=== PATIENT | female | born 1965 | race Caucasian/White ===

== ENCOUNTER 2016-09-28 16:53 | Inpatient (IN) | payer SELFPAY ==
[~2016-09-28] VITALS: Ht 160 cm; Wt 61.2 kg
[~2016-09-28 16:53] MED LIST: AMOX1TAB61 PO; CIPR250T30 PO; IBUP-1060 PO; INSU100C SQ; INSU100I13 SQ; INSU100I27 SQ
[2016-09-28] MEDS: IV NORMAL SALINE 1000ML BAG 1,000 ML IV SCH ×4 (17:45→23:00)
[2016-09-28 18:13] LABS: BASO # 0.1 x10^3/uL (0.0-0.2); BASO % 0 % (0-3); EOS % 0 % (0-3); HEMATOCRIT 40.4 % (36.0-47.0); HEMOGLOBIN 12.4 g/dL (12.0-15.5); LYMPH # 0.9 x10^3/uL (1.0-4.8); LYMPH % 3 % (24-48); MEAN CORPUSCULAR HEMOGLOBIN 27 pg (25-35); MEAN CORPUSCULAR HGB CONC 31 g/dL (31-37); MEAN CORPUSCULAR VOLUME 90 fL (79-100); MONO % 5 % (0-9); NEUT % 92 % (31-73); PLATELET COUNT 379 x10^3/uL (140-400); RED BLOOD COUNT 4.51 x10^6/uL (3.50-5.40); WHITE BLOOD COUNT 28.2 x10^3/uL (4.0-11.0)
[2016-09-28] MEDS ORDERED: INSULIN,REGULAR 150 UNIT DRIP 150 ML IV ONE (18:15)
[2016-09-28] MEDS ORDERED: ONDANSETRON PF 4 MG/2 ML VIAL. IV ONE (18:30)
[2016-09-28 18:34] LABS: CALCIUM 9.8 mg/dL (8.5-10.1); CREATININE 2.7 mg/dL (0.6-1.0); GFR 18.7; POTASSIUM 5.6 mmol/L (3.5-5.1); TOTAL BILIRUBIN 0.8 mg/dL (0.2-1.0)
[2016-09-28 18:37] LABS: PLT ESTIMATE DECREASED (ADEQUATE); TOXIC GRANULATION MOD; TOXIC VACUOLATION MOD
--- NOTE | 2016-09-28 19:19 | PHYS DOC ---
Past Medical History Past Medical History: Anxiety, Depression, Diabetes-Type I Additional Past Medical Histor: type 1 dm Past Surgical History: , Other Additional Past Surgical Histo: cataract bilat Alcohol Use: None Drug Use: None Adult General Chief Complaint Chief Complaint: NAUSEA/VOMITING/DIARRHA HPI HPI Patient is a 51 year old female who presents with complaint of nausea, vomiting , and abdominal pain. Patient states that her symptoms started 2 days ago and it severely worsened. The patient's positive emergency department by her mother. The patient has history of type 1 diabetes mellitus. Mother states that the patient came to her house yesterday complaining of her glucometer not being able to read her blood sugar level due to being too high. Despite treatment with insulin, the patient continue to get sicker and thus they came to the emergency department. Patient has been admitted in the past for diabetic complications and diabetic ketoacidosis. The patient is currently having difficulty providing any further history and appears quite ill at this time. Review of Systems Review of Systems Constitutional: Weakness, Denies fever or chills [] Eyes: Denies change in visual acuity, redness, or eye pain [] HENT: Denies nasal congestion or sore throat [] Respiratory: Denies cough or shortness of breath [] Cardiovascular: No additional information not addressed in HPI [] GI: Abdominal pain, nausea, vomiting, bloody stools or diarrhea [] : Denies dysuria or hematuria [] Musculoskeletal: Denies back pain or joint pain [] Integument: Denies rash or skin lesions [] Neurologic: Denies headache, focal weakness or sensory changes [] Endocrine: Polyuria, polydipsia Current Medications Current Medications Current Medications Medications (Trade) Dose Ordered Sig/Reji Start Time Stop Time Status Last Admin Dose Admin Acetaminophen 650 mg 650 mg PRN Q4HRS PRN 09/28/16 19:30 09/29/16 19:29 Fentanyl Citrate (Fentanyl 2ml Vial) 50 mcg PRN Q2HR PRN 09/28/16 19:30 09/29/16 19:29 Insulin Human Regular (Novolin R Iv Drip) 150 ml @ 0 mls/hr 1X ONCE 09/28/16 18:15 09/28/16 18:16 DC 09/28/16 18:58 18.5 MLS/HR Ondansetron HCl (Zofran) 4 mg PRN Q8HRS PRN 1/3/17 19:30 09/29/16 19:29 Potassium Chloride 100 ml @ 100 mls/hr PRN Q1HR PRN 09/28/16 19:30 Sodium Chloride (Iv Sodium Chloride 0.9% 1000ml Bag) 1,000 ml @ 250 mls/hr Q4H 09/28/16 20:14 Allergies Allergies Allergies Coded Allergies Type Severity Reaction Last Updated Verified No Known Drug Allergies 07/01/16 No Physical Exam Physical Exam Constitutional: Alert, afebrile, appears ill. [] HENT: Normocephalic, atraumatic, bilateral external ears normal, oropharynx dry , no oral exudates, nose normal. [] Eyes: PERRLA, EOMI, conjunctiva normal, no discharge. [] Neck: Normal range of motion, no tenderness, supple, no stridor. [] Cardiovascular: Tachycardia, regular rhythm, no murmur [] Lungs & Thorax: Tachypnea, breath sounds clear bilaterally, chest nontender to palpation [] Abdomen: Bowel sounds normal, soft, diffusely tender to palpation, no masses, no pulsatile masses. [] Skin: Warm, dry, no erythema, no rash. [] Back: No tenderness, no CVA tenderness. [] Extremities: No tenderness, no cyanosis, no clubbing, ROM intact, no edema. [] Neurologic: Lethargic, oriented 3, normal motor function, normal sensory function, no focal deficits noted. [] Current Patient Data Vital Signs Vital Signs Date Time Temp Pulse Resp B/P Pulse Ox O2 Delivery O2 Flow Rate FiO2 09/28/16 20:02 128 25 145/56 100 Room Air 09/28/16 17:00 97.7 97.7 Lab Values Laboratory Tests Test 09/28/16 17:44 09/28/16 19:19 09/28/16 19:21 White Blood Count 28.2x10^3/uL (4.0-11.0) H Red Blood Count 4.51x10^6/uL (3.50-5.40) Hemoglobin 12.4g/dL (12.0-15.5) Hematocrit 40.4% (36.0-47.0) Mean Corpuscular Volume 90fL (79-100) Mean Corpuscular Hemoglobin 27pg (25-35) Mean Corpuscular Hemoglobin Concent 31g/dL (31-37) Red Cell Distribution Width 15.0% (11.5-14.5) H Platelet Count 379x10^3/uL (140-400) Neutrophils (%) (Auto) 92% (31-73) H Lymphocytes (%) (Auto) 3% (24-48) L Monocytes (%) (Auto) 5% (0-9) Eosinophils (%) (Auto) 0% (0-3) Basophils (%) (Auto) 0% (0-3) Neutrophils # (Auto) 25.8x10^3uL (1.8-7.7) H Lymphocytes # (Auto) 0.9x10^3/uL (1.0-4.8) L Monocytes # (Auto) 1.3x10^3/uL (0.0-1.1) H Eosinophils # (Auto) 0.0x10^3/uL (0.0-0.7) Basophils # (Auto) 0.1x10^3/uL (0.0-0.2) Segmented Neutrophils % 93% (35-66) H Band Neutrophils % 2% (0-9) Lymphocytes % 4% (24-48) L Monocytes % 1% (0-10) Toxic Granulation Mod Toxic Vacuolation Mod Platelet Estimate Decreased (ADEQUATE) Sodium Level 134mmol/L (136-145) L Potassium Level 5.6mmol/L (3.5-5.1) H Chloride Level 85mmol/L (98-107) L Carbon Dioxide Level 9mmol/L (21-32) *L Anion Gap 40 (6-14) H Blood Urea Nitrogen 78mg/dL (7-20) H Creatinine 2.7mg/dL (0.6-1.0) H Estimated GFR (Cockcroft-Gault) 18.7 BUN/Creatinine Ratio 29 (6-20) H Glucose Level 983mg/dL (70-99) *H Serum Osmolality 382mOsm/Kg (279-304) H Calcium Level 9.8mg/dL (8.5-10.1) Total Bilirubin 0.8mg/dL (0.2-1.0) Aspartate Amino Transferase (AST) 15U/L (15-37) Alanine Aminotransferase (ALT) 16U/L (14-59) Alkaline Phosphatase 138U/L (46-116) H Total Protein 8.0g/dL (6.4-8.2) Albumin 4.0g/dL (3.4-5.0) Albumin/Globulin Ratio 1.0 (1.0-1.7) Magnesium Level 3.1mg/dL (1.8-2.4) H Urine Collection Type U cath Urine Color Yellow Urine Clarity Clear Urine pH 5.0 Urine Specific Sharon 1.020 Urine Protein Negativemg/dL (NEG-TRACE) Urine Glucose (UA) >=1000mg/dL (NEG) Urine Ketones (Stick) >=80mg/dL (NEG) Urine Blood Negative (NEG) Urine Nitrite Negative (NEG) Urine Bilirubin Negative (NEG) Urine Urobilinogen Dipstick 0.2mg/dL (0.2 mg/dL) Urine Leukocyte Esterase Negative (NEG) Urine RBC 0/HPF (0-2) Urine WBC Rare/HPF (0-4) Urine Squamous Epithelial Cells Few/LPF Urine Transitional Epithelial Cells Occ/LPF Urine Bacteria 0/HPF (0-FEW) Urine Mucus Slight/LPF Laboratory Tests 09/28/16 17:44 Laboratory Tests 09/28/16 17:44 EKG EKG Interpreted by me: Heart rate 121, sinus tachycardia, normal intervals, normal axis, no acute ST/T-wave abnormalities present [] Radiology/Procedures Radiology/Procedures One view AP chest x-ray interpreted by me: No infiltrates, no effusions, normal cardiac silhouette [] Course & Med Decision Making Course & Med Decision Making Pertinent Labs and Imaging studies reviewed. (See chart for details) Patient was started on 2 L of IV fluids in the emergency department. The patient was found to have a high anion gap and critically high blood sugar of 983. Patient was started on an insulin drip and continued on IV fluids. I spoke with Dr. Guadalupe who accepted care patient in hospital. Patient transferred to ICU for further care. Care time excluding procedures: 45 minutes Dragon Disclaimer Dragon Disclaimer This electronic medical record was generated, in whole or in part, using a voice recognition dictation system. Departure Departure Impression: Primary Impression: Diabetic ketoacidosis Additional Impression: Acute renal failure Disposition: ADMITTED INPATIENT Admitting Physician: Other Condition: GUARDED Referrals: NO PCP (PCP) Problem Qualifiers Primary Impression: Diabetic ketoacidosis Diabetes mellitus type: type 1 Diabetes mellitus complication detail: without coma Qualified Code: E10.10 - Type 1 diabetes mellitus with ketoacidosis without coma Additional Impression: Acute renal failure Acute renal failure type: unspecified Qualified Code: N17.9 - Acute kidney failure, unspecified SILVANA LOPEZ MD Sep 28, 2016 19:19
[2016-09-28 19:29] LABS: BILIRUBIN,URINE NEGATIVE (NEG); GLUCOSE,URINE >=1000 mg/dL (NEG); NITRITE,URINE NEGATIVE (NEG); PROTEIN,URINE NEGATIVE (NEG-TRACE); UROBILINOGEN,URINE 0.2 mg/dL (0.2 mg/dL)
[2016-09-28] MEDS ORDERED: ACETAMINOPHEN 325 MG TABLET. PO PRN (19:30)
[2016-09-28] MEDS ORDERED: FENTANYL PF 100 MCG/2 ML VIAL. IV PRN (19:30)
[2016-09-28] MEDS ORDERED: ONDANSETRON PF 4 MG/2 ML VIAL. IV PRN (19:30)
[2016-09-28] MEDS ORDERED: POTASSIUM CHLORIDE 10MEQ 100 ML IV PRN ×5 (19:30→22:30)
[2016-09-28 19:41] LABS: RBC,URINE 0 /HPF (0-2)
[2016-09-28 19:42] LABS: BACTERIA,URINE 0 /HPF (0-FEW); SQUAMOUS EPITHELIAL CELL,UR FEW /LPF; WBC,URINE RARE /HPF (0-4)
[2016-09-28 22:00] VITALS: BP 135/61
[2016-09-28] MEDS ORDERED: SODIUM PHOSPHATE 40 MMOL in IV NORMAL SALINE 500ML BAG 500 ML IV PRN (22:30)
[2016-09-28] MEDS ORDERED: SODIUM PHOSPHATE 10 MMOL in IV DEXTROSE 5% 250 ML IV PRN (22:30)
[2016-09-28] MEDS ORDERED: SODIUM PHOSPHATE 20 MMOL in IV DEXTROSE 5% 250 ML IV PRN (22:30)
[2016-09-28 23:00] VITALS: BP 120/50
[2016-09-28] MEDS ORDERED: INSULIN REGULAR VIAL 150 UNIT in 0.9 % SODIUM CHLORIDE 150ML 150 ML IV PRN (23:00)
[2016-09-28] MEDS: IV DEXTROSE 5 %-0.45 % NACL 1,000 ML IV SCH (23:00)
[2016-09-28] MEDS: IV 1/2 NORMAL SALINE 1,000 ML IV SCH (23:00)
[2016-09-28] MEDS ORDERED: SODIUM BICARBONATE VIAL 50 MEQ in IV 1/2 NORMAL SALINE 1,000 ML IV PRN (23:15)
[2016-09-28 23:17] LABS: NEG OBC UR NEG
[2016-09-28 23:18] LABS: ALBUMIN 3.7 g/dL (3.4-5.0); DIRECT BILIRUBIN 0.1 mg/dL (0.0-0.2); TOTAL BILIRUBIN 0.7 mg/dL (0.2-1.0); TOTAL PROTEIN 8.2 g/dL (6.4-8.2)
[2016-09-28 23:18] LABS: POS OBC UR POS
--- NOTE | 2016-09-28 23:19 | ACF ---
Admission Forms Criteria DIABETES Clinical Indications for Admission to Inpatient Care (Place 'X' for any and all applicable criteria): Admission is indicated by presence of ALL (if I & II) or ANY ONE (if III or IV) of the following (1)(2)(3)(4): [X]I. Diabetes is uncontrolled as indicated by ANY ONE of the following: [ ]a) Diabetic ketoacidosis as indicated by ALL of the following (8): [ ]i) Hyperglycemia (eg, plasma glucose greater than 200 mg/ dL (11.1 mmol/L)) [ ]ii) Acidosis (eg, arterial pH less than 7.30, serum bicarbonate level less than 15 mEq/L (mmol/L)) [ ]iii) Moderate ketonuria or ketonemia [ ]b) Hyperglycemic hyperosmolar state as indicated by ALL of the following(9)(10): [ ]i) Neurologic dysfunction (eg, stupor, coma, hemiparesis , seizure)(13) [ ]ii) Plasma glucose greater than 600 mg/dL (33.3 mmol/L) [ ]iii) Serum osmolality greater than 320 mOsm/kg (mmol/kg) [X]c) Severe signs or symptoms secondary to hyperglycemia indicated by ANY ONE of the following: [ ]i) Altered mental status(10) [ ]ii) Significant hypovolemia or dehydration [X]iii) Intractable nausea or vomiting [ ]iv) Unexplained fever or severe infection [ ]v) Severe electrolyte abnormality (eg, hypokalemia, hyperkalemia, hypernatremia) [X]II. Management at other levels of care (Also use Diabetes: Observation Care as appropriate) is not feasible because of ANY ONE of the following: [X]a) Condition was not adequately corrected with treatment at other levels of care. [ ]b) Treatment at other levels of care is not appropriate because of condition severity (eg, hyperosmolar coma). [ ]III. Contraindications and/or Inappropriate clinical situations for Observational Care in patients with Diabetes, when ANY ONE of the following is required: [ ]a) Patient require specific diagnostic workup or therapeutic intervention 22 [ ]b) Patient with abnormal vital signs or altered mental status 23 [ ]IV. General contraindications and/or Inappropriate clinical situations for Observational Care in patients with Diabetes, when ANY ONE of the following is required: [ ]a) Prediction of prolongation of LOS based on ANY ONE of the following may be considered as a contraindication for observational care 2, 3, 4, 5, 6, 7, 8, 9, 10, 11 [ ]i) Age > 65 yrs. [ ]ii) Patient arriving by ambulance [ ]iii) Patient with high acuity [ ]iv) Patient requiring vital sign monitoring [ ]v) Patient on IV medication [ ]b) Systolic blood pressures 180mmHg 3,12 [ ]c) Patient with altered mental status including delirium and other alteration of consciousness, (3) [ ]d) Patient whose discharge disposition will be to a correction home or rehabilitation home should not be managed in Emergency Department Observation Unit. CMS rule requires 3 days hospital stay before such placement.3,13 [ ]e) Patient with failure to thrive due to broad array of etiologies 3,16,17 [ ]f) Inability to ambulate 3,14 Extended stay beyond goal length of stay may be needed for(3)(20): [ ]a) Treatment of precipitating causes [ ]b) Development of hypoglycemia [ ]c) Complications of treatment [ ]d) Complications of decompensated diabetes (eg, acute gastric dilatation, persistent metabolic or neurologic derangement) [ ]e) Active Comorbidities [ ]f) Older patients( 65 years or older) The original [employer] content created by [employer] has been revised. The portions of the content which have been revised are identified through the use of italic text or in bold,and [facility] has neither reviewed nor approved the modified material. All other unmodified content is copyright [employer]. Please see references footnoted in the original [facility] edition 2016 Admission Criteria Met?: Yes VINCENZO MONDRAGON Sep 28, 2016 23:19
[2016-09-28 23:23] LABS: BARBITURATES NEG (NEG); BENZODIAZEPINES NEG (NEG); CANNABINOIDS NEG (NEG); COCAINE NEG (NEG); METHADONE NEG (NEG); OPIATES NEG (NEG); PHENCYCLIDINE NEG (NEG)
[2016-09-28 23:24] LABS: ETHANOL, URINE NEG (NEG)
[2016-09-29] VITALS (15 sets, daily range): BP systolic 98–185; BP diastolic 37–85
--- NOTE | 2016-09-29 00:10 | HP ---
ADMIT DATE: 09/28/2016 CHIEF COMPLAINT: Nausea, vomiting, diarrhea. HISTORY OF PRESENT ILLNESS: The patient is a 51-year-old woman with type 1 diabetes and previous admissions for hyperglycemia who who presented to the Emergency Room with complaints of nausea, vomiting and abdominal pain that started apparently 2 days prior to presentation. The story is related by her mother as patient apparently was going over to her mom's but has been somewhat incoherent since. She is not able to contribute to the history by herself at this point. Her mother apparently checked her blood sugar with a glucometer and was unable to get any readings as levels were too high. In the Emergency Room, she was found with blood sugars of 983 with a of gap 40, prompting admission for DKA. PAST MEDICAL HISTORY: Diabetes mellitus. FAMILY HISTORY: Diabetes, CAD. SOCIAL HISTORY: Lives by herself. No toxic habits. ALLERGIES: No known drug allergies. MEDICATIONS: MAR reconciled with home medications. REVIEW OF SYSTEMS: Unable to obtain secondary to nonverbal state. PHYSICAL EXAMINATION: VITAL SIGNS: From today show a blood pressure of 119/46, heart rate of 126, respiratory rate at 20, She is afebrile, pulsing at 100% on room air. GENERAL: This is a 51-year-old well-nourished woman, obtunded, resting in bed. HEENT: Shows no scleral icterus. Oral mucosa is dry. NECK: Supple. LUNGS: Fairly clear anteriorly. CARDIOVASCULAR: Tachycardic. ABDOMEN: Positive bowel sounds, some grimacing with palpation of left lower quadrant. EXTREMITIES: Show no edema. SKIN: Warm, soft and dry without any rash. LABORATORY DATA: CBC from today shows a WBC of 28.2, hemoglobin 12.4, platelets of 379, manual diff with segmented neutrophils at 93, bands at 2. Chemistries with a BUN and creatinine of 78 and 2.7. Electrolytes with a sodium of 134, potassium 5.6, chloride 85, carbon dioxide at 9, osmolality at 382. LFTs essentially normal, mildly elevated alkaline phosphatase at 138. Urine with elevated glucose and ketones, no sign of infection. Tox screen was negative. RADIOGRAPHIC IMAGING: Shows a chest x-ray reviewed by myself without any cardiopulmonary abnormalities noted. ASSESSMENT AND PLAN: The patient is a 51-year-old woman presenting in DKA. She has been admitted to the ICU for DKA protocol with insulin drip and fluids as well as electrolyte repletion as indicated. We will monitor glucose closely. Elevated WBC and a left shift, highly suspicious for infectious source. Neither chest x-ray nor urine, however, are revealing. We will obtain blood cultures. Hold off on antibiotics at this time. Creatinine and BUN indicative of acute kidney injury, most likely due to DKA/dehydration. We will monitor with ongoing fluid repletion. Baseline for her is creatinine of 0.7. Prophylaxis will be instituted with PPI IV for the time being as she is n.p.o. MARTITA OROZCO MD DR: JESIKA/nts JOB#: [id number] / [id number] TEGAN
[2016-09-29] MEDS: IV 1/2 NORMAL SALINE 1,000 ML IV SCH ×7 (01:00→17:14)
[2016-09-29] MEDS: IV DEXTROSE 5 %-0.45 % NACL 1,000 ML IV SCH ×4 (03:00→11:36)
[2016-09-29 03:07] LABS: BASO # 0.1 x10^3/uL (0.0-0.2); BASO % 0 % (0-3); EOS % 0 % (0-3); HEMATOCRIT 39.6 % (36.0-47.0); HEMOGLOBIN 12.8 g/dL (12.0-15.5); LYMPH # 1.1 x10^3/uL (1.0-4.8); LYMPH % 5 % (24-48); MEAN CORPUSCULAR HEMOGLOBIN 28 pg (25-35); MEAN CORPUSCULAR HGB CONC 32 g/dL (31-37); MEAN CORPUSCULAR VOLUME 86 fL (79-100); MONO % 7 % (0-9); NEUT % 88 % (31-73); PLATELET COUNT 335 x10^3/uL (140-400); RED BLOOD COUNT 4.59 x10^6/uL (3.50-5.40); RED CELL DISTRIBUTION WIDTH 14.8 % (11.5-14.5); WHITE BLOOD COUNT 22.8 x10^3/uL (4.0-11.0)
[2016-09-29] MEDS ORDERED: SODIUM BICARBONATE VIAL 50 MEQ in IV 1/2 NORMAL SALINE 1,000 ML IV PRN (03:30)
[2016-09-29] MEDS: IV NORMAL SALINE 1000ML BAG 1,000 ML IV SCH ×6 (06:07→11:04)
--- NOTE | 2016-09-29 06:45 | EKG ---
[facility] [address] [place] [id number] Test Date: 2016-09-28 Test Time: 18:36:57 Pat Name: ANDREIA DUARTE Department: Room: 108 1 Gender: F Patient Care Technician: : 1965 Requested By: SILVANA LOPEZ Order Number: [id number] Reading MD: Jessica Mathur Measurements Intervals [place] Rate: 121 P: 56 [place]: 92 QRS: 65 QRSD: 90 T: 25 QT: 310 QTc: 443 Interpretive Statements SINUS TACHYCARDIA LEFT ATRIAL ABNORMALITY Electronically Signed On 10-03-2016 21:47:10 SURVEILLANCE INSPECTOR by Jessica Mathur
[2016-09-29] MEDS ORDERED: DEXTROSE 50% 25 GM / 50ML DISP.SYRIN. IV ONE ×2 (06:53→07:45)
[2016-09-29] MEDS ORDERED: IV DEXTROSE 5 %-0.45 % NACL 1,000 ML IV PRN (07:15)
[2016-09-29] MEDS ORDERED: MAGNESIUM SULFATE 4GM 100 ML IV SCH (09:00)
--- NOTE | 2016-09-29 09:01 | RAD ---
Portable chest, 09/28/2016: History: High blood sugar Comparison is made to a study from 07/03/2016. The heart size and pulmonary vascularity are normal. No pulmonary infiltrates are seen. There is no evidence of pleural fluid. IMPRESSION: No acute cardiopulmonary no mass is detected.
[2016-09-29] MEDS: PANTOPRAZOLE IV PUSH 40 MG VIAL. IVP SCH (09:07)
[2016-09-29 11:24] LABS: MAGNESIUM 2.8 mg/dL (1.8-2.4); PHOSPHORUS 2.9 mg/dL (2.6-4.7); POTASSIUM 4.1 mmol/L (3.5-5.1)
[2016-09-29 11:28] LABS: CALCIUM 9.3 mg/dL (8.5-10.1); CREATININE 2.1 mg/dL (0.6-1.0); GFR 24.9
[2016-09-29 12:12] LABS: CALCIUM 8.6 mg/dL (8.5-10.1); CREATININE 1.5 mg/dL (0.6-1.0); GFR 36.8
[2016-09-29] MEDS ORDERED: DEXTROSE 50% 25 GM / 50ML DISP.SYRIN. IV PRN (12:45)
--- NOTE | 2016-09-29 13:42 | PDOC ---
PROGRESS NOTES Chief Complaint Chief Complaint DKA AMS ASSESSMENT AND PLAN: 1. DKA: on insulin gtt this AM with gap closing. when BG stable, switch to ISS/ long acting insulin, monitor closely 2. AMS: slowly improving, remains nonverbal at this point. drug screen neg. poss 2/2 DKA 3. leukocytosis: reactive, but unk trigger. no sign of focal infect. counts improving. Vitals Vitals Vital Signs Date Time Temp Pulse Resp B/P Pulse Ox O2 Delivery O2 Flow Rate FiO2 09/29/16 12:00 100 20 174/69 98 Room Air 09/29/16 04:00 98.0 98.0 Physical Exam General: No acute distress, Other (obtunded, following simple commands, nonverbal) Heart: Regular rate Lungs: Clear Abdomen: Normal bowel sounds, No tenderness Extremities: No clubbing, No edema Skin: No rashes Labs LABS Laboratory Tests Test 09/28/16 17:44 09/28/16 19:19 09/28/16 19:21 09/28/16 20:22 White Blood Count 28.2x10^3/uL (4.0-11.0) Red Blood Count 4.51x10^6/uL (3.50-5.40) Hemoglobin 12.4g/dL (12.0-15.5) Hematocrit 40.4% (36.0-47.0) Mean Corpuscular Volume 90fL (79-100) Mean Corpuscular Hemoglobin 27pg (25-35) Mean Corpuscular Hemoglobin Concent 31g/dL (31-37) Red Cell Distribution Width 15.0% (11.5-14.5) Platelet Count 379x10^3/uL (140-400) Neutrophils (%) (Auto) 92% (31-73) Lymphocytes (%) (Auto) 3% (24-48) Monocytes (%) (Auto) 5% (0-9) Eosinophils (%) (Auto) 0% (0-3) Basophils (%) (Auto) 0% (0-3) Neutrophils # (Auto) 25.8x10^3uL (1.8-7.7) Lymphocytes # (Auto) 0.9x10^3/uL (1.0-4.8) Monocytes # (Auto) 1.3x10^3/uL (0.0-1.1) Eosinophils # (Auto) 0.0x10^3/uL (0.0-0.7) Basophils # (Auto) 0.1x10^3/uL (0.0-0.2) Segmented Neutrophils % 93% (35-66) Band Neutrophils % 2% (0-9) Lymphocytes % 4% (24-48) Monocytes % 1% (0-10) Toxic Granulation Mod Toxic Vacuolation Mod Platelet Estimate Decreased (ADEQUATE) Sodium Level 134mmol/L (136-145) Potassium Level 5.6mmol/L (3.5-5.1) Chloride Level 85mmol/L (98-107) Carbon Dioxide Level 9mmol/L (21-32) Anion Gap 40 (6-14) Blood Urea Nitrogen 78mg/dL (7-20) Creatinine 2.7mg/dL (0.6-1.0) Estimated GFR (Cockcroft-Gault) 18.7 BUN/Creatinine Ratio 29 (6-20) Glucose Level 983mg/dL (70-99) 796mg/dL (70-99) Serum Osmolality 382mOsm/Kg (279-304) Calcium Level 9.8mg/dL (8.5-10.1) Total Bilirubin 0.8mg/dL (0.2-1.0) 0.7mg/dL (0.2-1.0) Aspartate Amino Transf (AST/SGOT) 15U/L (15-37) 11U/L (15-37) Alanine Aminotransferase (ALT/SGPT) 16U/L (14-59) 16U/L (14-59) Alkaline Phosphatase 138U/L (46-116) 145U/L (46-116) Total Protein 8.0g/dL (6.4-8.2) 8.2g/dL (6.4-8.2) Albumin 4.0g/dL (3.4-5.0) 3.7g/dL (3.4-5.0) Albumin/Globulin Ratio 1.0 (1.0-1.7) Magnesium Level 3.1mg/dL (1.8-2.4) Urine Collection Type U cath Urine Color Yellow Urine Clarity Clear Urine pH 5.[address] [place] 1.020 Urine Protein Negativemg/dL (NEG-TRACE) Urine Glucose (UA) >=1000mg/dL (NEG) Urine Ketones (Stick) >=80mg/dL (NEG) Urine Blood Negative (NEG) Urine Nitrite Negative (NEG) Urine Bilirubin Negative (NEG) Urine Urobilinogen Dipstick 0.2mg/dL (0.2 mg/dL) Urine Leukocyte Esterase Negative (NEG) Urine RBC 0/HPF (0-2) Urine WBC Rare/HPF (0-4) Urine Squamous Epithelial Cells Few/LPF Urine Transitional Epithelial Cells Occ/LPF Urine Bacteria 0/HPF (0-FEW) Urine Mucus Slight/LPF Urine Test Negative (NEG) Urine Opiates Screen Neg (NEG) Urine Methadone Screen Neg (NEG) Urine Barbiturates Neg (NEG) Urine Phencyclidine Screen Neg (NEG) Urine Amphetamine/Methamphetamine Neg (NEG) Urine Benzodiazepines Screen Neg (NEG) Urine Cocaine Screen Neg (NEG) Urine Cannabinoids Screen Neg (NEG) Urine Ethyl Alcohol Neg (NEG) Phosphorus Level 8.0mg/dL (2.6-4.7) Direct Bilirubin 0.1mg/dL (0.0-0.2) Lipase 432U/L (73-393) Ethyl Alcohol Level < 10mg/dL (0-10) Test 09/28/16 22:19 09/28/16 23:25 09/29/16 00:54 09/29/16 00:58 Glucose (Fingerstick) 544mg/dL (70-99) 434mg/dL (70-99) 322mg/dL (70-99) White Blood Count 22.8x10^3/uL (4.0-11.0) Red Blood Count 4.59x10^6/uL (3.50-5.40) Hemoglobin 12.8g/dL (12.0-15.5) Hematocrit 39.6% (36.0-47.0) Mean Corpuscular Volume 86fL (79-100) Mean Corpuscular Hemoglobin 28pg (25-35) Mean Corpuscular Hemoglobin Concent 32g/dL (31-37) Red Cell Distribution Width 14.8% (11.5-14.5) Platelet Count 335x10^3/uL (140-400) Neutrophils (%) (Auto) 88% (31-73) Lymphocytes (%) (Auto) 5% (24-48) Monocytes (%) (Auto) 7% (0-9) Eosinophils (%) (Auto) 0% (0-3) Basophils (%) (Auto) 0% (0-3) Neutrophils # (Auto) 20.1x10^3uL (1.8-7.7) Lymphocytes # (Auto) 1.1x10^3/uL (1.0-4.8) Monocytes # (Auto) 1.6x10^3/uL (0.0-1.1) Eosinophils # (Auto) 0.0x10^3/uL (0.0-0.7) Basophils # (Auto) 0.1x10^3/uL (0.0-0.2) Sodium Level 147mmol/L (136-145) Potassium Level 4.1mmol/L (3.5-5.1) Chloride Level 103mmol/L (98-107) Carbon Dioxide Level 21mmol/L (21-32) Anion Gap 23 (6-14) Blood Urea Nitrogen 67mg/dL (7-20) Creatinine 2.1mg/dL (0.6-1.0) Estimated GFR (Cockcroft-Gault) 24.9 Glucose Level 346mg/dL (70-99) Calcium Level 9.3mg/dL (8.5-10.1) Phosphorus Level 2.9mg/dL (2.6-4.7) Magnesium Level 2.8mg/dL (1.8-2.4) Test 09/29/16 01:10 09/29/16 02:19 09/29/16 03:50 09/29/16 05:04 Lactic Acid Level 2.7mmol/L (0.4-2.0) Glucose (Fingerstick) 245mg/dL (70-99) 183mg/dL (70-99) 143mg/dL (70-99) Test 09/29/16 06:52 09/29/16 06:57 09/29/16 08:09 09/29/16 09:23 Glucose (Fingerstick) 51mg/dL (70-99) 43mg/dL (70-99) 165mg/dL (70-99) 237mg/dL (70-99) Test 09/29/16 10:26 09/29/16 11:25 09/29/16 11:55 09/29/16 12:26 Glucose (Fingerstick) 182mg/dL (70-99) 153mg/dL (70-99) 117mg/dL (70-99) Sodium Level 146mmol/L (136-145) Potassium Level 4.0mmol/L (3.5-5.1) Chloride Level 110mmol/L (98-107) Carbon Dioxide Level 25mmol/L (21-32) Anion Gap 11 (6-14) Blood Urea Nitrogen 48mg/dL (7-20) Creatinine 1.5mg/dL (0.6-1.0) Estimated GFR (Cockcroft-Gault) 36.8 Glucose Level 145mg/dL (70-99) Calcium Level 8.6mg/dL (8.5-10.1) Review of Systems Review of Systems obtunded, nonverbal Comment Review of Relevant I have reviewed the following items edna (where applicable) has been applied. Labs Laboratory Tests Test 09/28/16 17:44 09/28/16 19:19 09/28/16 19:21 09/28/16 20:22 White Blood Count 28.2x10^3/uL (4.0-11.0) Red Blood Count 4.51x10^6/uL (3.50-5.40) Hemoglobin 12.4g/dL (12.0-15.5) Hematocrit 40.4% (36.0-47.0) Mean Corpuscular Volume 90fL (79-100) Mean Corpuscular Hemoglobin 27pg (25-35) Mean Corpuscular Hemoglobin Concent 31g/dL (31-37) Red Cell Distribution Width 15.0% (11.5-14.5) Platelet Count 379x10^3/uL (140-400) Neutrophils (%) (Auto) 92% (31-73) Lymphocytes (%) (Auto) 3% (24-48) Monocytes (%) (Auto) 5% (0-9) Eosinophils (%) (Auto) 0% (0-3) Basophils (%) (Auto) 0% (0-3) Neutrophils # (Auto) 25.8x10^3uL (1.8-7.7) Lymphocytes # (Auto) 0.9x10^3/uL (1.0-4.8) Monocytes # (Auto) 1.3x10^3/uL (0.0-1.1) Eosinophils # (Auto) 0.0x10^3/uL (0.0-0.7) Basophils # (Auto) 0.1x10^3/uL (0.0-0.2) Segmented Neutrophils % 93% (35-66) Band Neutrophils % 2% (0-9) Lymphocytes % 4% (24-48) Monocytes % 1% (0-10) Toxic Granulation Mod Toxic Vacuolation Mod Platelet Estimate Decreased (ADEQUATE) Sodium Level 134mmol/L (136-145) Potassium Level 5.6mmol/L (3.5-5.1) Chloride Level 85mmol/L (98-107) Carbon Dioxide Level 9mmol/L (21-32) Anion Gap 40 (6-14) Blood Urea Nitrogen 78mg/dL (7-20) Creatinine 2.7mg/dL (0.6-1.0) Estimated GFR (Cockcroft-Gault) 18.7 BUN/Creatinine Ratio 29 (6-20) Glucose Level 983mg/dL (70-99) 796mg/dL (70-99) Serum Osmolality 382mOsm/Kg (279-304) Calcium Level 9.8mg/dL (8.5-10.1) Total Bilirubin 0.8mg/dL (0.2-1.0) 0.7mg/dL (0.2-1.0) Aspartate Amino Transf (AST/SGOT) 15U/L (15-37) 11U/L (15-37) Alanine Aminotransferase (ALT/SGPT) 16U/L (14-59) 16U/L (14-59) Alkaline Phosphatase 138U/L (46-116) 145U/L (46-116) Total Protein 8.0g/dL (6.4-8.2) 8.2g/dL (6.4-8.2) Albumin 4.0g/dL (3.4-5.0) 3.7g/dL (3.4-5.0) Albumin/Globulin Ratio 1.0 (1.0-1.7) Magnesium Level 3.1mg/dL (1.8-2.4) Urine Collection Type U cath Urine Color Yellow Urine Clarity Clear Urine pH 5.[address] [facility] [place] 1.020 Urine Protein Negativemg/dL (NEG-TRACE) Urine Glucose (UA) >=1000mg/dL (NEG) Urine Ketones (Stick) >=80mg/dL (NEG) Urine Blood Negative (NEG) Urine Nitrite Negative (NEG) Urine Bilirubin Negative (NEG) Urine Urobilinogen Dipstick 0.2mg/dL (0.2 mg/dL) Urine Leukocyte Esterase Negative (NEG) Urine RBC 0/HPF (0-2) Urine WBC Rare/HPF (0-4) Urine Squamous Epithelial Cells Few/LPF Urine Transitional Epithelial Cells Occ/LPF Urine Bacteria 0/HPF (0-FEW) Urine Mucus Slight/LPF Urine Test Negative (NEG) Urine Opiates Screen Neg (NEG) Urine Methadone Screen Neg (NEG) Urine Barbiturates Neg (NEG) Urine Phencyclidine Screen Neg (NEG) Urine Amphetamine/Methamphetamine Neg (NEG) Urine Benzodiazepines Screen Neg (NEG) Urine Cocaine Screen Neg (NEG) Urine Cannabinoids Screen Neg (NEG) Urine Ethyl Alcohol Neg (NEG) Phosphorus Level 8.0mg/dL (2.6-4.7) Direct Bilirubin 0.1mg/dL (0.0-0.2) Lipase 432U/L (73-393) Ethyl Alcohol Level < 10mg/dL (0-10) Test 09/28/16 22:19 09/28/16 23:25 09/29/16 00:54 09/29/16 00:58 Glucose (Fingerstick) 544mg/dL (70-99) 434mg/dL (70-99) 322mg/dL (70-99) White Blood Count 22.8x10^3/uL (4.0-11.0) Red Blood Count 4.59x10^6/uL (3.50-5.40) Hemoglobin 12.8g/dL (12.0-15.5) Hematocrit 39.6% (36.0-47.0) Mean Corpuscular Volume 86fL (79-100) Mean Corpuscular Hemoglobin 28pg (25-35) Mean Corpuscular Hemoglobin Concent 32g/dL (31-37) Red Cell Distribution Width 14.8% (11.5-14.5) Platelet Count 335x10^3/uL (140-400) Neutrophils (%) (Auto) 88% (31-73) Lymphocytes (%) (Auto) 5% (24-48) Monocytes (%) (Auto) 7% (0-9) Eosinophils (%) (Auto) 0% (0-3) Basophils (%) (Auto) 0% (0-3) Neutrophils # (Auto) 20.1x10^3uL (1.8-7.7) Lymphocytes # (Auto) 1.1x10^3/uL (1.0-4.8) Monocytes # (Auto) 1.6x10^3/uL (0.0-1.1) Eosinophils # (Auto) 0.0x10^3/uL (0.0-0.7) Basophils # (Auto) 0.1x10^3/uL (0.0-0.2) Sodium Level 147mmol/L (136-145) Potassium Level 4.1mmol/L (3.5-5.1) Chloride Level 103mmol/L (98-107) Carbon Dioxide Level 21mmol/L (21-32) Anion Gap 23 (6-14) Blood Urea Nitrogen 67mg/dL (7-20) Creatinine 2.1mg/dL (0.6-1.0) Estimated GFR (Cockcroft-Gault) 24.9 Glucose Level 346mg/dL (70-99) Calcium Level 9.3mg/dL (8.5-10.1) Phosphorus Level 2.9mg/dL (2.6-4.7) Magnesium Level 2.8mg/dL (1.8-2.4) Test 09/29/16 01:10 09/29/16 02:19 09/29/16 03:50 09/29/16 05:04 Lactic Acid Level 2.7mmol/L (0.4-2.0) Glucose (Fingerstick) 245mg/dL (70-99) 183mg/dL (70-99) 143mg/dL (70-99) Test 09/29/16 06:52 09/29/16 06:57 09/29/16 08:09 09/29/16 09:23 Glucose (Fingerstick) 51mg/dL (70-99) 43mg/dL (70-99) 165mg/dL (70-99) 237mg/dL (70-99) Test 09/29/16 10:26 09/29/16 11:25 09/29/16 11:55 09/29/16 12:26 Glucose (Fingerstick) 182mg/dL (70-99) 153mg/dL (70-99) 117mg/dL (70-99) Sodium Level 146mmol/L (136-145) Potassium Level 4.0mmol/L (3.5-5.1) Chloride Level 110mmol/L (98-107) Carbon Dioxide Level 25mmol/L (21-32) Anion Gap 11 (6-14) Blood Urea Nitrogen 48mg/dL (7-20) Creatinine 1.5mg/dL (0.6-1.0) Estimated GFR (Cockcroft-Gault) 36.8 Glucose Level 145mg/dL (70-99) Calcium Level 8.6mg/dL (8.5-10.1) Laboratory Tests Test 09/28/16 17:44 09/28/16 19:19 09/28/16 19:21 09/28/16 20:22 White Blood Count 28.2x10^3/uL (4.0-11.0) Red Blood Count 4.51x10^6/uL (3.50-5.40) Hemoglobin 12.4g/dL (12.0-15.5) Hematocrit 40.4% (36.0-47.0) Mean Corpuscular Volume 90fL (79-100) Mean Corpuscular Hemoglobin 27pg (25-35) Mean Corpuscular Hemoglobin Concent 31g/dL (31-37) Red Cell Distribution Width 15.0% (11.5-14.5) Platelet Count 379x10^3/uL (140-400) Neutrophils (%) (Auto) 92% (31-73) Lymphocytes (%) (Auto) 3% (24-48) Monocytes (%) (Auto) 5% (0-9) Eosinophils (%) (Auto) 0% (0-3) Basophils (%) (Auto) 0% (0-3) Neutrophils # (Auto) 25.8x10^3uL (1.8-7.7) Lymphocytes # (Auto) 0.9x10^3/uL (1.0-4.8) Monocytes # (Auto) 1.3x10^3/uL (0.0-1.1) Eosinophils # (Auto) 0.0x10^3/uL (0.0-0.7) Basophils # (Auto) 0.1x10^3/uL (0.0-0.2) Segmented Neutrophils % 93% (35-66) Band Neutrophils % 2% (0-9) Lymphocytes % 4% (24-48) Monocytes % 1% (0-10) Toxic Granulation Mod Toxic Vacuolation Mod Platelet Estimate Decreased (ADEQUATE) Sodium Level 134mmol/L (136-145) Potassium Level 5.6mmol/L (3.5-5.1) Chloride Level 85mmol/L (98-107) Carbon Dioxide Level 9mmol/L (21-32) Anion Gap 40 (6-14) Blood Urea Nitrogen 78mg/dL (7-20) Creatinine 2.7mg/dL (0.6-1.0) Estimated GFR (Cockcroft-Gault) 18.7 BUN/Creatinine Ratio 29 (6-20) Glucose Level 983mg/dL (70-99) 796mg/dL (70-99) Serum Osmolality 382mOsm/Kg (279-304) Calcium Level 9.8mg/dL (8.5-10.1) Total Bilirubin 0.8mg/dL (0.2-1.0) 0.7mg/dL (0.2-1.0) Aspartate Amino Transf (AST/SGOT) 15U/L (15-37) 11U/L (15-37) Alanine Aminotransferase (ALT/SGPT) 16U/L (14-59) 16U/L (14-59) Alkaline Phosphatase 138U/L (46-116) 145U/L (46-116) Total Protein 8.0g/dL (6.4-8.2) 8.2g/dL (6.4-8.2) Albumin 4.0g/dL (3.4-5.0) 3.7g/dL (3.4-5.0) Albumin/Globulin Ratio 1.0 (1.0-1.7) Magnesium Level 3.1mg/dL (1.8-2.4) Urine Collection Type U cath Urine Color Yellow Urine Clarity Clear Urine pH 5.[address] [facility] [place] 1.020 Urine Protein Negativemg/dL (NEG-TRACE) Urine Glucose (UA) >=1000mg/dL (NEG) Urine Ketones (Stick) >=80mg/dL (NEG) Urine Blood Negative (NEG) Urine Nitrite Negative (NEG) Urine Bilirubin Negative (NEG) Urine Urobilinogen Dipstick 0.2mg/dL (0.2 mg/dL) Urine Leukocyte Esterase Negative (NEG) Urine RBC 0/HPF (0-2) Urine WBC Rare/HPF (0-4) Urine Squamous Epithelial Cells Few/LPF Urine Transitional Epithelial Cells Occ/LPF Urine Bacteria 0/HPF (0-FEW) Urine Mucus Slight/LPF Urine Test Negative (NEG) Urine Opiates Screen Neg (NEG) Urine Methadone Screen Neg (NEG) Urine Barbiturates Neg (NEG) Urine Phencyclidine Screen Neg (NEG) Urine Amphetamine/Methamphetamine Neg (NEG) Urine Benzodiazepines Screen Neg (NEG) Urine Cocaine Screen Neg (NEG) Urine Cannabinoids Screen Neg (NEG) Urine Ethyl Alcohol Neg (NEG) Phosphorus Level 8.0mg/dL (2.6-4.7) Direct Bilirubin 0.1mg/dL (0.0-0.2) Lipase 432U/L (73-393) Ethyl Alcohol Level < 10mg/dL (0-10) Test 09/28/16 22:19 09/28/16 23:25 09/29/16 00:54 09/29/16 00:58 Glucose (Fingerstick) 544mg/dL (70-99) 434mg/dL (70-99) 322mg/dL (70-99) White Blood Count 22.8x10^3/uL (4.0-11.0) Red Blood Count 4.59x10^6/uL (3.50-5.40) Hemoglobin 12.8g/dL (12.0-15.5) Hematocrit 39.6% (36.0-47.0) Mean Corpuscular Volume 86fL (79-100) Mean Corpuscular Hemoglobin 28pg (25-35) Mean Corpuscular Hemoglobin Concent 32g/dL (31-37) Red Cell Distribution Width 14.8% (11.5-14.5) Platelet Count 335x10^3/uL (140-400) Neutrophils (%) (Auto) 88% (31-73) Lymphocytes (%) (Auto) 5% (24-48) Monocytes (%) (Auto) 7% (0-9) Eosinophils (%) (Auto) 0% (0-3) Basophils (%) (Auto) 0% (0-3) Neutrophils # (Auto) 20.1x10^3uL (1.8-7.7) Lymphocytes # (Auto) 1.1x10^3/uL (1.0-4.8) Monocytes # (Auto) 1.6x10^3/uL (0.0-1.1) Eosinophils # (Auto) 0.0x10^3/uL (0.0-0.7) Basophils # (Auto) 0.1x10^3/uL (0.0-0.2) Sodium Level 147mmol/L (136-145) Potassium Level 4.1mmol/L (3.5-5.1) Chloride Level 103mmol/L (98-107) Carbon Dioxide Level 21mmol/L (21-32) Anion Gap 23 (6-14) Blood Urea Nitrogen 67mg/dL (7-20) Creatinine 2.1mg/dL (0.6-1.0) Estimated GFR (Cockcroft-Gault) 24.9 Glucose Level 346mg/dL (70-99) Calcium Level 9.3mg/dL (8.5-10.1) Phosphorus Level 2.9mg/dL (2.6-4.7) Magnesium Level 2.8mg/dL (1.8-2.4) Test 09/29/16 01:10 09/29/16 02:19 09/29/16 03:50 09/29/16 05:04 Lactic Acid Level 2.7mmol/L (0.4-2.0) Glucose (Fingerstick) 245mg/dL (70-99) 183mg/dL (70-99) 143mg/dL (70-99) Test 09/29/16 06:52 09/29/16 06:57 09/29/16 08:09 09/29/16 09:23 Glucose (Fingerstick) 51mg/dL (70-99) 43mg/dL (70-99) 165mg/dL (70-99) 237mg/dL (70-99) Test 09/29/16 10:26 09/29/16 11:25 09/29/16 11:55 09/29/16 12:26 Glucose (Fingerstick) 182mg/dL (70-99) 153mg/dL (70-99) 117mg/dL (70-99) Sodium Level 146mmol/L (136-145) Potassium Level 4.0mmol/L (3.5-5.1) Chloride Level 110mmol/L (98-107) Carbon Dioxide Level 25mmol/L (21-32) Anion Gap 11 (6-14) Blood Urea Nitrogen 48mg/dL (7-20) Creatinine 1.5mg/dL (0.6-1.0) Estimated GFR (Cockcroft-Gault) 36.8 Glucose Level 145mg/dL (70-99) Calcium Level 8.6mg/dL (8.5-10.1) Medications Current Medications Sodium Chloride 1,000 ml @ 1,000 mls/hr Q1H IV Last administered on 09/28/16 18:27; Start 09/28/16 at 18:03; Stop 09/28/16 at 20:02; Status DC Insulin Human Regular (Novolin R Iv Drip) 150 ml @ 0 mls/hr 1X ONCE IV Last administered on 09/28/16 18:58; Start 09/28/16 at 18:15; Stop 09/28/16 at 18:16; Status DC Ondansetron HCl (Zofran) 4 mg 1X ONCE IV Last administered on 09/28/16 18:20; Start 09/28/16 at 18:30; Stop 09/28/16 at 18:31; Status DC Ondansetron HCl (Zofran) 4 mg PRN Q8HRS PRN IV NAUSEA/VOMITING Last administered on 09/29/16 05:59; Start 09/28/16 at 19:30; Stop 09/29/16 at 19:29 Fentanyl Citrate (Fentanyl 2ml Vial) 50 mcg PRN Q2HR PRN IV PAIN Last administered on 09/29/16 06:00; Start 09/28/16 at 19:30; Stop 09/29/16 at 19:29 Acetaminophen 650 mg 650 mg PRN Q4HRS PRN PO FEVER; Start 09/28/16 at 19:30; Stop 09/29/16 at 19:29 Potassium Chloride 100 ml @ 100 mls/hr PRN Q1HR PRN IV SEE COMMENTS; Start 09/28/16 at 19:30; Stop 09/28/16 at 22:56; Status DC Potassium Chloride 100 ml @ 100 mls/hr PRN Q1HR PRN IV SEE COMMENTS; Start 09/28/16 at 19:30; Stop 09/28/16 at 22:56; Status DC Potassium Chloride 100 ml @ 100 mls/hr PRN Q1HR PRN IV SEE COMMENTS; Start 09/28/16 at 19:30; Stop 09/28/16 at 22:56; Status DC Sodium Chloride 1,000 ml @ 250 mls/hr Q4H IV Last administered on 09/29/16 08: 18; Start 09/28/16 at 20:14; Stop 09/29/16 at 11:05; Status DC Sodium Chloride 1,000 ml @ 500 mls/hr Q2H IV Last administered on 09/29/16 01: 00; Start 09/28/16 at 23:00; Stop 09/29/16 at 09:09; Status DC Sodium Chloride 1,000 ml @ 250 mls/hr Q4H IV Last administered on 09/29/16 08: 17; Start 09/28/16 at 23:00; Stop 09/29/16 at 11:05; Status DC Dextrose/Sodium Chloride 1,000 ml @ 250 mls/hr Q4H IV Last administered on 09/29 11:36; Start 09/28/16 at 23:00 Insulin Human Regular 150 unit/ Sodium Chloride 151.5 ml @ 0 mls/hr CONT PRN PRN IV PER PROTOCOL Last administered on 09/29/16 06:04; Start 09/28/16 at 23:00 Potassium Chloride 100 ml @ 100 mls/hr PRN Q1HR PRN IV SEE COMMENTS; Start 09/28/16 at 22:30 Potassium Chloride 100 ml @ 100 mls/hr PRN Q1HR PRN IV SEE COMMENTS; Start 09/28/16 at 22:30 Magnesium Sulfate/ Dextrose 100 ml @ 25 mls/hr DAILY IV ; Start 09/29/16 at 09: 00; Stop 09/29/16 at 09:00; Status DC Sodium Bicarbonate 50 meq/Sodium Chloride 1,050 ml @ 500 mls/hr Q2H6M PRN IV SEE COMMENTS; Start 09/28/16 at 23:15; Status Cancel Sodium Phosphate 40 mmol/Sodium Chloride 513.3333 ml @ 83.3 mls/hr 1X PRN PRN IV SEE COMMENTS; Start 09/28/16 at 22:30 Sodium Phosphate 20 mmol/Dextrose 256.6667 ml @ 62.5 mls/hr 1X PRN PRN IV SEE COMMENTS; Start 09/28/16 at 22:30 Sodium Phosphate/ Dextrose 253.3333 ml @ 62.5 mls/hr 1X PRN PRN IV SEE COMMENTS ; Start 09/28/16 at 22:30 Pantoprazole Sodium 40 mg 40 mg DAILYAC IVP Last administered on 09/29/16 09:07 ; Start 09/29/16 at 07:30 Sodium Bicarbonate/ Sodium Chloride (Iv Sodium Chloride 0.45%) 1,050 ml @ 500 mls/hr CONT PRN IV SEE DKA PROTOCOL; Start 09/29/16 at 03:30 Dextrose 25 gm 25 gm STK-MED ONCE IV ; Start 09/29/16 at 06:53; Stop 09/29/16 at 06:54; Status DC Dextrose/Sodium Chloride (Iv D5% - 1/2 NS) 1,000 ml @ 75 mls/hr 1X PRN PRN IV SEE COMMENTS; Start 09/29/16 at 07:15 Dextrose 25 gm 1X ONCE IV Last administered on 09/29/16 08:16; Start 09/29/16 at 07:45; Stop 09/29/16 at 07:46; Status DC Insulin Aspart (Novolog) 0-9 UNITS TIDWMEALS SQ ; Start 09/29/16 at 17:00 Dextrose 12.5 gm PRN Q15MIN PRN IV SEE COMMENTS; Start 09/29/16 at 12:45 Active Scripts Active Levemir Flextouch (Insulin Detemir) 100 Unit/1 Ml Insuln.pen 15 Units SQ BID Cipro (Ciprofloxacin Hcl) 250 Mg Tablet 750 Mg PO BID 9 Days Reported Ibuprofen 800 Mg Tablet 800 Mg PO PRN Q6HRS PRN Humalog (Insulin Lispro) 100 Unit/1 Ml Cartridge 100 Unit SQ Vitals/I & O Vital Sign - Last 24 Hours 09/28/16 09/28/16 09/28/16 09/28/16 17:00 18:00 18:00 18:45 Temp 97.7 97.7 Pulse 116 118 122 118 Resp 22 25 33 25 B/P 135/63 122/58 121/58 127/59 Pulse Ox 100 94 100 100 O2 Delivery Room Air Room Air Room Air Room Air 09/28/16 09/28/16 09/28/16 09/28/16 19:00 19:02 19:32 20:02 Pulse 118 124 128 Resp 21 25 B/P 138/58 132/39 155/62 145/56 Pulse Ox 100 100 O2 Delivery Room Air Room Air 09/28/16 09/28/16 09/28/16 09/28/16 20:32 21:02 22:00 23:00 Temp 98.0 98.0 Pulse 128 126 124 122 Resp 24 20 19 17 B/P 136/49 119/46 135/61 120/50 Pulse Ox 100 100 100 98 O2 Delivery Room Air Room Air 09/29/16 09/29/16 09/29/16 09/29/16 00:00 01:00 02:00 03:00 Temp 98.4 98.4 Pulse 118 120 118 118 Resp 15 15 8 14 B/P 136/58 129/53 159/67 Pulse Ox 99 100 100 100 09/29/16 09/29/16 09/29/16 09/29/16 04:00 05:00 06:00 06:00 Temp 98.0 98.0 Pulse 120 118 118 Resp 9 25 16 B/P 164/58 153/63 159/62 Pulse Ox 99 100 O2 Delivery Room Air Room Air 09/29/16 09/29/16 09/29/16 09/29/16 07:00 08:00 08:32 09:10 Pulse 118 114 114 Resp 16 22 15 B/P 98/37 185/78 141/68 Pulse Ox 90 98 O2 Delivery Room Air Room Air Room Air Room Air 09/29/16 09/29/16 09/29/16 09/29/16 10:05 11:02 11:47 12:00 Pulse 119 123 100 Resp 12 18 20 B/P 140/80 165/68 174/69 Pulse Ox 97 98 98 O2 Delivery Room Air Room Air Room Air Room Air Intake and Output 09/28/16 09/28/16 09/29/16 15:00 23:00 07:00 Intake Total 2000 ml Balance 2000 ml MARTITA OROZCO MD Sep 29, 2016 13:42
[2016-09-29] MEDS: INSULIN ASPART 300 UNITS/3 ML INSULN.PEN SQ SCH ×2 (17:30→21:22)
[2016-09-29] MEDS ORDERED: MORPHINE SULFATE 4 MG/ML DISP.SYRIN. IV PRN (18:00)
[2016-09-29] MEDS ORDERED: GUAIFENESIN 200 MG/10 ML LIQUID. PO PRN (18:00)
--- NOTE | 2016-09-29 18:34 | EKG ---
[facility] [address] [place] [address] Test Date: 2016-09-29 Test Time: 18:29:13 Pat Name: ANDREIA DUARTE Department: Room: 563 1 Gender: F Nurse Administrator: : [id number] Requested By: DEWEY LEMON Order Number: [id number] Reading MD: Jessica Mathur Measurements Intervals [place] Rate: 124 P: 55 ND: 108 QRS: 61 QRSD: 82 T: 14 QT: 288 QTc: 417 Interpretive Statements SINUS TACHYCARDIA ) LEFT ATRIAL ABNORMALITY ABNORMAL ECG Electronically Signed On 10-03-2016 23:04:51 FISCAL AGENT by Jessica Mathur
[2016-09-29 19:38] LABS: CKMB INDEX 5.7 % (0-4); CKMB MASS 3.7 ng/mL (0.0-3.6)
[2016-09-29] MEDS: MORPHINE SULFATE 2 MG/ML DISP.SYRIN. IV PRN (21:52)
[2016-09-29] MEDS ORDERED: INSULIN ASPART 300 UNITS/3 ML INSULN.PEN SQ ONE (22:00)
[2016-09-29 22:24] LABS: CREATININE 1.6 mg/dL (0.6-1.0); GFR 34.1; POTASSIUM 4.4 mmol/L (3.5-5.1)
[2016-09-30] MEDS: MORPHINE SULFATE 2 MG/ML DISP.SYRIN. IV PRN ×3 (01:02→23:48)
[2016-09-30] MEDS: INSULIN ASPART 300 UNITS/3 ML INSULN.PEN SQ SCH ×4 (01:13→21:37)
[2016-09-30 03:05] VITALS: BP 161/102
[2016-09-30 07:25] VITALS: BP 145/73
[2016-09-30] MEDS: PANTOPRAZOLE IV PUSH 40 MG VIAL. IVP SCH (08:42)
[2016-09-30] MEDS ORDERED: INSULIN ASPART 300 UNITS/3 ML INSULN.PEN SQ ONE (08:45)
[2016-09-30 08:47] LABS: BASO # 0.1 x10^3/uL (0.0-0.2); BASO % 1 % (0-3); EOS % 0 % (0-3); HEMATOCRIT 37.1 % (36.0-47.0); HEMOGLOBIN 11.6 g/dL (12.0-15.5); LYMPH # 1.5 x10^3/uL (1.0-4.8); LYMPH % 10 % (24-48); MEAN CORPUSCULAR HEMOGLOBIN 28 pg (25-35); MEAN CORPUSCULAR HGB CONC 31 g/dL (31-37); MEAN CORPUSCULAR VOLUME 88 fL (79-100); MONO % 8 % (0-9); NEUT % 82 % (31-73); PLATELET COUNT 267 x10^3/uL (140-400); RED BLOOD COUNT 4.21 x10^6/uL (3.50-5.40); RED CELL DISTRIBUTION WIDTH 15.3 % (11.5-14.5); WHITE BLOOD COUNT 14.4 x10^3/uL (4.0-11.0)
[2016-09-30 09:04] LABS: ALBUMIN 3.2 g/dL (3.4-5.0); ALBUMIN/GLOBULIN RATIO 0.8 (1.0-1.7); CALCIUM 9.1 mg/dL (8.5-10.1); CREATININE 1.3 mg/dL (0.6-1.0); GFR 43.4; POTASSIUM 4.1 mmol/L (3.5-5.1); TOTAL BILIRUBIN 0.6 mg/dL (0.2-1.0)
[2016-09-30] MEDS: IV 1/2 NORMAL SALINE 1,000 ML IV SCH ×2 (09:30→17:27)
[2016-09-30 11:59] VITALS: BP 174/93
[2016-09-30] MEDS: IPRATRPIUM/ALBUTEROL 0.5/2.5MG 3 ML NEBU. NEB SCH ×3 (12:00→20:00)
--- NOTE | 2016-09-30 12:38 | PDOC ---
PROGRESS NOTES Chief Complaint Chief Complaint DKA AMS ASSESSMENT AND PLAN: 1. DKA 2. AMS with 1, metabolic encephalopathy 3. leukocytosis , SIRS wo infection 4. anxiety 5. recent sepsis with UTI, bateremia 6. bronchitis, likely viral infection plan: 1. 1/2 NS 125cc/h 2. clear liquid diet 3. levemir 10u bid 4 SSI 5. hba1c 10 dvt ppx gi ppx History of Present Illness History of Present Illness dry cough coarse voice N/V yesterday, better today very weak hyperglycemia overnight Vitals Vitals Vital Signs Date Time Temp Pulse Resp B/P Pulse Ox O2 Delivery O2 Flow Rate FiO2 09/30/16 11:59 98.7 109 16 174/93 98 Room Air 98.7 Physical Exam General: No acute distress, Other (obtunded, following simple commands, nonverbal) Heart: Regular rate Lungs: Clear Abdomen: Normal bowel sounds, No tenderness Extremities: No clubbing, No edema Skin: No rashes Labs LABS Laboratory Tests Test 09/29/16 16:31 09/29/16 18:25 09/29/16 20:17 09/29/16 21:06 Glucose (Fingerstick) 322mg/dL (70-99) 345mg/dL (70-99) 401mg/dL (70-99) Creatine Kinase 65U/L (26-192) Creatine Kinase MB (Mass) 3.7ng/mL (0.0-3.6) Creatine Kinase MB Relative Index 5.7% (0-4) Troponin I Quantitative 0.204ng/mL (0.000-0.055) Test 09/29/16 22:02 09/29/16 22:26 09/30/16 08:20 Sodium Level 145mmol/L (136-145) 143mmol/L (136-145) Potassium Level 4.4mmol/L (3.5-5.1) 4.1mmol/L (3.5-5.1) Chloride Level 104mmol/L (98-107) 103mmol/L (98-107) Carbon Dioxide Level 16mmol/L (21-32) 21mmol/L (21-32) Anion Gap 25 (6-14) 19 (6-14) Blood Urea Nitrogen 37mg/dL (7-20) 25mg/dL (7-20) Creatinine 1.6mg/dL (0.6-1.0) 1.3mg/dL (0.6-1.0) Estimated GFR (Cockcroft-Gault) 34.1 43.4 Glucose Level 495mg/dL (70-99) 369mg/dL (70-99) Calcium Level 9.0mg/dL (8.5-10.1) 9.1mg/dL (8.5-10.1) Glucose (Fingerstick) 366mg/dL (70-99) White Blood Count 14.4x10^3/uL (4.0-11.0) Red Blood Count 4.21x10^6/uL (3.50-5.40) Hemoglobin 11.6g/dL (12.0-15.5) Hematocrit 37.1% (36.0-47.0) Mean Corpuscular Volume 88fL (79-100) Mean Corpuscular Hemoglobin 28pg (25-35) Mean Corpuscular Hemoglobin Concent 31g/dL (31-37) Red Cell Distribution Width 15.3% (11.5-14.5) Platelet Count 267x10^3/uL (140-400) Neutrophils (%) (Auto) 82% (31-73) Lymphocytes (%) (Auto) 10% (24-48) Monocytes (%) (Auto) 8% (0-9) Eosinophils (%) (Auto) 0% (0-3) Basophils (%) (Auto) 1% (0-3) Neutrophils # (Auto) 11.7x10^3uL (1.8-7.7) Lymphocytes # (Auto) 1.5x10^3/uL (1.0-4.8) Monocytes # (Auto) 1.1x10^3/uL (0.0-1.1) Eosinophils # (Auto) 0.0x10^3/uL (0.0-0.7) Basophils # (Auto) 0.1x10^3/uL (0.0-0.2) BUN/Creatinine Ratio 19 (6-20) Total Bilirubin 0.6mg/dL (0.2-1.0) Aspartate Amino Transf (AST/SGOT) 19U/L (15-37) Alanine Aminotransferase (ALT/SGPT) 15U/L (14-59) Alkaline Phosphatase 121U/L (46-116) Total Protein 7.0g/dL (6.4-8.2) Albumin 3.2g/dL (3.4-5.0) Albumin/Globulin Ratio 0.8 (1.0-1.7) Review of Systems Review of Systems No fever, chills, sob or chest pain Assessment and Plan Assessmemt and Plan Problems Medical Problems: (1) Acute renal failure Status: Acute (2) Diabetic ketoacidosis Status: Acute Problems: Comment Review of Relevant I have reviewed the following items edna (where applicable) has been applied. Labs Laboratory Tests Test 09/28/16 17:44 09/28/16 19:19 09/28/16 19:21 09/28/16 20:22 White Blood Count 28.2x10^3/uL (4.0-11.0) Red Blood Count 4.51x10^6/uL (3.50-5.40) Hemoglobin 12.4g/dL (12.0-15.5) Hematocrit 40.4% (36.0-47.0) Mean Corpuscular Volume 90fL (79-100) Mean Corpuscular Hemoglobin 27pg (25-35) Mean Corpuscular Hemoglobin Concent 31g/dL (31-37) Red Cell Distribution Width 15.0% (11.5-14.5) Platelet Count 379x10^3/uL (140-400) Neutrophils (%) (Auto) 92% (31-73) Lymphocytes (%) (Auto) 3% (24-48) Monocytes (%) (Auto) 5% (0-9) Eosinophils (%) (Auto) 0% (0-3) Basophils (%) (Auto) 0% (0-3) Neutrophils # (Auto) 25.8x10^3uL (1.8-7.7) Lymphocytes # (Auto) 0.9x10^3/uL (1.0-4.8) Monocytes # (Auto) 1.3x10^3/uL (0.0-1.1) Eosinophils # (Auto) 0.0x10^3/uL (0.0-0.7) Basophils # (Auto) 0.1x10^3/uL (0.0-0.2) Segmented Neutrophils % 93% (35-66) Band Neutrophils % 2% (0-9) Lymphocytes % 4% (24-48) Monocytes % 1% (0-10) Toxic Granulation Mod Toxic Vacuolation Mod Platelet Estimate Decreased (ADEQUATE) Sodium Level 134mmol/L (136-145) Potassium Level 5.6mmol/L (3.5-5.1) Chloride Level 85mmol/L (98-107) Carbon Dioxide Level 9mmol/L (21-32) Anion Gap 40 (6-14) Blood Urea Nitrogen 78mg/dL (7-20) Creatinine 2.7mg/dL (0.6-1.0) Estimated GFR (Cockcroft-Gault) 18.7 BUN/Creatinine Ratio 29 (6-20) Glucose Level 983mg/dL (70-99) 796mg/dL (70-99) Hemoglobin A1c 10.3% (4.8-5.6) Serum Osmolality 382mOsm/Kg (279-304) Calcium Level 9.8mg/dL (8.5-10.1) Total Bilirubin 0.8mg/dL (0.2-1.0) 0.7mg/dL (0.2-1.0) Aspartate Amino Transf (AST/SGOT) 15U/L (15-37) 11U/L (15-37) Alanine Aminotransferase (ALT/SGPT) 16U/L (14-59) 16U/L (14-59) Alkaline Phosphatase 138U/L (46-116) 145U/L (46-116) Total Protein 8.0g/dL (6.4-8.2) 8.2g/dL (6.4-8.2) Albumin 4.0g/dL (3.4-5.0) 3.7g/dL (3.4-5.0) Albumin/Globulin Ratio 1.0 (1.0-1.7) Magnesium Level 3.1mg/dL (1.8-2.4) Urine Collection Type U cath Urine Color Yellow Urine Clarity Clear Urine pH 5.0 Urine Specific [place] 1.020 Urine Protein Negativemg/dL (NEG-TRACE) Urine Glucose (UA) >=1000mg/dL (NEG) Urine Ketones (Stick) >=80mg/dL (NEG) Urine Blood Negative (NEG) Urine Nitrite Negative (NEG) Urine Bilirubin Negative (NEG) Urine Urobilinogen Dipstick 0.2mg/dL (0.2 mg/dL) Urine Leukocyte Esterase Negative (NEG) Urine RBC 0/HPF (0-2) Urine WBC Rare/HPF (0-4) Urine Squamous Epithelial Cells Few/LPF Urine Transitional Epithelial Cells Occ/LPF Urine Bacteria 0/HPF (0-FEW) Urine Mucus Slight/LPF Urine Test Negative (NEG) Urine Opiates Screen Neg (NEG) Urine Methadone Screen Neg (NEG) Urine Barbiturates Neg (NEG) Urine Phencyclidine Screen Neg (NEG) Urine Amphetamine/Methamphetamine Neg (NEG) Urine Benzodiazepines Screen Neg (NEG) Urine Cocaine Screen Neg (NEG) Urine Cannabinoids Screen Neg (NEG) Urine Ethyl Alcohol Neg (NEG) Phosphorus Level 8.0mg/dL (2.6-4.7) Direct Bilirubin 0.1mg/dL (0.0-0.2) Lipase 432U/L (73-393) Ethyl Alcohol Level < 10mg/dL (0-10) Test 09/28/16 22:19 09/28/16 23:25 09/29/16 00:54 09/29/16 00:58 Glucose (Fingerstick) 544mg/dL (70-99) 434mg/dL (70-99) 322mg/dL (70-99) White Blood Count 22.8x10^3/uL (4.0-11.0) Red Blood Count 4.59x10^6/uL (3.50-5.40) Hemoglobin 12.8g/dL (12.0-15.5) Hematocrit 39.6% (36.0-47.0) Mean Corpuscular Volume 86fL (79-100) Mean Corpuscular Hemoglobin 28pg (25-35) Mean Corpuscular Hemoglobin Concent 32g/dL (31-37) Red Cell Distribution Width 14.8% (11.5-14.5) Platelet Count 335x10^3/uL (140-400) Neutrophils (%) (Auto) 88% (31-73) Lymphocytes (%) (Auto) 5% (24-48) Monocytes (%) (Auto) 7% (0-9) Eosinophils (%) (Auto) 0% (0-3) Basophils (%) (Auto) 0% (0-3) Neutrophils # (Auto) 20.1x10^3uL (1.8-7.7) Lymphocytes # (Auto) 1.1x10^3/uL (1.0-4.8) Monocytes # (Auto) 1.6x10^3/uL (0.0-1.1) Eosinophils # (Auto) 0.0x10^3/uL (0.0-0.7) Basophils # (Auto) 0.1x10^3/uL (0.0-0.2) Sodium Level 147mmol/L (136-145) Potassium Level 4.1mmol/L (3.5-5.1) Chloride Level 103mmol/L (98-107) Carbon Dioxide Level 21mmol/L (21-32) Anion Gap 23 (6-14) Blood Urea Nitrogen 67mg/dL (7-20) Creatinine 2.1mg/dL (0.6-1.0) Estimated GFR (Cockcroft-Gault) 24.9 Glucose Level 346mg/dL (70-99) Calcium Level 9.3mg/dL (8.5-10.1) Phosphorus Level 2.9mg/dL (2.6-4.7) Magnesium Level 2.8mg/dL (1.8-2.4) Test 09/29/16 01:10 09/29/16 02:19 09/29/16 03:35 09/29/16 03:50 Lactic Acid Level 2.7mmol/L (0.4-2.0) Glucose (Fingerstick) 245mg/dL (70-99) 183mg/dL (70-99) Nasal Screen MRSA (PCR) Negative (Negative) Test 09/29/16 05:04 09/29/16 06:52 09/29/16 06:57 09/29/16 08:09 Glucose (Fingerstick) 143mg/dL (70-99) 51mg/dL (70-99) 43mg/dL (70-99) 165mg/dL (70-99) Test 09/29/16 09:23 09/29/16 10:26 09/29/16 11:25 09/29/16 11:55 Glucose (Fingerstick) 237mg/dL (70-99) 182mg/dL (70-99) 153mg/dL (70-99) Sodium Level 146mmol/L (136-145) Potassium Level 4.0mmol/L (3.5-5.1) Chloride Level 110mmol/L (98-107) Carbon Dioxide Level 25mmol/L (21-32) Anion Gap 11 (6-14) Blood Urea Nitrogen 48mg/dL (7-20) Creatinine 1.5mg/dL (0.6-1.0) Estimated GFR (Cockcroft-Gault) 36.8 Glucose Level 145mg/dL (70-99) Calcium Level 8.6mg/dL (8.5-10.1) Test 09/29/16 12:26 09/29/16 16:31 09/29/16 18:25 09/29/16 20:17 Glucose (Fingerstick) 117mg/dL (70-99) 322mg/dL (70-99) 345mg/dL (70-99) Creatine Kinase 65U/L (26-192) Creatine Kinase MB (Mass) 3.7ng/mL (0.0-3.6) Creatine Kinase MB Relative Index 5.7% (0-4) Troponin I Quantitative 0.204ng/mL (0.000-0.055) Test 09/29/16 21:06 09/29/16 22:02 09/29/16 22:26 09/30/16 08:20 Glucose (Fingerstick) 401mg/dL (70-99) 366mg/dL (70-99) Sodium Level 145mmol/L (136-145) 143mmol/L (136-145) Potassium Level 4.4mmol/L (3.5-5.1) 4.1mmol/L (3.5-5.1) Chloride Level 104mmol/L (98-107) 103mmol/L (98-107) Carbon Dioxide Level 16mmol/L (21-32) 21mmol/L (21-32) Anion Gap 25 (6-14) 19 (6-14) Blood Urea Nitrogen 37mg/dL (7-20) 25mg/dL (7-20) Creatinine 1.6mg/dL (0.6-1.0) 1.3mg/dL (0.6-1.0) Estimated GFR (Cockcroft-Gault) 34.1 43.4 Glucose Level 495mg/dL (70-99) 369mg/dL (70-99) Calcium Level 9.0mg/dL (8.5-10.1) 9.1mg/dL (8.5-10.1) White Blood Count 14.4x10^3/uL (4.0-11.0) Red Blood Count 4.21x10^6/uL (3.50-5.40) Hemoglobin 11.6g/dL (12.0-15.5) Hematocrit 37.1% (36.0-47.0) Mean Corpuscular Volume 88fL (79-100) Mean Corpuscular Hemoglobin 28pg (25-35) Mean Corpuscular Hemoglobin Concent 31g/dL (31-37) Red Cell Distribution Width 15.3% (11.5-14.5) Platelet Count 267x10^3/uL (140-400) Neutrophils (%) (Auto) 82% (31-73) Lymphocytes (%) (Auto) 10% (24-48) Monocytes (%) (Auto) 8% (0-9) Eosinophils (%) (Auto) 0% (0-3) Basophils (%) (Auto) 1% (0-3) Neutrophils # (Auto) 11.7x10^3uL (1.8-7.7) Lymphocytes # (Auto) 1.5x10^3/uL (1.0-4.8) Monocytes # (Auto) 1.1x10^3/uL (0.0-1.1) Eosinophils # (Auto) 0.0x10^3/uL (0.0-0.7) Basophils # (Auto) 0.1x10^3/uL (0.0-0.2) BUN/Creatinine Ratio 19 (6-20) Total Bilirubin 0.6mg/dL (0.2-1.0) Aspartate Amino Transf (AST/SGOT) 19U/L (15-37) Alanine Aminotransferase (ALT/SGPT) 15U/L (14-59) Alkaline Phosphatase 121U/L (46-116) Total Protein 7.0g/dL (6.4-8.2) Albumin 3.2g/dL (3.4-5.0) Albumin/Globulin Ratio 0.8 (1.0-1.7) Laboratory Tests Test 09/29/16 16:31 09/29/16 18:25 09/29/16 20:17 09/29/16 21:06 Glucose (Fingerstick) 322mg/dL (70-99) 345mg/dL (70-99) 401mg/dL (70-99) Creatine Kinase 65U/L (26-192) Creatine Kinase MB (Mass) 3.7ng/mL (0.0-3.6) Creatine Kinase MB Relative Index 5.7% (0-4) Troponin I Quantitative 0.204ng/mL (0.000-0.055) Test 09/29/16 22:02 09/29/16 22:26 09/30/16 08:20 Sodium Level 145mmol/L (136-145) 143mmol/L (136-145) Potassium Level 4.4mmol/L (3.5-5.1) 4.1mmol/L (3.5-5.1) Chloride Level 104mmol/L (98-107) 103mmol/L (98-107) Carbon Dioxide Level 16mmol/L (21-32) 21mmol/L (21-32) Anion Gap 25 (6-14) 19 (6-14) Blood Urea Nitrogen 37mg/dL (7-20) 25mg/dL (7-20) Creatinine 1.6mg/dL (0.6-1.0) 1.3mg/dL (0.6-1.0) Estimated GFR (Cockcroft-Gault) 34.1 43.4 Glucose Level 495mg/dL (70-99) 369mg/dL (70-99) Calcium Level 9.0mg/dL (8.5-10.1) 9.1mg/dL (8.5-10.1) Glucose (Fingerstick) 366mg/dL (70-99) White Blood Count 14.4x10^3/uL (4.0-11.0) Red Blood Count 4.21x10^6/uL (3.50-5.40) Hemoglobin 11.6g/dL (12.0-15.5) Hematocrit 37.1% (36.0-47.0) Mean Corpuscular Volume 88fL (79-100) Mean Corpuscular Hemoglobin 28pg (25-35) Mean Corpuscular Hemoglobin Concent 31g/dL (31-37) Red Cell Distribution Width 15.3% (11.5-14.5) Platelet Count 267x10^3/uL (140-400) Neutrophils (%) (Auto) 82% (31-73) Lymphocytes (%) (Auto) 10% (24-48) Monocytes (%) (Auto) 8% (0-9) Eosinophils (%) (Auto) 0% (0-3) Basophils (%) (Auto) 1% (0-3) Neutrophils # (Auto) 11.7x10^3uL (1.8-7.7) Lymphocytes # (Auto) 1.5x10^3/uL (1.0-4.8) Monocytes # (Auto) 1.1x10^3/uL (0.0-1.1) Eosinophils # (Auto) 0.0x10^3/uL (0.0-0.7) Basophils # (Auto) 0.1x10^3/uL (0.0-0.2) BUN/Creatinine Ratio 19 (6-20) Total Bilirubin 0.6mg/dL (0.2-1.0) Aspartate Amino Transf (AST/SGOT) 19U/L (15-37) Alanine Aminotransferase (ALT/SGPT) 15U/L (14-59) Alkaline Phosphatase 121U/L (46-116) Total Protein 7.0g/dL (6.4-8.2) Albumin 3.2g/dL (3.4-5.0) Albumin/Globulin Ratio 0.8 (1.0-1.7) Microbiology 09/28/16 Blood Culture - Preliminary, Resulted NO GROWTH AFTER 1 DAY Medications Current Medications Sodium Chloride 1,000 ml @ 1,000 mls/hr Q1H IV Last administered on 09/28/16 18:27; Start 09/28/16 at 18:03; Stop 09/28/16 at 20:02; Status DC Insulin Human Regular (Novolin R Iv Drip) 150 ml @ 0 mls/hr 1X ONCE IV Last administered on 09/28/16 18:58; Start 09/28/16 at 18:15; Stop 09/29/16 at 13:40; Status DC Ondansetron HCl (Zofran) 4 mg 1X ONCE IV Last administered on 09/28/16 18:20; Start 09/28/16 at 18:30; Stop 09/28/16 at 18:31; Status DC Ondansetron HCl (Zofran) 4 mg PRN Q8HRS PRN IV NAUSEA/VOMITING Last administered on 09/29/16 05:59; Start 09/28/16 at 19:30; Stop 09/29/16 at 19:29; Status DC Fentanyl Citrate (Fentanyl 2ml Vial) 50 mcg PRN Q2HR PRN IV PAIN Last administered on 09/29/16 06:00; Start 09/28/16 at 19:30; Stop 09/29/16 at 13:40; Status DC Acetaminophen 650 mg 650 mg PRN Q4HRS PRN PO FEVER; Start 09/28/16 at 19:30; Stop 09/29/16 at 19:29; Status DC Potassium Chloride 100 ml @ 100 mls/hr PRN Q1HR PRN IV SEE COMMENTS; Start 09/28/16 at 19:30; Stop 09/28/16 at 22:56; Status DC Potassium Chloride 100 ml @ 100 mls/hr PRN Q1HR PRN IV SEE COMMENTS; Start 09/28/16 at 19:30; Stop 09/28/16 at 22:56; Status DC Potassium Chloride 100 ml @ 100 mls/hr PRN Q1HR PRN IV SEE COMMENTS; Start 09/28/16 at 19:30; Stop 09/28/16 at 22:56; Status DC Sodium Chloride 1,000 ml @ 250 mls/hr Q4H IV Last administered on 09/29/16 08: 18; Start 09/28/16 at 20:14; Stop 09/29/16 at 11:05; Status DC Sodium Chloride 1,000 ml @ 500 mls/hr Q2H IV Last administered on 09/29/16 01: 00; Start 09/28/16 at 23:00; Stop 09/29/16 at 09:09; Status DC Sodium Chloride 1,000 ml @ 250 mls/hr Q4H IV Last administered on 09/29/16 08: 17; Start 09/28/16 at 23:00; Stop 09/29/16 at 11:05; Status DC Dextrose/Sodium Chloride 1,000 ml @ 250 mls/hr Q4H IV Last administered on 09/29 11:36; Start 09/28/16 at 23:00; Stop 09/29/16 at 13:40; Status DC Insulin Human Regular 150 unit/ Sodium Chloride 151.5 ml @ 0 mls/hr CONT PRN PRN IV PER PROTOCOL Last administered on 09/29/16 06:04; Start 09/28/16 at 23:00 Potassium Chloride 100 ml @ 100 mls/hr PRN Q1HR PRN IV SEE COMMENTS; Start 09/28/16 at 22:30 Potassium Chloride 100 ml @ 100 mls/hr PRN Q1HR PRN IV SEE COMMENTS; Start 09/28/16 at 22:30 Magnesium Sulfate/ Dextrose 100 ml @ 25 mls/hr DAILY IV ; Start 09/29/16 at 09: 00; Stop 09/29/16 at 09:00; Status DC Sodium Bicarbonate 50 meq/Sodium Chloride 1,050 ml @ 500 mls/hr Q2H6M PRN IV SEE COMMENTS; Start 09/28/16 at 23:15; Status Cancel Sodium Phosphate 40 mmol/Sodium Chloride 513.3333 ml @ 83.3 mls/hr 1X PRN PRN IV SEE COMMENTS; Start 09/28/16 at 22:30 Sodium Phosphate 20 mmol/Dextrose 256.6667 ml @ 62.5 mls/hr 1X PRN PRN IV SEE COMMENTS; Start 09/28/16 at 22:30 Sodium Phosphate/ Dextrose 253.3333 ml @ 62.5 mls/hr 1X PRN PRN IV SEE COMMENTS ; Start 09/28/16 at 22:30 Pantoprazole Sodium 40 mg 40 mg DAILYAC IVP Last administered on 09/30/16 08:42 ; Start 09/29/16 at 07:30 Sodium Bicarbonate/ Sodium Chloride (Iv Sodium Chloride 0.45%) 1,050 ml @ 500 mls/hr CONT PRN IV SEE DKA PROTOCOL; Start 09/29/16 at 03:30; Stop 09/29/16 at 13 :40; Status DC Dextrose 25 gm 25 gm STK-MED ONCE IV ; Start 09/29/16 at 06:53; Stop 09/29/16 at 06:54; Status DC Dextrose/Sodium Chloride (Iv D5% - 1/2 NS) 1,000 ml @ 75 mls/hr 1X PRN PRN IV SEE COMMENTS; Start 09/29/16 at 07:15; Stop 09/29/16 at 13:40; Status DC Dextrose 25 gm 1X ONCE IV Last administered on 09/29/16 08:16; Start 09/29/16 at 07:45; Stop 09/29/16 at 07:46; Status DC Insulin Aspart (Novolog) 0-9 UNITS TIDWMEALS SQ Last administered on 09/30/16 01:13; Start 09/29/16 at 17:00; Stop 09/30/16 at 09:30; Status DC Dextrose 12.5 gm 12.5 gm PRN Q15MIN PRN IV SEE COMMENTS; Start 09/29/16 at 12:45 Sodium Chloride (Iv Sodium Chloride 0.45%) 1,000 ml @ 75 mls/hr [id number] IV Last administered on 09/29/16 17:14; Start 09/29/16 at 13:45; Stop 09/30/16 at 09: 30; Status DC Acetaminophen/ Hydrocodone Bitart (Lortab 5/325) 1 tab PRN Q4HRS PRN PO PAIN; Start 09/29/16 at 18:00 Morphine Sulfate 2 mg PRN Q2HR PRN IV PAIN Last administered on 09/30/16 01:02 ; Start 09/29/16 at 18:00 Morphine Sulfate 4 mg PRN Q2HR PRN IV PAIN; Start 09/29/16 at 18:00 Guaifenesin (Robitussin) 200 mg PRN Q4HRS PRN PO COUGH; Start 09/29/16 at 18:00 Insulin Aspart (Novolog) 10 units 1X ONCE SQ Last administered on 09/29/16 22: 00; Start 09/29/16 at 22:00; Stop 09/29/16 at 22:01; Status DC Insulin Aspart (Novolog) 4 units 1X ONCE SQ Last administered on 09/30/16 08: 50; Start 09/30/16 at 08:45; Stop 09/30/16 at 08:47; Status DC Insulin Aspart 0-9 UNITS QIDACHS SQ ; Start 09/30/16 at 11:30 Sodium Chloride (Iv Sodium Chloride 0.45%) 1,000 ml @ 125 mls/hr Q8H IV ; Start 09/30/16 at 09:30 Insulin Detemir (Levemir) 10 units BID SQ ; Start 09/30/16 at 10:00 Albuterol/ Ipratropium (Duoneb) 3 ml RTQID NEB ; Start 09/30/16 at 12:00 Active Scripts Active Levemir Flextouch (Insulin Detemir) 100 Unit/1 Ml Insuln.pen 15 Units SQ BID Cipro (Ciprofloxacin Hcl) 250 Mg Tablet 750 Mg PO BID 9 Days Reported Ibuprofen 800 Mg Tablet 800 Mg PO PRN Q6HRS PRN Humalog (Insulin Lispro) 100 Unit/1 Ml Cartridge 100 Unit SQ Vitals/I & O Vital Sign - Last 24 Hours 09/29/16 09/29/16 09/29/16 09/29/16 14:12 19:00 21:00 21:52 Temp 98.8 98.8 Pulse 118 117 Resp 15 18 B/P 149/66 176/85 Pulse Ox 98 97 O2 Delivery Room Air Room Air Room Air Room Air 09/29/16 09/30/16 09/30/16 09/30/16 23:00 01:02 01:32 03:05 Temp 98.1 98.3 98.1 98.3 Pulse 124 111 Resp 20 18 B/P 148/75 161/102 Pulse Ox 100 100 O2 Delivery Room Air Room Air Room Air Room Air 09/30/16 09/30/16 09/30/16 07:25 11:21 11:59 Temp 98.8 98.7 98.8 98.7 Pulse 107 109 Resp 18 16 B/P 145/73 174/93 Pulse Ox 97 98 O2 Delivery Room Air Room Air Room Air Intake and Output 09/29/16 09/29/16 09/30/16 15:00 23:00 07:00 Intake Total 0 ml 50 ml Output Total 750 ml 300 ml 2250 ml Balance -750 ml -300 ml -2200 ml DEWEY LEMON MD Sep 30, 2016 12:38
[2016-09-30] MEDS ORDERED: ACETAMINOPHEN 325 MG TABLET. PO PRN (12:45)
[2016-09-30] MEDS: ENOXAPARIN 40 MG/0.4 ML DISP.SYRIN. SQ SCH (13:13)
[2016-09-30] MEDS: ONDANSETRON PF 4 MG/2 ML VIAL. IV PRN (13:14)
[2016-09-30] MEDS: INSULIN DETEMIR 300 UNITS/3 ML INSULN.PEN. SQ SCH ×2 (13:18→21:36)
[2016-09-30 15:44] VITALS: BP 184/98
[2016-09-30] MEDS ORDERED: INSULIN REGULAR 100 UNIT/ML 10ML VIAL. IV ONE (17:15)
[2016-09-30] MEDS: PROMETHAZINE 6.25 MG in IV NORMAL SALINE 50ML 50 ML IV PRN ×2 (17:20→23:46)
[2016-09-30 19:00] VITALS: BP 171/81
[2016-09-30] MEDS: hydrALAZINE 20 MG/ML VIAL. IVP PRN (21:29)
[2016-09-30 23:00] VITALS: BP 166/93
[2016-10-01] MEDS: IV 1/2 NORMAL SALINE 1,000 ML IV SCH ×3 (00:40→17:35)
[2016-10-01 03:00] VITALS: BP 172/103
[2016-10-01] MEDS: ONDANSETRON PF 4 MG/2 ML VIAL. IV PRN ×2 (05:19→20:57)
[2016-10-01] MEDS: MORPHINE SULFATE 2 MG/ML DISP.SYRIN. IV PRN (05:20)
[2016-10-01 06:32] LABS: BASO % 1 % (0-3); EOS % 0 % (0-3); HEMATOCRIT 39.5 % (36.0-47.0); HEMOGLOBIN 12.8 g/dL (12.0-15.5); LYMPH # 1.7 x10^3/uL (1.0-4.8); LYMPH % 24 % (24-48); MEAN CORPUSCULAR HEMOGLOBIN 28 pg (25-35); MEAN CORPUSCULAR HGB CONC 32 g/dL (31-37); MEAN CORPUSCULAR VOLUME 87 fL (79-100); MONO % 8 % (0-9); NEUT % 67 % (31-73); PLATELET COUNT 253 x10^3/uL (140-400); RED BLOOD COUNT 4.57 x10^6/uL (3.50-5.40); RED CELL DISTRIBUTION WIDTH 15.3 % (11.5-14.5)
[2016-10-01 06:42] LABS: CALCIUM 9.2 mg/dL (8.5-10.1); GFR 58.7; POTASSIUM 3.6 mmol/L (3.5-5.1)
[2016-10-01 07:00] VITALS: BP 185/95
[2016-10-01] MEDS: INSULIN ASPART 300 UNITS/3 ML INSULN.PEN SQ SCH ×4 (07:30→21:00)
[2016-10-01] MEDS ORDERED: PANTOPRAZOLE 40 MG TABLET. PO SCH (07:30)
[2016-10-01] MEDS: IPRATRPIUM/ALBUTEROL 0.5/2.5MG 3 ML NEBU. NEB SCH ×4 (07:36→19:51)
[2016-10-01] MEDS: hydrALAZINE 20 MG/ML VIAL. IVP PRN ×2 (08:19→20:58)
[2016-10-01] MEDS: PROMETHAZINE 6.25 MG in IV NORMAL SALINE 50ML 50 ML IV PRN (08:19)
[2016-10-01] MEDS: INSULIN DETEMIR 300 UNITS/3 ML INSULN.PEN. SQ SCH ×2 (08:26→21:14)
[2016-10-01 11:00] VITALS: BP 152/99
[2016-10-01] MEDS: METOCLOPRAMIDE HCL 10 MG/2 ML VIAL. IV PRN ×2 (11:46→17:35)
--- NOTE | 2016-10-01 12:09 | RAD ---
Indication:Nausea and vomiting Grayscale images of the abdomen were obtained. Comparison none. Liver:There is some increased attenuation of the ultrasound beam by the liver compatible with fatty infiltration. A focal mass lesion is not seen in the visualized liver Gallbladder:Normal. The common bile but diameter of approximately 3 mm is normal Spleen:Normal Pancreas:Poorly visualized and largely obscured by gas Kidneys:Normal Abdominal aorta and IVC:As visualized normal Ancillary findings:None Impression:Fatty infiltration of the liver. No acute finding seen
--- NOTE | 2016-10-01 13:26 | PDOC2 ---
GI CONSULT Reason For Consult: Nausea and vomiting HPI: HPI: 51 y/o female admitted through the ER 09/28/16 where she was evaluated for 2 days of n/v and abdominal pain w/ elevated blood sugars (home glucometer couldn't read). Initial glucose was 983; she was admitted in DKA. Other labs showed WBC 28.2 (now 7), A1c 10.3. Glucose has improved; she has also been hypoglycemic. Abd US was unrevealing except for fatty liver. Per discussion w / RN, she has continued to struggle w/ n/v/retching and has not been able to keep much down. Additionally, communication has been difficult; neurology has been consulted for mental status changes. The patient apparently told the RN this morning that her "throat felt like is was on fire." Regarding medications , she has IV promethazine and ondansetron ordered, along w/ PO PPI. She was just started on IV Reglan about an hour ago. Her mother has been here but the patient is seen alone in her room this afternoon. She nods to confirm she is still nauseated, opens her eyes when I say her name, but otherwise does not respond. PMH: PMH: per chart - DM, hypothyroidism, depression/anxiety, , cataract extraction Social History: ALCOHOL: none Drugs: None ROS: Basically unobtainable. GI: Per HPI VItals: Vitals: Vital Signs Date Time Temp Pulse Resp B/P Pulse Ox O2 Delivery O2 Flow Rate FiO2 10/01/16 11:00 98.9 102 20 152/99 96 Room Air 98.9 Labs: Labs: Laboratory Tests Test 09/30/16 16:42 09/30/16 20:08 10/01/16 06:20 10/01/16 07:28 Glucose (Fingerstick) 400mg/dL (70-99) 254mg/dL (70-99) 168mg/dL (70-99) White Blood Count 7.0x10^3/uL (4.0-11.0) Red Blood Count 4.57x10^6/uL (3.50-5.40) Hemoglobin 12.8g/dL (12.0-15.5) Hematocrit 39.5% (36.0-47.0) Mean Corpuscular Volume 87fL (79-100) Mean Corpuscular Hemoglobin 28pg (25-35) Mean Corpuscular Hemoglobin Concent 32g/dL (31-37) Red Cell Distribution Width 15.3% (11.5-14.5) Platelet Count 253x10^3/uL (140-400) Neutrophils (%) (Auto) 67% (31-73) Lymphocytes (%) (Auto) 24% (24-48) Monocytes (%) (Auto) 8% (0-9) Eosinophils (%) (Auto) 0% (0-3) Basophils (%) (Auto) 1% (0-3) Neutrophils # (Auto) 4.7x10^3uL (1.8-7.7) Lymphocytes # (Auto) 1.7x10^3/uL (1.0-4.8) Monocytes # (Auto) 0.6x10^3/uL (0.0-1.1) Eosinophils # (Auto) 0.0x10^3/uL (0.0-0.7) Basophils # (Auto) 0.0x10^3/uL (0.0-0.2) Sodium Level 141mmol/L (136-145) Potassium Level 3.6mmol/L (3.5-5.1) Chloride Level 102mmol/L (98-107) Carbon Dioxide Level 29mmol/L (21-32) Anion Gap 10 (6-14) Blood Urea Nitrogen 16mg/dL (7-20) Creatinine 1.0mg/dL (0.6-1.0) Estimated GFR (Cockcroft-Gault) 58.7 Glucose Level 166mg/dL (70-99) Calcium Level 9.2mg/dL (8.5-10.1) Test 10/01/16 11:15 Glucose (Fingerstick) 202mg/dL (70-99) Allergies: Coded Allergies: No Known Drug Allergies (Unverified , 07/01/16) Medications: Current Medications Medications (Trade) Dose Ordered Sig/Reji Route PRN Reason Start Time Stop Time Status Last Admin Dose Admin Pantoprazole Sodium (Protonix) 40 mg DAILYAC PO 10/01/16 07:30 10/01/16 08:18 Insulin Human Regular 10 unit 10 unit 1X ONCE IV 09/30/16 17:15 1/5/17 17:16 DC 09/30/16 17:30 Promethazine HCl/ Sodium Chloride (Phenergan/Iv Sodium Chloride 0.9% 50ml) 50.25 ml @ 150.75 mls/ hr PRN Q6HRS PRN IV NAUSEA/VOMITING 09/30/16 17:15 10/01/16 08:19 Hydralazine HCl (Apresoline) 10 mg PRN Q4HRS PRN IVP ELEVATED BP, SEE COMMENTS 09/30/16 21:00 10/01/16 08:19 Metoclopramide HCl (Reglan) 10 mg PRN Q6HRS PRN IV NAUSEA/VOMITING 10/01/16 09:30 10/01/16 11:46 Imaging: Imaging: Abd US 10/01/16 Impression:Fatty infiltration of the liver. No acute finding seen. CXR 09/28/15 IMPRESSION: No acute cardiopulmonary no mass is detected. CT A/P w/o contrast 08/01/16 FINDINGS Images through the lung bases demonstrate minimal dependent subsegmental atelectasis bilaterally. The unenhanced CT appearance of the liver, spleen, pancreas and adrenal glands are within normal limits. A 1 millimeter nonobstructing calculus is seen involving the lower pole of the left kidney. A 1 millimeter nonobstructing calculus is seen involving the mid pole lobe and the left kidney. The right kidney appears prominent and is poorly defined. Patchy areas of increased attenuation are seen within the fat surrounding the right kidney. There is no definite evidence of obstruction of the right collecting system. These findings could be seen with a pyelonephritis. Clinical correlation is recommended. No abscess is seen. Scattered atherosclerotic plaque formation is seen involving abdominal aorta. The abdominal aorta tapers normally. The gallbladder is slightly contracted. No free fluid or free air is seen within the abdomen. The bowel is difficult to evaluate without oral contrast material. There is noevidence of bowel obstruction. The appendix is partially visualized and is within normal limits. Images through the pelvis demonstrate the urinary bladder distended with urine. Calcifications are seen within the pelvis consistent with phleboliths. No adnexal mass is seen. No free fluid is noted. Minimal S-shaped curvature of the thoracolumbar spine is seen. A 1 centimeter hemangioma is seen involving the L4 vertebral body. IMPRESSION Increased density is seen within the fat surrounding the right kidney. This finding could reflect pyelonephritis. Clinical correlation is recommended. PE: GEN: NAD, laying in bed w/ emesis basin, tray of clear liquids closeby HEENT: Atraumatic LUNGS: CTAB anteriorly HEART: RRR ABD: NABS, S/ND/NT EXTREMITY: No edema SKIN: No rashes, no jaundice NEURO/PSYCH: nods head in response to 1 or 2 questions, briefly opens eyes when I say her name A/P: A/P: Nausea/vomiting in the setting of DKA -has been unable to take PO w/ IV promethazine and ondansetron, started IV Reglan this afternoon, also has PPO -admitting glucose 983, A1c 10.3 AMS -- Likely diabetic gastroparesis. Will review w/ Dr. Phipps. ?change to NPO Agree w/ IV Reglan QID. Will also change to IV PPI BID. AZIZA MARIE Oct 01, 2016 13:26
--- NOTE | 2016-10-01 13:32 | PDOC ---
PROGRESS NOTES Chief Complaint Chief Complaint DKA AMS ASSESSMENT AND PLAN: 1. DKA 2. AMS with 1, metabolic encephalopathy 3. leukocytosis , SIRS wo infection 4. anxiety 5. recent sepsis with UTI, bateremia 6. bronchitis, likely viral infection 7. intractable N/V, 2/2 gastroparesis possibly plan: 1. 1/2 NS 125cc/h 2. clear liquid diet 3. levemir 10u bid 4 SSI 5. hba1c 10 dvt ppx gi ppx GI consult, US abd done, add reglan Neuro consult History of Present Illness History of Present Illness dry cough coarse voice N/V yesterday, very [place] daily very weak hyperglycemia overnight Vitals Vitals Vital Signs Date Time Temp Pulse Resp B/P Pulse Ox O2 Delivery O2 Flow Rate FiO2 10/01/16 11:00 98.9 102 20 152/99 96 Room Air 98.9 Physical Exam General: Alert, Other (obtunded, following simple commands, nonverbal) Heart: Regular rate Lungs: Clear Abdomen: Normal bowel sounds, No tenderness Extremities: No clubbing, No edema Skin: No rashes Labs LABS Laboratory Tests Test 09/30/16 16:42 09/30/16 20:08 10/01/16 06:20 10/01/16 07:28 Glucose (Fingerstick) 400mg/dL (70-99) 254mg/dL (70-99) 168mg/dL (70-99) White Blood Count 7.0x10^3/uL (4.0-11.0) Red Blood Count 4.57x10^6/uL (3.50-5.40) Hemoglobin 12.8g/dL (12.0-15.5) Hematocrit 39.5% (36.0-47.0) Mean Corpuscular Volume 87fL (79-100) Mean Corpuscular Hemoglobin 28pg (25-35) Mean Corpuscular Hemoglobin Concent 32g/dL (31-37) Red Cell Distribution Width 15.3% (11.5-14.5) Platelet Count 253x10^3/uL (140-400) Neutrophils (%) (Auto) 67% (31-73) Lymphocytes (%) (Auto) 24% (24-48) Monocytes (%) (Auto) 8% (0-9) Eosinophils (%) (Auto) 0% (0-3) Basophils (%) (Auto) 1% (0-3) Neutrophils # (Auto) 4.7x10^3uL (1.8-7.7) Lymphocytes # (Auto) 1.7x10^3/uL (1.0-4.8) Monocytes # (Auto) 0.6x10^3/uL (0.0-1.1) Eosinophils # (Auto) 0.0x10^3/uL (0.0-0.7) Basophils # (Auto) 0.0x10^3/uL (0.0-0.2) Sodium Level 141mmol/L (136-145) Potassium Level 3.6mmol/L (3.5-5.1) Chloride Level 102mmol/L (98-107) Carbon Dioxide Level 29mmol/L (21-32) Anion Gap 10 (6-14) Blood Urea Nitrogen 16mg/dL (7-20) Creatinine 1.0mg/dL (0.6-1.0) Estimated GFR (Cockcroft-Gault) 58.7 Glucose Level 166mg/dL (70-99) Calcium Level 9.2mg/dL (8.5-10.1) Test 10/01/16 11:15 Glucose (Fingerstick) 202mg/dL (70-99) Review of Systems Review of Systems no fever, chills, sob or chest pain Assessment and Plan Assessmemt and Plan Problems Medical Problems: (1) Acute renal failure Status: Acute (2) Diabetic ketoacidosis Status: Acute Problems: Comment Review of Relevant I have reviewed the following items edna (where applicable) has been applied. Labs Laboratory Tests Test 09/29/16 16:31 09/29/16 18:25 09/29/16 20:17 09/29/16 21:06 Glucose (Fingerstick) 322mg/dL (70-99) 345mg/dL (70-99) 401mg/dL (70-99) Creatine Kinase 65U/L (26-192) Creatine Kinase MB (Mass) 3.7ng/mL (0.0-3.6) Creatine Kinase MB Relative Index 5.7% (0-4) Troponin I Quantitative 0.204ng/mL (0.000-0.055) Test 09/29/16 22:02 09/29/16 22:26 09/30/16 08:20 09/30/16 12:41 Sodium Level 145mmol/L (136-145) 143mmol/L (136-145) Potassium Level 4.4mmol/L (3.5-5.1) 4.1mmol/L (3.5-5.1) Chloride Level 104mmol/L (98-107) 103mmol/L (98-107) Carbon Dioxide Level 16mmol/L (21-32) 21mmol/L (21-32) Anion Gap 25 (6-14) 19 (6-14) Blood Urea Nitrogen 37mg/dL (7-20) 25mg/dL (7-20) Creatinine 1.6mg/dL (0.6-1.0) 1.3mg/dL (0.6-1.0) Estimated GFR (Cockcroft-Gault) 34.1 43.4 Glucose Level 495mg/dL (70-99) 369mg/dL (70-99) Calcium Level 9.0mg/dL (8.5-10.1) 9.1mg/dL (8.5-10.1) Glucose (Fingerstick) 366mg/dL (70-99) 337mg/dL (70-99) White Blood Count 14.4x10^3/uL (4.0-11.0) Red Blood Count 4.21x10^6/uL (3.50-5.40) Hemoglobin 11.6g/dL (12.0-15.5) Hematocrit 37.1% (36.0-47.0) Mean Corpuscular Volume 88fL (79-100) Mean Corpuscular Hemoglobin 28pg (25-35) Mean Corpuscular Hemoglobin Concent 31g/dL (31-37) Red Cell Distribution Width 15.3% (11.5-14.5) Platelet Count 267x10^3/uL (140-400) Neutrophils (%) (Auto) 82% (31-73) Lymphocytes (%) (Auto) 10% (24-48) Monocytes (%) (Auto) 8% (0-9) Eosinophils (%) (Auto) 0% (0-3) Basophils (%) (Auto) 1% (0-3) Neutrophils # (Auto) 11.7x10^3uL (1.8-7.7) Lymphocytes # (Auto) 1.5x10^3/uL (1.0-4.8) Monocytes # (Auto) 1.1x10^3/uL (0.0-1.1) Eosinophils # (Auto) 0.0x10^3/uL (0.0-0.7) Basophils # (Auto) 0.1x10^3/uL (0.0-0.2) BUN/Creatinine Ratio 19 (6-20) Total Bilirubin 0.6mg/dL (0.2-1.0) Aspartate Amino Transf (AST/SGOT) 19U/L (15-37) Alanine Aminotransferase (ALT/SGPT) 15U/L (14-59) Alkaline Phosphatase 121U/L (46-116) Total Protein 7.0g/dL (6.4-8.2) Albumin 3.2g/dL (3.4-5.0) Albumin/Globulin Ratio 0.8 (1.0-1.7) Test 09/30/16 16:42 09/30/16 20:08 10/01/16 06:20 10/01/16 07:28 Glucose (Fingerstick) 400mg/dL (70-99) 254mg/dL (70-99) 168mg/dL (70-99) White Blood Count 7.0x10^3/uL (4.0-11.0) Red Blood Count 4.57x10^6/uL (3.50-5.40) Hemoglobin 12.8g/dL (12.0-15.5) Hematocrit 39.5% (36.0-47.0) Mean Corpuscular Volume 87fL (79-100) Mean Corpuscular Hemoglobin 28pg (25-35) Mean Corpuscular Hemoglobin Concent 32g/dL (31-37) Red Cell Distribution Width 15.3% (11.5-14.5) Platelet Count 253x10^3/uL (140-400) Neutrophils (%) (Auto) 67% (31-73) Lymphocytes (%) (Auto) 24% (24-48) Monocytes (%) (Auto) 8% (0-9) Eosinophils (%) (Auto) 0% (0-3) Basophils (%) (Auto) 1% (0-3) Neutrophils # (Auto) 4.7x10^3uL (1.8-7.7) Lymphocytes # (Auto) 1.7x10^3/uL (1.0-4.8) Monocytes # (Auto) 0.6x10^3/uL (0.0-1.1) Eosinophils # (Auto) 0.0x10^3/uL (0.0-0.7) Basophils # (Auto) 0.0x10^3/uL (0.0-0.2) Sodium Level 141mmol/L (136-145) Potassium Level 3.6mmol/L (3.5-5.1) Chloride Level 102mmol/L (98-107) Carbon Dioxide Level 29mmol/L (21-32) Anion Gap 10 (6-14) Blood Urea Nitrogen 16mg/dL (7-20) Creatinine 1.0mg/dL (0.6-1.0) Estimated GFR (Cockcroft-Gault) 58.7 Glucose Level 166mg/dL (70-99) Calcium Level 9.2mg/dL (8.5-10.1) Test 10/01/16 11:15 Glucose (Fingerstick) 202mg/dL (70-99) Laboratory Tests Test 09/30/16 16:42 09/30/16 20:08 10/01/16 06:20 10/01/16 07:28 Glucose (Fingerstick) 400mg/dL (70-99) 254mg/dL (70-99) 168mg/dL (70-99) White Blood Count 7.0x10^3/uL (4.0-11.0) Red Blood Count 4.57x10^6/uL (3.50-5.40) Hemoglobin 12.8g/dL (12.0-15.5) Hematocrit 39.5% (36.0-47.0) Mean Corpuscular Volume 87fL (79-100) Mean Corpuscular Hemoglobin 28pg (25-35) Mean Corpuscular Hemoglobin Concent 32g/dL (31-37) Red Cell Distribution Width 15.3% (11.5-14.5) Platelet Count 253x10^3/uL (140-400) Neutrophils (%) (Auto) 67% (31-73) Lymphocytes (%) (Auto) 24% (24-48) Monocytes (%) (Auto) 8% (0-9) Eosinophils (%) (Auto) 0% (0-3) Basophils (%) (Auto) 1% (0-3) Neutrophils # (Auto) 4.7x10^3uL (1.8-7.7) Lymphocytes # (Auto) 1.7x10^3/uL (1.0-4.8) Monocytes # (Auto) 0.6x10^3/uL (0.0-1.1) Eosinophils # (Auto) 0.0x10^3/uL (0.0-0.7) Basophils # (Auto) 0.0x10^3/uL (0.0-0.2) Sodium Level 141mmol/L (136-145) Potassium Level 3.6mmol/L (3.5-5.1) Chloride Level 102mmol/L (98-107) Carbon Dioxide Level 29mmol/L (21-32) Anion Gap 10 (6-14) Blood Urea Nitrogen 16mg/dL (7-20) Creatinine 1.0mg/dL (0.6-1.0) Estimated GFR (Cockcroft-Gault) 58.7 Glucose Level 166mg/dL (70-99) Calcium Level 9.2mg/dL (8.5-10.1) Test 10/01/16 11:15 Glucose (Fingerstick) 202mg/dL (70-99) Microbiology 09/28/16 Blood Culture - Preliminary, Resulted NO GROWTH AFTER 2 DAYS Medications Current Medications Sodium Chloride 1,000 ml @ 1,000 mls/hr Q1H IV Last administered on 09/28/16 18:27; Start 09/28/16 at 18:03; Stop 09/28/16 at 20:02; Status DC Insulin Human Regular (Novolin R Iv Drip) 150 ml @ 0 mls/hr 1X ONCE IV Last administered on 09/28/16 18:58; Start 09/28/16 at 18:15; Stop 09/29/16 at 13:40; Status DC Ondansetron HCl (Zofran) 4 mg 1X ONCE IV Last administered on 09/28/16 18:20; Start 09/28/16 at 18:30; Stop 09/28/16 at 18:31; Status DC Ondansetron HCl (Zofran) 4 mg PRN Q8HRS PRN IV NAUSEA/VOMITING Last administered on 09/29/16 05:59; Start 09/28/16 at 19:30; Stop 09/29/16 at 19:29; Status DC Fentanyl Citrate (Fentanyl 2ml Vial) 50 mcg PRN Q2HR PRN IV PAIN Last administered on 09/29/16 06:00; Start 09/28/16 at 19:30; Stop 09/29/16 at 13:40; Status DC Acetaminophen 650 mg 650 mg PRN Q4HRS PRN PO FEVER; Start 09/28/16 at 19:30; Stop 09/29/16 at 19:29; Status DC Potassium Chloride 100 ml @ 100 mls/hr PRN Q1HR PRN IV SEE COMMENTS; Start 09/28/16 at 19:30; Stop 09/28/16 at 22:56; Status DC Potassium Chloride 100 ml @ 100 mls/hr PRN Q1HR PRN IV SEE COMMENTS; Start 09/28/16 at 19:30; Stop 09/28/16 at 22:56; Status DC Potassium Chloride 100 ml @ 100 mls/hr PRN Q1HR PRN IV SEE COMMENTS; Start 09/28/16 at 19:30; Stop 09/28/16 at 22:56; Status DC Sodium Chloride 1,000 ml @ 250 mls/hr Q4H IV Last administered on 09/29/16 08: 18; Start 09/28/16 at 20:14; Stop 09/29/16 at 11:05; Status DC Sodium Chloride 1,000 ml @ 500 mls/hr Q2H IV Last administered on 09/29/16 01: 00; Start 09/28/16 at 23:00; Stop 09/29/16 at 09:09; Status DC Sodium Chloride 1,000 ml @ 250 mls/hr Q4H IV Last administered on 09/29/16 08: 17; Start 09/28/16 at 23:00; Stop 09/29/16 at 11:05; Status DC Dextrose/Sodium Chloride 1,000 ml @ 250 mls/hr Q4H IV Last administered on 09/29 11:36; Start 09/28/16 at 23:00; Stop 09/29/16 at 13:40; Status DC Insulin Human Regular 150 unit/ Sodium Chloride 151.5 ml @ 0 mls/hr CONT PRN PRN IV PER PROTOCOL Last administered on 09/29/16 06:04; Start 09/28/16 at 23:00 Potassium Chloride 100 ml @ 100 mls/hr PRN Q1HR PRN IV SEE COMMENTS; Start 09/28/16 at 22:30 Potassium Chloride 100 ml @ 100 mls/hr PRN Q1HR PRN IV SEE COMMENTS; Start 09/28/16 at 22:30 Magnesium Sulfate/ Dextrose 100 ml @ 25 mls/hr DAILY IV ; Start 09/29/16 at 09: 00; Stop 09/29/16 at 09:00; Status DC Sodium Bicarbonate 50 meq/Sodium Chloride 1,050 ml @ 500 mls/hr Q2H6M PRN IV SEE COMMENTS; Start 09/28/16 at 23:15; Status Cancel Sodium Phosphate 40 mmol/Sodium Chloride 513.3333 ml @ 83.3 mls/hr 1X PRN PRN IV SEE COMMENTS; Start 09/28/16 at 22:30; Stop 09/30/16 at 12:37; Status DC Sodium Phosphate 20 mmol/Dextrose 256.6667 ml @ 62.5 mls/hr 1X PRN PRN IV SEE COMMENTS; Start 09/28/16 at 22:30; Stop 09/30/16 at 12:37; Status DC Sodium Phosphate/ Dextrose 253.3333 ml @ 62.5 mls/hr 1X PRN PRN IV SEE COMMENTS ; Start 09/28/16 at 22:30 Pantoprazole Sodium 40 mg 40 mg DAILYAC IVP Last administered on 09/30/16 08:42 ; Start 09/29/16 at 07:30; Stop 09/30/16 at 12:37; Status DC Sodium Bicarbonate/ Sodium Chloride (Iv Sodium Chloride 0.45%) 1,050 ml @ 500 mls/hr CONT PRN IV SEE DKA PROTOCOL; Start 09/29/16 at 03:30; Stop 09/29/16 at 13 :40; Status DC Dextrose 25 gm 25 gm STK-MED ONCE IV ; Start 09/29/16 at 06:53; Stop 09/29/16 at 06:54; Status DC Dextrose/Sodium Chloride (Iv D5% - 1/2 NS) 1,000 ml @ 75 mls/hr 1X PRN PRN IV SEE COMMENTS; Start 09/29/16 at 07:15; Stop 09/29/16 at 13:40; Status DC Dextrose 25 gm 1X ONCE IV Last administered on 09/29/16 08:16; Start 09/29/16 at 07:45; Stop 09/29/16 at 07:46; Status DC Insulin Aspart (Novolog) 0-9 UNITS TIDWMEALS SQ Last administered on 09/30/16 01:13; Start 09/29/16 at 17:00; Stop 09/30/16 at 09:30; Status DC Dextrose 12.5 gm 12.5 gm PRN Q15MIN PRN IV SEE COMMENTS; Start 09/29/16 at 12:45 Sodium Chloride (Iv Sodium Chloride 0.45%) 1,000 ml @ 75 mls/hr [id number] IV Last administered on 09/29/16 17:14; Start 09/29/16 at 13:45; Stop 09/30/16 at 09: 30; Status DC Acetaminophen/ Hydrocodone Bitart (Lortab 5/325) 1 tab PRN Q4HRS PRN PO PAIN; Start 09/29/16 at 18:00 Morphine Sulfate 2 mg PRN Q2HR PRN IV PAIN Last administered on 10/01/16 05:20 ; Start 09/29/16 at 18:00 Morphine Sulfate 4 mg PRN Q2HR PRN IV PAIN; Start 09/29/16 at 18:00 Guaifenesin (Robitussin) 200 mg PRN Q4HRS PRN PO COUGH; Start 09/29/16 at 18:00 Insulin Aspart (Novolog) 10 units 1X ONCE SQ Last administered on 09/29/16 22: 00; Start 09/29/16 at 22:00; Stop 09/29/16 at 22:01; Status DC Insulin Aspart (Novolog) 4 units 1X ONCE SQ Last administered on 09/30/16 08: 50; Start 09/30/16 at 08:45; Stop 09/30/16 at 08:47; Status DC Insulin Aspart 0-9 UNITS QIDACHS SQ Last administered on 10/01/16 11:57; Start 09/30/16 at 11:30 Sodium Chloride (Iv Sodium Chloride 0.45%) 1,000 ml @ 125 mls/hr Q8H IV Last administered on 10/01/16 08:20; Start 09/30/16 at 09:30 Insulin Detemir (Levemir) 10 units BID SQ Last administered on 10/01/16 08:26; Start 09/30/16 at 10:00 Albuterol/ Ipratropium (Duoneb) 3 ml RTQID NEB Last administered on 10/01/16 07 :36; Start 09/30/16 at 12:00 Pantoprazole Sodium (Protonix) 40 mg DAILYAC PO Last administered on 10/01/16 08:18; Start 10/01/16 at 07:30; Stop 10/01/16 at 13:26; Status DC Acetaminophen (Tylenol) 650 mg PRN Q6HRS PRN PO MILD PAIN / TEMP; Start at 12:45 Ondansetron HCl (Zofran) 4 mg PRN Q6HRS PRN IV NAUSEA/VOMITING Last administered on 10/01/16 05:19; Start 09/30/16 at 12:45 Enoxaparin Sodium (Lovenox 40mg Syringe) 40 mg Q24H SQ Last administered on 09/30 13:13; Start 09/30/16 at 13:00 Insulin Human Regular 10 unit 10 unit 1X ONCE IV Last administered on 17:30; Start 09/30/16 at 17:15; Stop 09/30/16 at 17:16; Status DC Promethazine HCl/ Sodium Chloride (Phenergan/Iv Sodium Chloride 0.9% 50ml) 50.25 ml @ 150.75 mls/ hr PRN Q6HRS PRN IV NAUSEA/VOMITING Last administered on 10/01/16 08:19; Start 09/30/16 at 17:15 Hydralazine HCl (Apresoline) 10 mg PRN Q4HRS PRN IVP ELEVATED BP, SEE COMMENTS Last administered on 10/01/16 08:19; Start 09/30/16 at 21:00 Metoclopramide HCl (Reglan) 10 mg PRN Q6HRS PRN IV NAUSEA/VOMITING Last administered on 10/01/16 11:46; Start 10/01/16 at 09:30 Pantoprazole Sodium (Protonix Vial) 40 mg BIDAC IVP ; Start 10/01/16 at 16:30 Active Scripts Active Levemir Flextouch (Insulin Detemir) 100 Unit/1 Ml Insuln.pen 15 Units SQ BID Cipro (Ciprofloxacin Hcl) 250 Mg Tablet 750 Mg PO BID 9 Days Reported Ibuprofen 800 Mg Tablet 800 Mg PO PRN Q6HRS PRN Humalog (Insulin Lispro) 100 Unit/1 Ml Cartridge 100 Unit SQ Vitals/I & O Vital Sign - Last 24 Hours 09/30/16 09/30/16 09/30/16 09/30/16 15:44 19:00 20:00 21:29 Temp 97.7 97.6 97.7 97.6 Pulse 117 119 119 Resp 19 B/P 184/98 171/81 171/81 Pulse Ox 97 95 O2 Delivery Room Air Room Air Room Air 09/30/16 09/30/16 10/01/16 10/01/16 23:00 23:48 03:00 05:20 Temp 98.6 98.6 98.6 98.6 Pulse 116 109 Resp 17 16 B/P 166/93 172/103 Pulse Ox 98 96 O2 Delivery Room Air Room Air Room Air Room Air 10/01/16 10/01/16 10/01/16 10/01/16 05:50 07:00 07:35 08:00 Temp 99.0 99.0 Pulse 105 Resp 22 B/P 185/95 Pulse Ox 95 98 O2 Delivery Room Air Room Air Room Air Room Air 10/01/16 10/01/16 08:19 11:00 Temp 98.9 98.9 Pulse 105 102 Resp 20 B/P 185/95 152/99 Pulse Ox 96 O2 Delivery Room Air Intake and Output 09/30/16 09/30/16 10/01/16 15:00 23:00 07:00 Intake Total 50.25 ml Output Total 875 ml 1750 ml 775 ml Balance -875 ml -1750 ml -724.75 ml DEWEY LEMON MD Oct 01, 2016 13:32
--- NOTE | 2016-10-01 14:18 | RAD ---
Indication change in mental status. Noncontrast images of the head were obtained. No prior imaging of the head is available. The calvarium appears unremarkable and the visualized paranasal sinuses appear normal. There is no subdural or epidural hematoma. No mass or midline shift is seen. There is no hemorrhage. Acute finding is not apparent. IMPRESSION: No acute finding seen in the head PQRS Compliance Statement: One or more of the following individualized dose reduction techniques were utilized for this examination: 1. Automated exposure control 2. Adjustment of the mA and/or kV according to patient size 3. Use of iterative reconstruction technique
[2016-10-01] MEDS: ENOXAPARIN 40 MG/0.4 ML DISP.SYRIN. SQ SCH (14:48)
[2016-10-01 15:00] VITALS: BP 149/84
--- NOTE | 2016-10-01 17:18 | PDOC2 ---
NEUROLOGY CONSULT Date of Admission Date of Admission DATE: 10/01/16 TIME: 17:05 Reason for Consult Reason for Consult: IMPRESSION: Metabolic encephalopathy. DKA Hyperglycemia, glucose 983 hypoglycemia, glucose 43 DM, poorly controlled Lactic acidosis. Renal failure, acute likely. Leukocytosis, WBC 28.2 Fatty liver. Nausea Vomiting. Diarrhea Abdominal pain RECOMMENDATIONS/PLAN: Treat DKA Treat medical diseases. Control hyperglycemia and hypoglycemia. Lab: see orders. HCT: No evidence of cerebral edema, ICH or large infarct. HISTORY OF THE PRESENT ILLNESS: 51-y-old female patient came to the ER of [facility] with complaints of not feeling well, nausea, vomiting, diarrhea, abdominal pain, MS changes, etc. She stated she did not know she had DM but documentation stated she had PMHx of DM. She has not seen PCP for over a year. Her serium glucose lever was 983 in ER. No focalized motor or sensory deficits. PAST MEDICAL HISTORY: Please see above. PAST SURGERY HISTORY: Cataract surgery . ALLERGY: Unknown MEDICATIONS: Refer to [facility] HISTORY: CAD DM SOCIAL HISTORY: Lives alone at home. Denies current smoking, drinking, and illicit drug use. REVIEW OF SYSTEMS: Constitutional: No malnutrition, weight loss, cachexia. Head: No recent traumatic brain or head injury. Skin: No edema, or rash. Ear: No infection, tinnitus. Eyes: No vision loss or color blindness. Nose: No bleeding or purulent discharges. Hearing: No hearing decrease. Neck: No injury. Breast: No history of cancer, masses,or discharges. Cardiac: No WI, arrhythmia. Pulmonary: No COPD. GI: No GI ulcer, GI bleeding. Urinary/genital: UTI. Endocrinologic: Diabetes Mellitus, hypothyroidism. Skeletomuscular: No muscular atrophy, deformity. Neurological: see HP. Psychiatric: Denies drug use/abuse. Otherwise, not -grpnp review of systems. PHYSICAL EXAMINATION: General appearance is in acute distress. HEENT: Normocephalic and nontraumatic. Eyes, nose, ears, and throat are unremarkable. Neck is supple. No lymphadenopathy. No bruits are heard over the carotid artery. No crepitus. Cardiovascular: S1, S2, regular rate and rhythm. Pulmonary: Clear to auscultation bilaterally. Abdomen: Bowel sounds are positive. Extremities: No rash, lesions, or edema. No restriction of range of motion NEUROLOGICAL EXAMINATION: Mildly lethargic. Not oriented to time, place and person. PERRL. EOMI. CN: no focal findings. Muscle tone: within normal. Muscle strength: 5- DTR: 2 Plantar reflex: Flexor response bilaterally Gait: not examined in bed. Sensory exam: no abnormal findings. No acute cerebellar signs elicited. F-T-N test not examed. Current Medications Current Medications Current Medications Sodium Chloride 1,000 ml @ 1,000 mls/hr Q1H IV Last administered on 09/28/16 18:27; Start 09/28/16 at 18:03; Stop 09/28/16 at 20:02; Status DC Insulin Human Regular (Novolin R Iv Drip) 150 ml @ 0 mls/hr 1X ONCE IV Last administered on 09/28/16 18:58; Start 09/28/16 at 18:15; Stop 09/29/16 at 13:40; Status DC Ondansetron HCl (Zofran) 4 mg 1X ONCE IV Last administered on 09/28/16 18:20; Start 09/28/16 at 18:30; Stop 09/28/16 at 18:31; Status DC Ondansetron HCl (Zofran) 4 mg PRN Q8HRS PRN IV NAUSEA/VOMITING Last administered on 09/29/16 05:59; Start 09/28/16 at 19:30; Stop 09/29/16 at 19:29; Status DC Fentanyl Citrate (Fentanyl 2ml Vial) 50 mcg PRN Q2HR PRN IV PAIN Last administered on 09/29/16 06:00; Start 09/28/16 at 19:30; Stop 09/29/16 at 13:40; Status DC Acetaminophen 650 mg 650 mg PRN Q4HRS PRN PO FEVER; Start 09/28/16 at 19:30; Stop 09/29/16 at 19:29; Status DC Potassium Chloride 100 ml @ 100 mls/hr PRN Q1HR PRN IV SEE COMMENTS; Start 09/28/16 at 19:30; Stop 09/28/16 at 22:56; Status DC Potassium Chloride 100 ml @ 100 mls/hr PRN Q1HR PRN IV SEE COMMENTS; Start 09/28/16 at 19:30; Stop 09/28/16 at 22:56; Status DC Potassium Chloride 100 ml @ 100 mls/hr PRN Q1HR PRN IV SEE COMMENTS; Start 09/28/16 at 19:30; Stop 09/28/16 at 22:56; Status DC Sodium Chloride 1,000 ml @ 250 mls/hr Q4H IV Last administered on 09/29/16 08: 18; Start 09/28/16 at 20:14; Stop 09/29/16 at 11:05; Status DC Sodium Chloride 1,000 ml @ 500 mls/hr Q2H IV Last administered on 09/29/16 01: 00; Start 09/28/16 at 23:00; Stop 09/29/16 at 09:09; Status DC Sodium Chloride 1,000 ml @ 250 mls/hr Q4H IV Last administered on 09/29/16 08: 17; Start 09/28/16 at 23:00; Stop 09/29/16 at 11:05; Status DC Dextrose/Sodium Chloride 1,000 ml @ 250 mls/hr Q4H IV Last administered on 09/29 11:36; Start 09/28/16 at 23:00; Stop 09/29/16 at 13:40; Status DC Insulin Human Regular 150 unit/ Sodium Chloride 151.5 ml @ 0 mls/hr CONT PRN PRN IV PER PROTOCOL Last administered on 09/29/16 06:04; Start 09/28/16 at 23:00 Potassium Chloride 100 ml @ 100 mls/hr PRN Q1HR PRN IV SEE COMMENTS; Start 09/28/16 at 22:30 Potassium Chloride 100 ml @ 100 mls/hr PRN Q1HR PRN IV SEE COMMENTS; Start 09/28/16 at 22:30 Magnesium Sulfate/ Dextrose 100 ml @ 25 mls/hr DAILY IV ; Start 09/29/16 at 09: 00; Stop 09/29/16 at 09:00; Status DC Sodium Bicarbonate 50 meq/Sodium Chloride 1,050 ml @ 500 mls/hr Q2H6M PRN IV SEE COMMENTS; Start 09/28/16 at 23:15; Status Cancel Sodium Phosphate 40 mmol/Sodium Chloride 513.3333 ml @ 83.3 mls/hr 1X PRN PRN IV SEE COMMENTS; Start 09/28/16 at 22:30; Stop 09/30/16 at 12:37; Status DC Sodium Phosphate 20 mmol/Dextrose 256.6667 ml @ 62.5 mls/hr 1X PRN PRN IV SEE COMMENTS; Start 09/28/16 at 22:30; Stop 09/30/16 at 12:37; Status DC Sodium Phosphate/ Dextrose 253.3333 ml @ 62.5 mls/hr 1X PRN PRN IV SEE COMMENTS ; Start 09/28/16 at 22:30 Pantoprazole Sodium 40 mg 40 mg DAILYAC IVP Last administered on 09/30/16 08:42 ; Start 09/29/16 at 07:30; Stop 09/30/16 at 12:37; Status DC Sodium Bicarbonate/ Sodium Chloride (Iv Sodium Chloride 0.45%) 1,050 ml @ 500 mls/hr CONT PRN IV SEE DKA PROTOCOL; Start 09/29/16 at 03:30; Stop 09/29/16 at 13 :40; Status DC Dextrose 25 gm 25 gm STK-MED ONCE IV ; Start 09/29/16 at 06:53; Stop 09/29/16 at 06:54; Status DC Dextrose/Sodium Chloride (Iv D5% - 1/2 NS) 1,000 ml @ 75 mls/hr 1X PRN PRN IV SEE COMMENTS; Start 09/29/16 at 07:15; Stop 09/29/16 at 13:40; Status DC Dextrose 25 gm 1X ONCE IV Last administered on 09/29/16 08:16; Start 09/29/16 at 07:45; Stop 09/29/16 at 07:46; Status DC Insulin Aspart (Novolog) 0-9 UNITS TIDWMEALS SQ Last administered on 09/30/16 01:13; Start 09/29/16 at 17:00; Stop 09/30/16 at 09:30; Status DC Dextrose 12.5 gm 12.5 gm PRN Q15MIN PRN IV SEE COMMENTS; Start 09/29/16 at 12:45 Sodium Chloride (Iv Sodium Chloride 0.45%) 1,000 ml @ 75 mls/hr [id number] IV Last administered on 09/29/16 17:14; Start 09/29/16 at 13:45; Stop 09/30/16 at 09: 30; Status DC Acetaminophen/ Hydrocodone Bitart (Lortab 5/325) 1 tab PRN Q4HRS PRN PO PAIN; Start 09/29/16 at 18:00 Morphine Sulfate 2 mg PRN Q2HR PRN IV PAIN Last administered on 10/01/16 05:20 ; Start 09/29/16 at 18:00 Morphine Sulfate 4 mg PRN Q2HR PRN IV PAIN; Start 09/29/16 at 18:00 Guaifenesin (Robitussin) 200 mg PRN Q4HRS PRN PO COUGH; Start 09/29/16 at 18:00 Insulin Aspart (Novolog) 10 units 1X ONCE SQ Last administered on 09/29/16 22: 00; Start 09/29/16 at 22:00; Stop 09/29/16 at 22:01; Status DC Insulin Aspart (Novolog) 4 units 1X ONCE SQ Last administered on 09/30/16 08: 50; Start 09/30/16 at 08:45; Stop 09/30/16 at 08:47; Status DC Insulin Aspart 0-9 UNITS QIDACHS SQ Last administered on 10/01/16 11:57; Start 09/30/16 at 11:30 Sodium Chloride (Iv Sodium Chloride 0.45%) 1,000 ml @ 125 mls/hr Q8H IV Last administered on 10/01/16 08:20; Start 09/30/16 at 09:30 Insulin Detemir (Levemir) 10 units BID SQ Last administered on 10/01/16 08:26; Start 09/30/16 at 10:00 Albuterol/ Ipratropium (Duoneb) 3 ml RTQID NEB Last administered on 10/01/16 15 :00; Start 09/30/16 at 12:00 Pantoprazole Sodium (Protonix) 40 mg DAILYAC PO Last administered on 10/01/16 08:18; Start 10/01/16 at 07:30; Stop 10/01/16 at 13:26; Status DC Acetaminophen (Tylenol) 650 mg PRN Q6HRS PRN PO MILD PAIN / TEMP; Start at 12:45 Ondansetron HCl (Zofran) 4 mg PRN Q6HRS PRN IV NAUSEA/VOMITING Last administered on 10/01/16 05:19; Start 09/30/16 at 12:45 Enoxaparin Sodium (Lovenox 40mg Syringe) 40 mg Q24H SQ Last administered on 10/01 14:48; Start 09/30/16 at 13:00 Insulin Human Regular 10 unit 10 unit 1X ONCE IV Last administered on 17:30; Start 09/30/16 at 17:15; Stop 09/30/16 at 17:16; Status DC Promethazine HCl/ Sodium Chloride (Phenergan/Iv Sodium Chloride 0.9% 50ml) 50.25 ml @ 150.75 mls/ hr PRN Q6HRS PRN IV NAUSEA/VOMITING Last administered on 10/01/16 08:19; Start 09/30/16 at 17:15 Hydralazine HCl (Apresoline) 10 mg PRN Q4HRS PRN IVP ELEVATED BP, SEE COMMENTS Last administered on 10/01/16 08:19; Start 09/30/16 at 21:00 Metoclopramide HCl (Reglan) 10 mg PRN Q6HRS PRN IV NAUSEA/VOMITING Last administered on 10/01/16 11:46; Start 10/01/16 at 09:30 Pantoprazole Sodium (Protonix Vial) 40 mg BIDAC IVP ; Start 10/01/16 at 16:30 Active Scripts Active Levemir Flextouch (Insulin Detemir) 100 Unit/1 Ml Insuln.pen 15 Units SQ BID Cipro (Ciprofloxacin Hcl) 250 Mg Tablet 750 Mg PO BID 9 Days Reported Ibuprofen 800 Mg Tablet 800 Mg PO PRN Q6HRS PRN Humalog (Insulin Lispro) 100 Unit/1 Ml Cartridge 100 Unit SQ Allergies Allergies: Coded Allergies: No Known Drug Allergies (Unverified , 07/01/16) Vitals VITALS Vital Signs Date Time Temp Pulse Resp B/P Pulse Ox O2 Delivery O2 Flow Rate FiO2 10/01/16 15:01 Room Air 10/01/16 15:00 98.9 116 20 149/84 98 98.9 Labs Labs Laboratory Tests Test 09/29/16 18:25 09/29/16 20:17 09/29/16 21:06 09/29/16 22:02 Creatine Kinase 65U/L (26-192) Creatine Kinase MB (Mass) 3.7ng/mL (0.0-3.6) Creatine Kinase MB Relative Index 5.7% (0-4) Troponin I Quantitative 0.204ng/mL (0.000-0.055) Glucose (Fingerstick) 345mg/dL (70-99) 401mg/dL (70-99) Sodium Level 145mmol/L (136-145) Potassium Level 4.4mmol/L (3.5-5.1) Chloride Level 104mmol/L (98-107) Carbon Dioxide Level 16mmol/L (21-32) Anion Gap 25 (6-14) Blood Urea Nitrogen 37mg/dL (7-20) Creatinine 1.6mg/dL (0.6-1.0) Estimated GFR (Cockcroft-Gault) 34.1 Glucose Level 495mg/dL (70-99) Calcium Level 9.0mg/dL (8.5-10.1) Test 09/29/16 22:26 09/30/16 08:20 09/30/16 12:41 09/30/16 16:42 Glucose (Fingerstick) 366mg/dL (70-99) 337mg/dL (70-99) 400mg/dL (70-99) White Blood Count 14.4x10^3/uL (4.0-11.0) Red Blood Count 4.21x10^6/uL (3.50-5.40) Hemoglobin 11.6g/dL (12.0-15.5) Hematocrit 37.1% (36.0-47.0) Mean Corpuscular Volume 88fL (79-100) Mean Corpuscular Hemoglobin 28pg (25-35) Mean Corpuscular Hemoglobin Concent 31g/dL (31-37) Red Cell Distribution Width 15.3% (11.5-14.5) Platelet Count 267x10^3/uL (140-400) Neutrophils (%) (Auto) 82% (31-73) Lymphocytes (%) (Auto) 10% (24-48) Monocytes (%) (Auto) 8% (0-9) Eosinophils (%) (Auto) 0% (0-3) Basophils (%) (Auto) 1% (0-3) Neutrophils # (Auto) 11.7x10^3uL (1.8-7.7) Lymphocytes # (Auto) 1.5x10^3/uL (1.0-4.8) Monocytes # (Auto) 1.1x10^3/uL (0.0-1.1) Eosinophils # (Auto) 0.0x10^3/uL (0.0-0.7) Basophils # (Auto) 0.1x10^3/uL (0.0-0.2) Sodium Level 143mmol/L (136-145) Potassium Level 4.1mmol/L (3.5-5.1) Chloride Level 103mmol/L (98-107) Carbon Dioxide Level 21mmol/L (21-32) Anion Gap 19 (6-14) Blood Urea Nitrogen 25mg/dL (7-20) Creatinine 1.3mg/dL (0.6-1.0) Estimated GFR (Cockcroft-Gault) 43.4 BUN/Creatinine Ratio 19 (6-20) Glucose Level 369mg/dL (70-99) Calcium Level 9.1mg/dL (8.5-10.1) Total Bilirubin 0.6mg/dL (0.2-1.0) Aspartate Amino Transf (AST/SGOT) 19U/L (15-37) Alanine Aminotransferase (ALT/SGPT) 15U/L (14-59) Alkaline Phosphatase 121U/L (46-116) Total Protein 7.0g/dL (6.4-8.2) Albumin 3.2g/dL (3.4-5.0) Albumin/Globulin Ratio 0.8 (1.0-1.7) Test 09/30/16 20:08 10/01/16 06:20 10/01/16 07:28 10/01/16 11:15 Glucose (Fingerstick) 254mg/dL (70-99) 168mg/dL (70-99) 202mg/dL (70-99) White Blood Count 7.0x10^3/uL (4.0-11.0) Red Blood Count 4.57x10^6/uL (3.50-5.40) Hemoglobin 12.8g/dL (12.0-15.5) Hematocrit 39.5% (36.0-47.0) Mean Corpuscular Volume 87fL (79-100) Mean Corpuscular Hemoglobin 28pg (25-35) Mean Corpuscular Hemoglobin Concent 32g/dL (31-37) Red Cell Distribution Width 15.3% (11.5-14.5) Platelet Count 253x10^3/uL (140-400) Neutrophils (%) (Auto) 67% (31-73) Lymphocytes (%) (Auto) 24% (24-48) Monocytes (%) (Auto) 8% (0-9) Eosinophils (%) (Auto) 0% (0-3) Basophils (%) (Auto) 1% (0-3) Neutrophils # (Auto) 4.7x10^3uL (1.8-7.7) Lymphocytes # (Auto) 1.7x10^3/uL (1.0-4.8) Monocytes # (Auto) 0.6x10^3/uL (0.0-1.1) Eosinophils # (Auto) 0.0x10^3/uL (0.0-0.7) Basophils # (Auto) 0.0x10^3/uL (0.0-0.2) Sodium Level 141mmol/L (136-145) Potassium Level 3.6mmol/L (3.5-5.1) Chloride Level 102mmol/L (98-107) Carbon Dioxide Level 29mmol/L (21-32) Anion Gap 10 (6-14) Blood Urea Nitrogen 16mg/dL (7-20) Creatinine 1.0mg/dL (0.6-1.0) Estimated GFR (Cockcroft-Gault) 58.7 Glucose Level 166mg/dL (70-99) Calcium Level 9.2mg/dL (8.5-10.1) Thyroid Stimulating Hormone (TSH) 2.255uIU/mL (0.358-3.74) Laboratory Tests Test 09/30/16 20:08 10/01/16 06:20 10/01/16 07:28 10/01/16 11:15 Glucose (Fingerstick) 254mg/dL (70-99) 168mg/dL (70-99) 202mg/dL (70-99) White Blood Count 7.0x10^3/uL (4.0-11.0) Red Blood Count 4.57x10^6/uL (3.50-5.40) Hemoglobin 12.8g/dL (12.0-15.5) Hematocrit 39.5% (36.0-47.0) Mean Corpuscular Volume 87fL (79-100) Mean Corpuscular Hemoglobin 28pg (25-35) Mean Corpuscular Hemoglobin Concent 32g/dL (31-37) Red Cell Distribution Width 15.3% (11.5-14.5) Platelet Count 253x10^3/uL (140-400) Neutrophils (%) (Auto) 67% (31-73) Lymphocytes (%) (Auto) 24% (24-48) Monocytes (%) (Auto) 8% (0-9) Eosinophils (%) (Auto) 0% (0-3) Basophils (%) (Auto) 1% (0-3) Neutrophils # (Auto) 4.7x10^3uL (1.8-7.7) Lymphocytes # (Auto) 1.7x10^3/uL (1.0-4.8) Monocytes # (Auto) 0.6x10^3/uL (0.0-1.1) Eosinophils # (Auto) 0.0x10^3/uL (0.0-0.7) Basophils # (Auto) 0.0x10^3/uL (0.0-0.2) Sodium Level 141mmol/L (136-145) Potassium Level 3.6mmol/L (3.5-5.1) Chloride Level 102mmol/L (98-107) Carbon Dioxide Level 29mmol/L (21-32) Anion Gap 10 (6-14) Blood Urea Nitrogen 16mg/dL (7-20) Creatinine 1.0mg/dL (0.6-1.0) Estimated GFR (Cockcroft-Gault) 58.7 Glucose Level 166mg/dL (70-99) Calcium Level 9.2mg/dL (8.5-10.1) Thyroid Stimulating Hormone (TSH) 2.255uIU/mL (0.358-3.74) LEONARDO SANCHEZ MD Oct 01, 2016 17:18
[2016-10-01] MEDS: PANTOPRAZOLE IV PUSH 40 MG VIAL. IVP SCH (17:35)
[2016-10-01 19:00] VITALS: BP 170/88
[2016-10-01] MEDS: AA 3%/ELECTROLYTE-TPN SOLN/GLY 1,000 ML IV SCH (21:07)
[2016-10-01 23:00] VITALS: BP 141/71
[2016-10-02] MEDS: IV 1/2 NORMAL SALINE 1,000 ML IV SCH ×3 (01:41→20:11)
[2016-10-02] MEDS: PROMETHAZINE 6.25 MG in IV NORMAL SALINE 50ML 50 ML IV PRN ×2 (01:42→15:48)
[2016-10-02 03:00] VITALS: BP 177/97
[2016-10-02 06:39] LABS: BASO % 0 % (0-3); EOS % 0 % (0-3); HEMATOCRIT 39.2 % (36.0-47.0); HEMOGLOBIN 12.7 g/dL (12.0-15.5); LYMPH # 1.5 x10^3/uL (1.0-4.8); LYMPH % 17 % (24-48); MEAN CORPUSCULAR HEMOGLOBIN 28 pg (25-35); MEAN CORPUSCULAR HGB CONC 32 g/dL (31-37); MEAN CORPUSCULAR VOLUME 86 fL (79-100); MONO % 7 % (0-9); NEUT % 75 % (31-73); PLATELET COUNT 245 x10^3/uL (140-400); RED BLOOD COUNT 4.54 x10^6/uL (3.50-5.40); RED CELL DISTRIBUTION WIDTH 14.6 % (11.5-14.5); WHITE BLOOD COUNT 8.4 x10^3/uL (4.0-11.0)
[2016-10-02 07:00] VITALS: BP 159/89
[2016-10-02] MEDS: PANTOPRAZOLE IV PUSH 40 MG VIAL. IVP SCH ×2 (07:02→17:01)
[2016-10-02] MEDS: METOCLOPRAMIDE HCL 10 MG/2 ML VIAL. IV PRN ×2 (07:02→17:01)
[2016-10-02 07:03] LABS: CALCIUM 8.9 mg/dL (8.5-10.1); CREATININE 0.8 mg/dL (0.6-1.0); GFR 75.9; POTASSIUM 3.2 mmol/L (3.5-5.1)
[2016-10-02] MEDS: IPRATRPIUM/ALBUTEROL 0.5/2.5MG 3 ML NEBU. NEB SCH ×4 (07:30→20:00)
[2016-10-02] MEDS: AA 3%/ELECTROLYTE-TPN SOLN/GLY 1,000 ML IV SCH (07:51)
[2016-10-02] MEDS: ENOXAPARIN 40 MG/0.4 ML DISP.SYRIN. SQ SCH (07:55)
[2016-10-02] MEDS: INSULIN DETEMIR 300 UNITS/3 ML INSULN.PEN. SQ SCH (07:58)
[2016-10-02] MEDS: INSULIN ASPART 300 UNITS/3 ML INSULN.PEN SQ SCH ×4 (07:58→21:55)
[2016-10-02] MEDS: POTASSIUM CHLORIDE 10MEQ 100 ML IV SCH ×4 (09:16→13:00)
--- NOTE | 2016-10-02 09:50 | PDOC ---
G I PROGRESS NOTE Subjective Thinks nausea and vomiting better. Trying clears. Physical Exam Abdomen benign. Review of Relevant I have reviewed the following items edna (where applicable) has been applied. Labs Laboratory Tests Test 09/30/16 12:41 09/30/16 16:42 09/30/16 20:08 10/01/16 06:20 Glucose (Fingerstick) 337mg/dL (70-99) 400mg/dL (70-99) 254mg/dL (70-99) White Blood Count 7.0x10^3/uL (4.0-11.0) Red Blood Count 4.57x10^6/uL (3.50-5.40) Hemoglobin 12.8g/dL (12.0-15.5) Hematocrit 39.5% (36.0-47.0) Mean Corpuscular Volume 87fL (79-100) Mean Corpuscular Hemoglobin 28pg (25-35) Mean Corpuscular Hemoglobin Concent 32g/dL (31-37) Red Cell Distribution Width 15.3% (11.5-14.5) Platelet Count 253x10^3/uL (140-400) Neutrophils (%) (Auto) 67% (31-73) Lymphocytes (%) (Auto) 24% (24-48) Monocytes (%) (Auto) 8% (0-9) Eosinophils (%) (Auto) 0% (0-3) Basophils (%) (Auto) 1% (0-3) Neutrophils # (Auto) 4.7x10^3uL (1.8-7.7) Lymphocytes # (Auto) 1.7x10^3/uL (1.0-4.8) Monocytes # (Auto) 0.6x10^3/uL (0.0-1.1) Eosinophils # (Auto) 0.0x10^3/uL (0.0-0.7) Basophils # (Auto) 0.0x10^3/uL (0.0-0.2) Sodium Level 141mmol/L (136-145) Potassium Level 3.6mmol/L (3.5-5.1) Chloride Level 102mmol/L (98-107) Carbon Dioxide Level 29mmol/L (21-32) Anion Gap 10 (6-14) Blood Urea Nitrogen 16mg/dL (7-20) Creatinine 1.0mg/dL (0.6-1.0) Estimated GFR (Cockcroft-Gault) 58.7 Glucose Level 166mg/dL (70-99) Calcium Level 9.2mg/dL (8.5-10.1) Thyroid Stimulating Hormone (TSH) 2.255uIU/mL (0.358-3.74) Test 10/01/16 07:28 10/01/16 11:15 10/01/16 16:43 10/01/16 20:34 Glucose (Fingerstick) 168mg/dL (70-99) 202mg/dL (70-99) 165mg/dL (70-99) 198mg/dL (70-99) Test 10/02/16 05:55 10/02/16 07:45 White Blood Count 8.4x10^3/uL (4.0-11.0) Red Blood Count 4.54x10^6/uL (3.50-5.40) Hemoglobin 12.7g/dL (12.0-15.5) Hematocrit 39.2% (36.0-47.0) Mean Corpuscular Volume 86fL (79-100) Mean Corpuscular Hemoglobin 28pg (25-35) Mean Corpuscular Hemoglobin Concent 32g/dL (31-37) Red Cell Distribution Width 14.6% (11.5-14.5) Platelet Count 245x10^3/uL (140-400) Neutrophils (%) (Auto) 75% (31-73) Lymphocytes (%) (Auto) 17% (24-48) Monocytes (%) (Auto) 7% (0-9) Eosinophils (%) (Auto) 0% (0-3) Basophils (%) (Auto) 0% (0-3) Neutrophils # (Auto) 6.3x10^3uL (1.8-7.7) Lymphocytes # (Auto) 1.5x10^3/uL (1.0-4.8) Monocytes # (Auto) 0.6x10^3/uL (0.0-1.1) Eosinophils # (Auto) 0.0x10^3/uL (0.0-0.7) Basophils # (Auto) 0.0x10^3/uL (0.0-0.2) Sodium Level 132mmol/L (136-145) Potassium Level 3.2mmol/L (3.5-5.1) Chloride Level 96mmol/L (98-107) Carbon Dioxide Level 26mmol/L (21-32) Anion Gap 10 (6-14) Blood Urea Nitrogen 16mg/dL (7-20) Creatinine 0.8mg/dL (0.6-1.0) Estimated GFR (Cockcroft-Gault) 75.9 Glucose Level 255mg/dL (70-99) Calcium Level 8.9mg/dL (8.5-10.1) Glucose (Fingerstick) 253mg/dL (70-99) Laboratory Tests Test 10/01/16 11:15 10/01/16 16:43 10/01/16 20:34 10/02/16 05:55 Glucose (Fingerstick) 202mg/dL (70-99) 165mg/dL (70-99) 198mg/dL (70-99) White Blood Count 8.4x10^3/uL (4.0-11.0) Red Blood Count 4.54x10^6/uL (3.50-5.40) Hemoglobin 12.7g/dL (12.0-15.5) Hematocrit 39.2% (36.0-47.0) Mean Corpuscular Volume 86fL (79-100) Mean Corpuscular Hemoglobin 28pg (25-35) Mean Corpuscular Hemoglobin Concent 32g/dL (31-37) Red Cell Distribution Width 14.6% (11.5-14.5) Platelet Count 245x10^3/uL (140-400) Neutrophils (%) (Auto) 75% (31-73) Lymphocytes (%) (Auto) 17% (24-48) Monocytes (%) (Auto) 7% (0-9) Eosinophils (%) (Auto) 0% (0-3) Basophils (%) (Auto) 0% (0-3) Neutrophils # (Auto) 6.3x10^3uL (1.8-7.7) Lymphocytes # (Auto) 1.5x10^3/uL (1.0-4.8) Monocytes # (Auto) 0.6x10^3/uL (0.0-1.1) Eosinophils # (Auto) 0.0x10^3/uL (0.0-0.7) Basophils # (Auto) 0.0x10^3/uL (0.0-0.2) Sodium Level 132mmol/L (136-145) Potassium Level 3.2mmol/L (3.5-5.1) Chloride Level 96mmol/L (98-107) Carbon Dioxide Level 26mmol/L (21-32) Anion Gap 10 (6-14) Blood Urea Nitrogen 16mg/dL (7-20) Creatinine 0.8mg/dL (0.6-1.0) Estimated GFR (Cockcroft-Gault) 75.9 Glucose Level 255mg/dL (70-99) Calcium Level 8.9mg/dL (8.5-10.1) Test 10/02/16 07:45 Glucose (Fingerstick) 253mg/dL (70-99) Microbiology 09/28/16 Blood Culture - Preliminary, Resulted NO GROWTH AFTER 3 DAYS Sugars ~200's mostly. Medications Current Medications Sodium Chloride 1,000 ml @ 1,000 mls/hr Q1H IV Last administered on 09/28/16 18:27; Start 09/28/16 at 18:03; Stop 09/28/16 at 20:02; Status DC Insulin Human Regular (Novolin R Iv Drip) 150 ml @ 0 mls/hr 1X ONCE IV Last administered on 09/28/16 18:58; Start 09/28/16 at 18:15; Stop 09/29/16 at 13:40; Status DC Ondansetron HCl (Zofran) 4 mg 1X ONCE IV Last administered on 09/28/16 18:20; Start 09/28/16 at 18:30; Stop 09/28/16 at 18:31; Status DC Ondansetron HCl (Zofran) 4 mg PRN Q8HRS PRN IV NAUSEA/VOMITING Last administered on 09/29/16 05:59; Start 09/28/16 at 19:30; Stop 09/29/16 at 19:29; Status DC Fentanyl Citrate (Fentanyl 2ml Vial) 50 mcg PRN Q2HR PRN IV PAIN Last administered on 09/29/16 06:00; Start 09/28/16 at 19:30; Stop 09/29/16 at 13:40; Status DC Acetaminophen 650 mg 650 mg PRN Q4HRS PRN PO FEVER; Start 09/28/16 at 19:30; Stop 09/29/16 at 19:29; Status DC Potassium Chloride 100 ml @ 100 mls/hr PRN Q1HR PRN IV SEE COMMENTS; Start 09/28/16 at 19:30; Stop 09/28/16 at 22:56; Status DC Potassium Chloride 100 ml @ 100 mls/hr PRN Q1HR PRN IV SEE COMMENTS; Start 09/28/16 at 19:30; Stop 09/28/16 at 22:56; Status DC Potassium Chloride 100 ml @ 100 mls/hr PRN Q1HR PRN IV SEE COMMENTS; Start 09/28/16 at 19:30; Stop 09/28/16 at 22:56; Status DC Sodium Chloride 1,000 ml @ 250 mls/hr Q4H IV Last administered on 09/29/16 08: 18; Start 09/28/16 at 20:14; Stop 09/29/16 at 11:05; Status DC Sodium Chloride 1,000 ml @ 500 mls/hr Q2H IV Last administered on 09/29/16 01: 00; Start 09/28/16 at 23:00; Stop 09/29/16 at 09:09; Status DC Sodium Chloride 1,000 ml @ 250 mls/hr Q4H IV Last administered on 09/29/16 08: 17; Start 09/28/16 at 23:00; Stop 09/29/16 at 11:05; Status DC Dextrose/Sodium Chloride 1,000 ml @ 250 mls/hr Q4H IV Last administered on 09/29 11:36; Start 09/28/16 at 23:00; Stop 09/29/16 at 13:40; Status DC Insulin Human Regular 150 unit/ Sodium Chloride 151.5 ml @ 0 mls/hr CONT PRN PRN IV PER PROTOCOL Last administered on 09/29/16 06:04; Start 09/28/16 at 23:00 ; Stop 10/01/16 at 17:17; Status DC Potassium Chloride 100 ml @ 100 mls/hr PRN Q1HR PRN IV SEE COMMENTS; Start 09/28/16 at 22:30 Potassium Chloride 100 ml @ 100 mls/hr PRN Q1HR PRN IV SEE COMMENTS; Start 09/28/16 at 22:30 Magnesium Sulfate/ Dextrose 100 ml @ 25 mls/hr DAILY IV ; Start 09/29/16 at 09: 00; Stop 09/29/16 at 09:00; Status DC Sodium Bicarbonate 50 meq/Sodium Chloride 1,050 ml @ 500 mls/hr Q2H6M PRN IV SEE COMMENTS; Start 09/28/16 at 23:15; Status Cancel Sodium Phosphate 40 mmol/Sodium Chloride 513.3333 ml @ 83.3 mls/hr 1X PRN PRN IV SEE COMMENTS; Start 09/28/16 at 22:30; Stop 09/30/16 at 12:37; Status DC Sodium Phosphate 20 mmol/Dextrose 256.6667 ml @ 62.5 mls/hr 1X PRN PRN IV SEE COMMENTS; Start 09/28/16 at 22:30; Stop 09/30/16 at 12:37; Status DC Sodium Phosphate/ Dextrose 253.3333 ml @ 62.5 mls/hr 1X PRN PRN IV SEE COMMENTS ; Start 09/28/16 at 22:30 Pantoprazole Sodium 40 mg 40 mg DAILYAC IVP Last administered on 09/30/16t 08:42 ; Start 09/29/16 at 07:30; Stop 09/30/16 at 12:37; Status DC Sodium Bicarbonate/ Sodium Chloride (Iv Sodium Chloride 0.45%) 1,050 ml @ 500 mls/hr CONT PRN IV SEE DKA PROTOCOL; Start 09/29/16 at 03:30; Stop 09/29/16 at 13 :40; Status DC Dextrose 25 gm 25 gm STK-MED ONCE IV ; Start 09/29/16 at 06:53; Stop 09/29/16 at 06:54; Status DC Dextrose/Sodium Chloride (Iv D5% - 1/2 NS) 1,000 ml @ 75 mls/hr 1X PRN PRN IV SEE COMMENTS; Start 09/29/16 at 07:15; Stop 09/29/16 at 13:40; Status DC Dextrose 25 gm 1X ONCE IV Last administered on 09/29/16t 08:16; Start 09/29/16 at 07:45; Stop 09/29/16 at 07:46; Status DC Insulin Aspart (Novolog) 0-9 UNITS TIDWMEALS SQ Last administered on 09/30/16 01:13; Start 09/29/16 at 17:00; Stop 09/30/16 at 09:30; Status DC Dextrose 12.5 gm 12.5 gm PRN Q15MIN PRN IV SEE COMMENTS; Start 09/29/16 at 12:45 Sodium Chloride (Iv Sodium Chloride 0.45%) 1,000 ml @ 75 mls/hr [id number] IV Last administered on 09/29/16 17:14; Start 09/29/16 at 13:45; Stop 09/30/16 at 09: 30; Status DC Acetaminophen/ Hydrocodone Bitart (Lortab 5/325) 1 tab PRN Q4HRS PRN PO MODERATE - SEVERE PAIN; Start 09/29/16 at 18:00 Morphine Sulfate 2 mg PRN Q2HR PRN IV PAIN Last administered on 10/01/16 05:20 ; Start 09/29/16 at 18:00 Morphine Sulfate 4 mg PRN Q2HR PRN IV PAIN; Start 09/29/16 at 18:00 Guaifenesin (Robitussin) 200 mg PRN Q4HRS PRN PO COUGH; Start 09/29/16 at 18:00 Insulin Aspart (Novolog) 10 units 1X ONCE SQ Last administered on 09/29/16 22: 00; Start 09/29/16 at 22:00; Stop 09/29/16 at 22:01; Status DC Insulin Aspart (Novolog) 4 units 1X ONCE SQ Last administered on 09/30/16 08: 50; Start 09/30/16 at 08:45; Stop 09/30/16 at 08:47; Status DC Insulin Aspart 0-9 UNITS QIDACHS SQ Last administered on 10/02/16 07:58; Start 09/30/16 at 11:30 Sodium Chloride (Iv Sodium Chloride 0.45%) 1,000 ml @ 125 mls/hr Q8H IV Last administered on 10/02/16 07:51; Start 09/30/16 at 09:30 Insulin Detemir (Levemir) 10 units BID SQ Last administered on 10/02/16 07:58; Start 09/30/16 at 10:00 Albuterol/ Ipratropium (Duoneb) 3 ml RTQID NEB Last administered on 10/02/16 07 :30; Start 09/30/16 at 12:00 Pantoprazole Sodium (Protonix) 40 mg DAILYAC PO Last administered on 10/01/16 08:18; Start 10/01/16 at 07:30; Stop 10/01/16 at 13:26; Status DC Acetaminophen (Tylenol) 650 mg PRN Q6HRS PRN PO MILD PAIN / TEMP; Start at 12:45 Ondansetron HCl (Zofran) 4 mg PRN Q6HRS PRN IV NAUSEA/VOMITING, 1ST CHOICE Last administered on 10/01/16 20:57; Start 09/30/16 at 12:45 Enoxaparin Sodium (Lovenox 40mg Syringe) 40 mg Q24H SQ Last administered on 10/02 07:55; Start 09/30/16 at 13:00 Insulin Human Regular 10 unit 10 unit 1X ONCE IV Last administered on 17:30; Start 09/30/16 at 17:15; Stop 09/30/16 at 17:16; Status DC Promethazine HCl/ Sodium Chloride (Phenergan/Iv Sodium Chloride 0.9% 50ml) 50.25 ml @ 150.75 mls/ hr PRN Q6HRS PRN IV NAUSEA/VOMITING, 2ND CHOICE Last administered on 10/02/16 01:42; Start 09/30/16 at 17:15 Hydralazine HCl (Apresoline) 10 mg PRN Q4HRS PRN IVP ELEVATED BP, SEE COMMENTS Last administered on 10/01/16 20:58; Start 09/30/16 at 21:00 Metoclopramide HCl (Reglan) 10 mg PRN Q6HRS PRN IV NAUSEA/VOMITING, 3RD CHOICE Last administered on 10/02/16 07:02; Start 10/01/16 at 09:30 Pantoprazole Sodium 40 mg 40 mg BIDAC IVP Last administered on 10/02/16 07:02; Start 10/01/16 at 16:30 Amino Acids/ Glycerin/ Electrolytes 1,000 ml @ 50 mls/hr Q20H IV Last administered on 10/02/16 07:51; Start 10/01/16 at 21:00 Potassium Chloride (KCl Premix 10meq) 100 ml @ 100 mls/hr Q1H IV Last administered on 10/02/16t 09:16; Start 10/02/16 at 10:00; Stop 10/02/16 at 13:59 Active Scripts Active Levemir Flextouch (Insulin Detemir) 100 Unit/1 Ml Insuln.pen 15 Units SQ BID Cipro (Ciprofloxacin Hcl) 250 Mg Tablet 750 Mg PO BID 9 Days Reported Ibuprofen 800 Mg Tablet 800 Mg PO PRN Q6HRS PRN Humalog (Insulin Lispro) 100 Unit/1 Ml Cartridge 100 Unit SQ Vitals/I & O Vital Sign - Last 24 Hours 10/01/16 10/01/16 10/01/16 10/01/16 11:00 15:00 15:01 19:00 Temp 98.9 98.9 99.1 98.9 98.9 99.1 Pulse 102 116 114 Resp 20 20 24 B/P 152/99 149/84 170/88 Pulse Ox 96 98 96 O2 Delivery Room Air Room Air Room Air Room Air 10/01/16 10/01/16 10/01/16 10/01/16 19:52 20:22 20:58 23:00 Temp 89.9 89.9 Pulse 114 119 Resp 20 B/P 170/88 141/71 Pulse Ox 98 O2 Delivery Room Air Room Air Room Air O2 Flow Rate 98.0 10/02/16 10/02/16 10/02/16 10/02/16 03:00 07:00 07:30 08:00 Temp 99.4 99.3 99.4 99.3 Pulse 108 112 Resp 20 18 B/P 177/97 159/89 Pulse Ox 98 98 98 O2 Delivery Room Air Room Air Room Air Room Air O2 Flow Rate 98.0 Intake and Output 10/01/16 10/01/16 10/02/16 15:00 23:00 07:00 Intake Total 240 ml 120 ml Output Total 1300 ml 600 ml Balance 240 ml -1300 ml -480 ml Problem List Problems Medical Problems: (1) Acute renal failure Status: Acute (2) Diabetic ketoacidosis Status: Acute Assessment Acute (underlying chronic?) gastroparesis, better. Plan of Care: Continue current Tx, Mgmt Plan of Care Note May need emptying study later. LOUISE AHUMADA MD Oct 02, 2016 09:50
[2016-10-02] MEDS: ONDANSETRON PF 4 MG/2 ML VIAL. IV PRN ×2 (10:38→20:11)
[2016-10-02 11:09] VITALS: BP 140/99
[2016-10-02 14:53] VITALS: BP 159/87
--- NOTE | 2016-10-02 15:10 | PDOC ---
PROGRESS NOTES Assessment Assessment Metabolic encephalopathy. DKA Hyperglycemia, glucose 983 Hypoglycemia, glucose 43 DM, poorly controlled Lactic acidosis. Renal failure, acute likely. Leukocytosis, WBC 28.2 Fatty liver. Nausea Vomiting. Diarrhea Abdominal pain RECOMMENDATIONS/PLAN: Treat DKA Treat medical diseases. Control hyperglycemia and hypoglycemia. OT/PT. HCT: No evidence of cerebral edema, ICH or large infarct. HISTORY OF THE PRESENT ILLNESS: 51-y-old female patient came to the ER of [facility] with complaints of not feeling well, nausea, vomiting, diarrhea, abdominal pain, MS changes, etc. She stated she did not know she had DM but documentation stated she had PMHx of DM. She has not seen PCP for over a year. Her serium glucose lever was 983 in ER. No focalized motor or sensory deficits. PAST MEDICAL HISTORY: Please see above. PAST SURGERY HISTORY: Cataract surgery . ALLERGY: Unknown MEDICATIONS: Refer to [facility] FAMILY HISTORY: CAD DM SOCIAL HISTORY: Lives alone at home. Denies current smoking, drinking, and illicit drug use. REVIEW OF SYSTEMS: Constitutional: No malnutrition, weight loss, cachexia. Head: No recent traumatic brain or head injury. Skin: No edema, or rash. Ear: No infection, tinnitus. Eyes: No vision loss or color blindness. Nose: No bleeding or purulent discharges. Hearing: No hearing decrease. Neck: No injury. Breast: No history of cancer, masses,or discharges. Cardiac: No NM, arrhythmia. Pulmonary: No COPD. GI: No GI ulcer, GI bleeding. Urinary/genital: UTI. Endocrinologic: Diabetes Mellitus, hypothyroidism. Skeletomuscular: No muscular atrophy, deformity. Neurological: see HP. Psychiatric: Denies drug use/abuse. Otherwise, not [id number] review of systems. PHYSICAL EXAMINATION: General appearance is in subacute distress. HEENT: Normocephalic and nontraumatic. Eyes, nose, ears, and throat are unremarkable. Neck is supple. No lymphadenopathy. No bruits are heard over the carotid artery. No crepitus. Cardiovascular: S1, S2, regular rate and rhythm. Pulmonary: Clear to auscultation bilaterally. Abdomen: Bowel sounds are positive. Extremities: No rash, lesions, or edema. No restriction of range of motion NEUROLOGICAL EXAMINATION: Sleepiness but arousable. Not oriented to time, place and person. PERRL. EOMI. CN: no focal findings. Muscle tone: within normal. Muscle strength: 5- DTR: 2 Plantar reflex: Flexor response bilaterally Gait: not examined in bed. Sensory exam: no abnormal findings. No acute cerebellar signs elicited. F-T-N test not examed. Objective Objective Vital Signs Date Time Temp Pulse Resp B/P Pulse Ox O2 Delivery O2 Flow Rate FiO2 10/02/16 14:53 99.0 114 18 159/87 95 Room Air 99.0 10/02/16 08:00 98.0 Intake and Output 10/02/16 07:00 Intake Total 360 ml Output Total 1900 ml Balance -1540 ml Intake Oral 360 ml Output Urine Total 1900 ml # Voids 1 Vitals Signs Vitals VS - Last 72 Hours, by Label Date Time Temp Pulse Resp B/P Pulse Ox O2 Delivery O2 Flow Rate FiO2 10/02/16 14:53 99.0 114 18 159/87 95 Room Air 99.0 10/02/16 11:30 98 Room Air 10/02/16 11:09 99.4 119 18 140/99 98 Room Air 99.4 10/02/16 08:00 Room Air 98.0 10/02/16 07:30 98 Room Air 10/02/16 07:00 99.3 112 18 159/89 98 Room Air 99.3 10/02/16 03:00 99.4 108 20 177/97 98 Room Air 99.4 10/01/16 23:00 89.9 119 20 141/71 Room Air 98.0 89.9 10/01/16 20:58 114 170/88 10/01/16 20:22 Room Air 10/01/16 19:52 98 Room Air 10/01/16 19:00 99.1 114 24 170/88 96 Room Air 99.1 10/01/16 15:01 Room Air 10/01/16 15:00 98.9 116 20 149/84 98 Room Air 98.9 10/01/16 11:00 98.9 102 20 152/99 96 Room Air 98.9 10/01/16 08:19 105 185/95 10/01/16 08:00 Room Air 10/01/16 07:35 98 Room Air 10/01/16 07:00 99.0 105 22 185/95 95 Room Air 99.0 Laboratory Laboratory Laboratory Tests Test 10/01/16 16:43 10/01/16 20:34 10/02/16 05:55 10/02/16 07:45 Glucose (Fingerstick) 165mg/dL (70-99) 198mg/dL (70-99) 253mg/dL (70-99) White Blood Count 8.4x10^3/uL (4.0-11.0) Red Blood Count 4.54x10^6/uL (3.50-5.40) Hemoglobin 12.7g/dL (12.0-15.5) Hematocrit 39.2% (36.0-47.0) Mean Corpuscular Volume 86fL (79-100) Mean Corpuscular Hemoglobin 28pg (25-35) Mean Corpuscular Hemoglobin Concent 32g/dL (31-37) Red Cell Distribution Width 14.6% (11.5-14.5) Platelet Count 245x10^3/uL (140-400) Neutrophils (%) (Auto) 75% (31-73) Lymphocytes (%) (Auto) 17% (24-48) Monocytes (%) (Auto) 7% (0-9) Eosinophils (%) (Auto) 0% (0-3) Basophils (%) (Auto) 0% (0-3) Neutrophils # (Auto) 6.3x10^3uL (1.8-7.7) Lymphocytes # (Auto) 1.5x10^3/uL (1.0-4.8) Monocytes # (Auto) 0.6x10^3/uL (0.0-1.1) Eosinophils # (Auto) 0.0x10^3/uL (0.0-0.7) Basophils # (Auto) 0.0x10^3/uL (0.0-0.2) Sodium Level 132mmol/L (136-145) Potassium Level 3.2mmol/L (3.5-5.1) Chloride Level 96mmol/L (98-107) Carbon Dioxide Level 26mmol/L (21-32) Anion Gap 10 (6-14) Blood Urea Nitrogen 16mg/dL (7-20) Creatinine 0.8mg/dL (0.6-1.0) Estimated GFR (Cockcroft-Gault) 75.9 Glucose Level 255mg/dL (70-99) Calcium Level 8.9mg/dL (8.5-10.1) Test 10/02/16 11:28 Glucose (Fingerstick) 299mg/dL (70-99) Microbiology 09/28/16 Blood Culture - Preliminary, Resulted NO GROWTH AFTER 3 DAYS Medication Medications Current Medications Amino Acids/ Glycerin/ Electrolytes 1,000 ml @ 50 mls/hr Q20H IV Last administered on 10/02/16 07:51; Start 10/01/16 at 21:00 Pantoprazole Sodium 40 mg 40 mg BIDAC IVP Last administered on 10/02/16 07:02; Start 10/01/16 at 16:30 Potassium Chloride (KCl Premix 10meq) 100 ml @ 100 mls/hr Q1H IV Last administered on 10/02/16 13:00; Start 10/02/16 at 10:00; Stop 10/02/16 at 13:59; Status DC Comment Review of Relevant I have reviewed the following items edna (where applicable) has been applied. LEONARDO SANCHEZ MD Oct 02, 2016 15:10
--- NOTE | 2016-10-02 16:02 | PDOC ---
PROGRESS NOTES Chief Complaint Chief Complaint DKA AMS ASSESSMENT AND PLAN: 1. DKA: resolved 2. AMS with 1, metabolic encephalopathy: slowly improving. still lethargic 3. Hyperglycemia: ongoing, poorly controlled. increase Detemir to 15 bid, cont ISS 4. Intractable N/V: suspect gastroparesis. switch Reglan to ATC tid for now 5. Bronchitis: likely viral infection. resolving. treat symptomatically 6. Leukocytosis: resolved 7. SIRS: resolved 8. Prophylaxis: lovenox, PPI Vitals Vitals Vital Signs Date Time Temp Pulse Resp B/P Pulse Ox O2 Delivery O2 Flow Rate FiO2 10/02/16 14:53 99.0 114 18 159/87 95 Room Air 99.0 10/02/16 08:00 98.0 Physical Exam Physical Exam awake, lethargic General: No acute distress Heart: Regular rate Lungs: Clear Abdomen: Normal bowel sounds, No tenderness Extremities: No clubbing, No edema Skin: No rashes Labs LABS Laboratory Tests Test 10/01/16 16:43 10/01/16 20:34 10/02/16 05:55 10/02/16 07:45 Glucose (Fingerstick) 165mg/dL (70-99) 198mg/dL (70-99) 253mg/dL (70-99) White Blood Count 8.4x10^3/uL (4.0-11.0) Red Blood Count 4.54x10^6/uL (3.50-5.40) Hemoglobin 12.7g/dL (12.0-15.5) Hematocrit 39.2% (36.0-47.0) Mean Corpuscular Volume 86fL (79-100) Mean Corpuscular Hemoglobin 28pg (25-35) Mean Corpuscular Hemoglobin Concent 32g/dL (31-37) Red Cell Distribution Width 14.6% (11.5-14.5) Platelet Count 245x10^3/uL (140-400) Neutrophils (%) (Auto) 75% (31-73) Lymphocytes (%) (Auto) 17% (24-48) Monocytes (%) (Auto) 7% (0-9) Eosinophils (%) (Auto) 0% (0-3) Basophils (%) (Auto) 0% (0-3) Neutrophils # (Auto) 6.3x10^3uL (1.8-7.7) Lymphocytes # (Auto) 1.5x10^3/uL (1.0-4.8) Monocytes # (Auto) 0.6x10^3/uL (0.0-1.1) Eosinophils # (Auto) 0.0x10^3/uL (0.0-0.7) Basophils # (Auto) 0.0x10^3/uL (0.0-0.2) Sodium Level 132mmol/L (136-145) Potassium Level 3.2mmol/L (3.5-5.1) Chloride Level 96mmol/L (98-107) Carbon Dioxide Level 26mmol/L (21-32) Anion Gap 10 (6-14) Blood Urea Nitrogen 16mg/dL (7-20) Creatinine 0.8mg/dL (0.6-1.0) Estimated GFR (Cockcroft-Gault) 75.9 Glucose Level 255mg/dL (70-99) Calcium Level 8.9mg/dL (8.5-10.1) Test 10/02/16 11:28 Glucose (Fingerstick) 299mg/dL (70-99) Review of Systems Review of Systems feels nauseous, no pain, no SOB Comment Review of Relevant I have reviewed the following items edna (where applicable) has been applied. Labs Laboratory Tests Test 09/30/16 16:42 09/30/16 20:08 10/01/16 06:20 10/01/16 07:28 Glucose (Fingerstick) 400mg/dL (70-99) 254mg/dL (70-99) 168mg/dL (70-99) White Blood Count 7.0x10^3/uL (4.0-11.0) Red Blood Count 4.57x10^6/uL (3.50-5.40) Hemoglobin 12.8g/dL (12.0-15.5) Hematocrit 39.5% (36.0-47.0) Mean Corpuscular Volume 87fL (79-100) Mean Corpuscular Hemoglobin 28pg (25-35) Mean Corpuscular Hemoglobin Concent 32g/dL (31-37) Red Cell Distribution Width 15.3% (11.5-14.5) Platelet Count 253x10^3/uL (140-400) Neutrophils (%) (Auto) 67% (31-73) Lymphocytes (%) (Auto) 24% (24-48) Monocytes (%) (Auto) 8% (0-9) Eosinophils (%) (Auto) 0% (0-3) Basophils (%) (Auto) 1% (0-3) Neutrophils # (Auto) 4.7x10^3uL (1.8-7.7) Lymphocytes # (Auto) 1.7x10^3/uL (1.0-4.8) Monocytes # (Auto) 0.6x10^3/uL (0.0-1.1) Eosinophils # (Auto) 0.0x10^3/uL (0.0-0.7) Basophils # (Auto) 0.0x10^3/uL (0.0-0.2) Sodium Level 141mmol/L (136-145) Potassium Level 3.6mmol/L (3.5-5.1) Chloride Level 102mmol/L (98-107) Carbon Dioxide Level 29mmol/L (21-32) Anion Gap 10 (6-14) Blood Urea Nitrogen 16mg/dL (7-20) Creatinine 1.0mg/dL (0.6-1.0) Estimated GFR (Cockcroft-Gault) 58.7 Glucose Level 166mg/dL (70-99) Calcium Level 9.2mg/dL (8.5-10.1) Thyroid Stimulating Hormone (TSH) 2.255uIU/mL (0.358-3.74) Test 10/01/16 11:15 10/01/16 16:43 10/01/16 20:34 10/02/16 05:55 Glucose (Fingerstick) 202mg/dL (70-99) 165mg/dL (70-99) 198mg/dL (70-99) White Blood Count 8.4x10^3/uL (4.0-11.0) Red Blood Count 4.54x10^6/uL (3.50-5.40) Hemoglobin 12.7g/dL (12.0-15.5) Hematocrit 39.2% (36.0-47.0) Mean Corpuscular Volume 86fL (79-100) Mean Corpuscular Hemoglobin 28pg (25-35) Mean Corpuscular Hemoglobin Concent 32g/dL (31-37) Red Cell Distribution Width 14.6% (11.5-14.5) Platelet Count 245x10^3/uL (140-400) Neutrophils (%) (Auto) 75% (31-73) Lymphocytes (%) (Auto) 17% (24-48) Monocytes (%) (Auto) 7% (0-9) Eosinophils (%) (Auto) 0% (0-3) Basophils (%) (Auto) 0% (0-3) Neutrophils # (Auto) 6.3x10^3uL (1.8-7.7) Lymphocytes # (Auto) 1.5x10^3/uL (1.0-4.8) Monocytes # (Auto) 0.6x10^3/uL (0.0-1.1) Eosinophils # (Auto) 0.0x10^3/uL (0.0-0.7) Basophils # (Auto) 0.0x10^3/uL (0.0-0.2) Sodium Level 132mmol/L (136-145) Potassium Level 3.2mmol/L (3.5-5.1) Chloride Level 96mmol/L (98-107) Carbon Dioxide Level 26mmol/L (21-32) Anion Gap 10 (6-14) Blood Urea Nitrogen 16mg/dL (7-20) Creatinine 0.8mg/dL (0.6-1.0) Estimated GFR (Cockcroft-Gault) 75.9 Glucose Level 255mg/dL (70-99) Calcium Level 8.9mg/dL (8.5-10.1) Test 10/02/16 07:45 10/02/16 11:28 Glucose (Fingerstick) 253mg/dL (70-99) 299mg/dL (70-99) Laboratory Tests Test 10/01/16 16:43 10/01/16 20:34 10/02/16 05:55 10/02/16 07:45 Glucose (Fingerstick) 165mg/dL (70-99) 198mg/dL (70-99) 253mg/dL (70-99) White Blood Count 8.4x10^3/uL (4.0-11.0) Red Blood Count 4.54x10^6/uL (3.50-5.40) Hemoglobin 12.7g/dL (12.0-15.5) Hematocrit 39.2% (36.0-47.0) Mean Corpuscular Volume 86fL (79-100) Mean Corpuscular Hemoglobin 28pg (25-35) Mean Corpuscular Hemoglobin Concent 32g/dL (31-37) Red Cell Distribution Width 14.6% (11.5-14.5) Platelet Count 245x10^3/uL (140-400) Neutrophils (%) (Auto) 75% (31-73) Lymphocytes (%) (Auto) 17% (24-48) Monocytes (%) (Auto) 7% (0-9) Eosinophils (%) (Auto) 0% (0-3) Basophils (%) (Auto) 0% (0-3) Neutrophils # (Auto) 6.3x10^3uL (1.8-7.7) Lymphocytes # (Auto) 1.5x10^3/uL (1.0-4.8) Monocytes # (Auto) 0.6x10^3/uL (0.0-1.1) Eosinophils # (Auto) 0.0x10^3/uL (0.0-0.7) Basophils # (Auto) 0.0x10^3/uL (0.0-0.2) Sodium Level 132mmol/L (136-145) Potassium Level 3.2mmol/L (3.5-5.1) Chloride Level 96mmol/L (98-107) Carbon Dioxide Level 26mmol/L (21-32) Anion Gap 10 (6-14) Blood Urea Nitrogen 16mg/dL (7-20) Creatinine 0.8mg/dL (0.6-1.0) Estimated GFR (Cockcroft-Gault) 75.9 Glucose Level 255mg/dL (70-99) Calcium Level 8.9mg/dL (8.5-10.1) Test 10/02/16 11:28 Glucose (Fingerstick) 299mg/dL (70-99) Microbiology 09/28/16 Blood Culture - Preliminary, Resulted NO GROWTH AFTER 3 DAYS Medications Current Medications Sodium Chloride 1,000 ml @ 1,000 mls/hr Q1H IV Last administered on 09/28/16 18:27; Start 09/28/16 at 18:03; Stop 09/28/16 at 20:02; Status DC Insulin Human Regular (Novolin R Iv Drip) 150 ml @ 0 mls/hr 1X ONCE IV Last administered on 09/28/16 18:58; Start 09/28/16 at 18:15; Stop 09/29/16 at 13:40; Status DC Ondansetron HCl (Zofran) 4 mg 1X ONCE IV Last administered on 09/28/16 18:20; Start 09/28/16 at 18:30; Stop 09/28/16 at 18:31; Status DC Ondansetron HCl (Zofran) 4 mg PRN Q8HRS PRN IV NAUSEA/VOMITING Last administered on 09/29/16 05:59; Start 09/28/16 at 19:30; Stop 09/29/16 at 19:29; Status DC Fentanyl Citrate (Fentanyl 2ml Vial) 50 mcg PRN Q2HR PRN IV PAIN Last administered on 09/29/16 06:00; Start 09/28/16 at 19:30; Stop 09/29/16 at 13:40; Status DC Acetaminophen 650 mg 650 mg PRN Q4HRS PRN PO FEVER; Start 09/28/16 at 19:30; Stop 09/29/16 at 19:29; Status DC Potassium Chloride 100 ml @ 100 mls/hr PRN Q1HR PRN IV SEE COMMENTS; Start 09/28/16 at 19:30; Stop 09/28/16 at 22:56; Status DC Potassium Chloride 100 ml @ 100 mls/hr PRN Q1HR PRN IV SEE COMMENTS; Start 09/28/16 at 19:30; Stop 09/28/16 at 22:56; Status DC Potassium Chloride 100 ml @ 100 mls/hr PRN Q1HR PRN IV SEE COMMENTS; Start 09/28/16 at 19:30; Stop 09/28/16 at 22:56; Status DC Sodium Chloride 1,000 ml @ 250 mls/hr Q4H IV Last administered on 09/29/16 08: 18; Start 09/28/16 at 20:14; Stop 09/29/16 at 11:05; Status DC Sodium Chloride 1,000 ml @ 500 mls/hr Q2H IV Last administered on 09/29/16 01: 00; Start 09/28/16 at 23:00; Stop 09/29/16 at 09:09; Status DC Sodium Chloride 1,000 ml @ 250 mls/hr Q4H IV Last administered on 09/29/16 08: 17; Start 09/28/16 at 23:00; Stop 09/29/16 at 11:05; Status DC Dextrose/Sodium Chloride 1,000 ml @ 250 mls/hr Q4H IV Last administered on 09/29 11:36; Start 09/28/16 at 23:00; Stop 09/29/16 at 13:40; Status DC Insulin Human Regular 150 unit/ Sodium Chloride 151.5 ml @ 0 mls/hr CONT PRN PRN IV PER PROTOCOL Last administered on 09/29/16 06:04; Start 09/28/16 at 23:00 ; Stop 10/01/16 at 17:17; Status DC Potassium Chloride 100 ml @ 100 mls/hr PRN Q1HR PRN IV SEE COMMENTS; Start 09/28/16 at 22:30 Potassium Chloride 100 ml @ 100 mls/hr PRN Q1HR PRN IV SEE COMMENTS; Start 09/28/16 at 22:30 Magnesium Sulfate/ Dextrose 100 ml @ 25 mls/hr DAILY IV ; Start 09/29/16 at 09: 00; Stop 09/29/16 at 09:00; Status DC Sodium Bicarbonate 50 meq/Sodium Chloride 1,050 ml @ 500 mls/hr Q2H6M PRN IV SEE COMMENTS; Start 09/28/16 at 23:15; Status Cancel Sodium Phosphate 40 mmol/Sodium Chloride 513.3333 ml @ 83.3 mls/hr 1X PRN PRN IV SEE COMMENTS; Start 09/28/16 at 22:30; Stop 09/30/16 at 12:37; Status DC Sodium Phosphate 20 mmol/Dextrose 256.6667 ml @ 62.5 mls/hr 1X PRN PRN IV SEE COMMENTS; Start 09/28/16 at 22:30; Stop 09/30/16 at 12:37; Status DC Sodium Phosphate/ Dextrose 253.3333 ml @ 62.5 mls/hr 1X PRN PRN IV SEE COMMENTS ; Start 09/28/16 at 22:30 Pantoprazole Sodium 40 mg 40 mg DAILYAC IVP Last administered on 09/30/16 08:42 ; Start 09/29/16 at 07:30; Stop 09/30/16 at 12:37; Status DC Sodium Bicarbonate/ Sodium Chloride (Iv Sodium Chloride 0.45%) 1,050 ml @ 500 mls/hr CONT PRN IV SEE DKA PROTOCOL; Start 09/29/16 at 03:30; Stop 09/29/16 at 13 :40; Status DC Dextrose 25 gm 25 gm STK-MED ONCE IV ; Start 09/29/16 at 06:53; Stop 09/29/16 at 06:54; Status DC Dextrose/Sodium Chloride (Iv D5% - 1/2 NS) 1,000 ml @ 75 mls/hr 1X PRN PRN IV SEE COMMENTS; Start 09/29/16 at 07:15; Stop 09/29/16 at 13:40; Status DC Dextrose 25 gm 1X ONCE IV Last administered on 09/29/16 08:16; Start 09/29/16 at 07:45; Stop 09/29/16 at 07:46; Status DC Insulin Aspart (Novolog) 0-9 UNITS TIDWMEALS SQ Last administered on 09/30/16 01:13; Start 09/29/16 at 17:00; Stop 09/30/16 at 09:30; Status DC Dextrose 12.5 gm 12.5 gm PRN Q15MIN PRN IV SEE COMMENTS; Start 09/29/16 at 12:45 Sodium Chloride (Iv Sodium Chloride 0.45%) 1,000 ml @ 75 mls/hr [id number] IV Last administered on 09/29/16 17:14; Start 09/29/16 at 13:45; Stop 09/30/16 at 09: 30; Status DC Acetaminophen/ Hydrocodone Bitart (Lortab 5/325) 1 tab PRN Q4HRS PRN PO MODERATE - SEVERE PAIN; Start 09/29/16 at 18:00 Morphine Sulfate 2 mg PRN Q2HR PRN IV PAIN Last administered on 10/01/16 05:20 ; Start 09/29/16 at 18:00 Morphine Sulfate 4 mg PRN Q2HR PRN IV PAIN; Start 09/29/16 at 18:00 Guaifenesin (Robitussin) 200 mg PRN Q4HRS PRN PO COUGH; Start 09/29/16 at 18:00 Insulin Aspart (Novolog) 10 units 1X ONCE SQ Last administered on 09/29/16 22: 00; Start 09/29/16 at 22:00; Stop 09/29/16 at 22:01; Status DC Insulin Aspart (Novolog) 4 units 1X ONCE SQ Last administered on 09/30/16 08: 50; Start 09/30/16 at 08:45; Stop 09/30/16 at 08:47; Status DC Insulin Aspart 0-9 UNITS QIDACHS SQ Last administered on 10/02/16 11:45; Start 09/30/16 at 11:30 Sodium Chloride (Iv Sodium Chloride 0.45%) 1,000 ml @ 125 mls/hr Q8H IV Last administered on 10/02/16 07:51; Start 09/30/16 at 09:30 Insulin Detemir (Levemir) 10 units BID SQ Last administered on 10/02/16 07:58; Start 09/30/16 at 10:00 Albuterol/ Ipratropium (Duoneb) 3 ml RTQID NEB Last administered on 10/02/16 11 :30; Start 09/30/16 at 12:00 Pantoprazole Sodium (Protonix) 40 mg DAILYAC PO Last administered on 10/01/16 08:18; Start 10/01/16 at 07:30; Stop 10/01/16 at 13:26; Status DC Acetaminophen (Tylenol) 650 mg PRN Q6HRS PRN PO MILD PAIN / TEMP; Start at 12:45 Ondansetron HCl (Zofran) 4 mg PRN Q6HRS PRN IV NAUSEA/VOMITING, 1ST CHOICE Last administered on 10/02/16 10:38; Start 09/30/16 at 12:45 Enoxaparin Sodium (Lovenox 40mg Syringe) 40 mg Q24H SQ Last administered on 10/02 07:55; Start 09/30/16 at 13:00 Insulin Human Regular 10 unit 10 unit 1X ONCE IV Last administered on 17:30; Start 09/30/16 at 17:15; Stop 09/30/16 at 17:16; Status DC Promethazine HCl/ Sodium Chloride (Phenergan/Iv Sodium Chloride 0.9% 50ml) 50.25 ml @ 150.75 mls/ hr PRN Q6HRS PRN IV NAUSEA/VOMITING, 2ND CHOICE Last administered on 10/02/16 15:48; Start 09/30/16 at 17:15 Hydralazine HCl (Apresoline) 10 mg PRN Q4HRS PRN IVP ELEVATED BP, SEE COMMENTS Last administered on 10/01/16 20:58; Start 09/30/16 at 21:00 Metoclopramide HCl (Reglan) 10 mg PRN Q6HRS PRN IV NAUSEA/VOMITING, 3RD CHOICE Last administered on 10/02/16 07:02; Start 10/01/16 at 09:30 Pantoprazole Sodium 40 mg 40 mg BIDAC IVP Last administered on 10/02/16 07:02; Start 10/01/16 at 16:30 Amino Acids/ Glycerin/ Electrolytes 1,000 ml @ 50 mls/hr Q20H IV Last administered on 10/02/16 07:51; Start 10/01/16 at 21:00 Potassium Chloride (KCl Premix 10meq) 100 ml @ 100 mls/hr Q1H IV Last administered on 10/02/16 13:00; Start 10/02/16 at 10:00; Stop 10/02/16 at 13:59; Status DC Active Scripts Active Levemir Flextouch (Insulin Detemir) 100 Unit/1 Ml Insuln.pen 15 Units SQ BID Cipro (Ciprofloxacin Hcl) 250 Mg Tablet 750 Mg PO BID 9 Days Reported Ibuprofen 800 Mg Tablet 800 Mg PO PRN Q6HRS PRN Humalog (Insulin Lispro) 100 Unit/1 Ml Cartridge 100 Unit SQ Vitals/I & O Vital Sign - Last 24 Hours 10/01/16 10/01/16 10/01/16 10/01/16 19:00 19:52 20:22 20:58 Temp 99.1 99.1 Pulse 114 114 Resp 24 B/P 170/88 170/88 Pulse Ox 96 98 O2 Delivery Room Air Room Air Room Air 10/01/16 10/02/16 10/02/16 10/02/16 23:00 03:00 07:00 07:30 Temp 89.9 99.4 99.3 89.9 99.4 99.3 Pulse 119 108 112 Resp 20 20 18 B/P 141/71 177/97 159/89 Pulse Ox 98 98 98 O2 Delivery Room Air Room Air Room Air Room Air O2 Flow Rate 98.0 10/02/16 10/02/16 10/02/16 10/02/16 08:00 11:09 11:30 14:53 Temp 99.4 99.0 99.4 99.0 Pulse 119 114 Resp 18 18 B/P 140/99 159/87 Pulse Ox 98 98 95 O2 Delivery Room Air Room Air Room Air Room Air O2 Flow Rate 98.0 Intake and Output 10/01/16 10/01/16 10/02/16 15:00 23:00 07:00 Intake Total 240 ml 120 ml Output Total 1300 ml 600 ml Balance 240 ml -1300 ml -480 ml MARTITA OROZCO MD Oct 02, 2016 16:02
[2016-10-02 19:00] VITALS: BP 166/92
[2016-10-02] MEDS: HYDROCODONE/APAP 5/325MG TABLET. PO PRN (20:12)
[2016-10-02 23:00] VITALS: BP_SYST 159; BP_SYST 161; BP_DIAS 95
[2016-10-03 03:00] VITALS: BP 167/99
[2016-10-03] MEDS: hydrALAZINE 20 MG/ML VIAL. IVP PRN (03:15)
[2016-10-03] MEDS: ONDANSETRON PF 4 MG/2 ML VIAL. IV PRN ×2 (03:20→22:04)
[2016-10-03] MEDS: AA 3%/ELECTROLYTE-TPN SOLN/GLY 1,000 ML IV SCH ×2 (03:24→22:12)
[2016-10-03] MEDS ORDERED: METOCLOPRAMIDE HCL 10 MG/2 ML VIAL. IV SCH ×2 (06:00→12:00)
[2016-10-03 07:00] VITALS: BP 117/74
[2016-10-03] MEDS: IPRATRPIUM/ALBUTEROL 0.5/2.5MG 3 ML NEBU. NEB SCH ×4 (07:45→20:32)
[2016-10-03] MEDS: PANTOPRAZOLE IV PUSH 40 MG VIAL. IVP SCH ×2 (08:09→17:20)
[2016-10-03] MEDS: INSULIN ASPART 300 UNITS/3 ML INSULN.PEN SQ SCH ×4 (08:16→22:10)
[2016-10-03] MEDS: INSULIN DETEMIR 300 UNITS/3 ML INSULN.PEN. SQ SCH ×3 (08:17→22:09)
[2016-10-03] MEDS ORDERED: INSULIN DETEMIR 300 UNITS/3 ML INSULN.PEN. SQ SCH (09:00)
[2016-10-03] MEDS: PROMETHAZINE 6.25 MG in IV NORMAL SALINE 50ML 50 ML IV PRN (09:25)
--- NOTE | 2016-10-03 10:05 | PDOC ---
G I PROGRESS NOTE Subjective Feeling some better. Apparently tolerating some clears. Physical Exam Lungs clear. RRR Abdomen soft, not distended nor tender. No "succussion splash". Review of Relevant I have reviewed the following items edna (where applicable) has been applied. Labs Laboratory Tests Test 10/01/16 11:15 10/01/16 16:43 10/01/16 20:34 10/02/16 05:55 Glucose (Fingerstick) 202mg/dL (70-99) 165mg/dL (70-99) 198mg/dL (70-99) White Blood Count 8.4x10^3/uL (4.0-11.0) Red Blood Count 4.54x10^6/uL (3.50-5.40) Hemoglobin 12.7g/dL (12.0-15.5) Hematocrit 39.2% (36.0-47.0) Mean Corpuscular Volume 86fL (79-100) Mean Corpuscular Hemoglobin 28pg (25-35) Mean Corpuscular Hemoglobin Concent 32g/dL (31-37) Red Cell Distribution Width 14.6% (11.5-14.5) Platelet Count 245x10^3/uL (140-400) Neutrophils (%) (Auto) 75% (31-73) Lymphocytes (%) (Auto) 17% (24-48) Monocytes (%) (Auto) 7% (0-9) Eosinophils (%) (Auto) 0% (0-3) Basophils (%) (Auto) 0% (0-3) Neutrophils # (Auto) 6.3x10^3uL (1.8-7.7) Lymphocytes # (Auto) 1.5x10^3/uL (1.0-4.8) Monocytes # (Auto) 0.6x10^3/uL (0.0-1.1) Eosinophils # (Auto) 0.0x10^3/uL (0.0-0.7) Basophils # (Auto) 0.0x10^3/uL (0.0-0.2) Sodium Level 132mmol/L (136-145) Potassium Level 3.2mmol/L (3.5-5.1) Chloride Level 96mmol/L (98-107) Carbon Dioxide Level 26mmol/L (21-32) Anion Gap 10 (6-14) Blood Urea Nitrogen 16mg/dL (7-20) Creatinine 0.8mg/dL (0.6-1.0) Estimated GFR (Cockcroft-Gault) 75.9 Glucose Level 255mg/dL (70-99) Calcium Level 8.9mg/dL (8.5-10.1) Test 10/02/16 07:45 10/02/16 11:28 10/02/16 16:34 10/02/16 20:55 Glucose (Fingerstick) 253mg/dL (70-99) 299mg/dL (70-99) 297mg/dL (70-99) 321mg/dL (70-99) Test 10/03/16 07:56 Glucose (Fingerstick) 340mg/dL (70-99) Laboratory Tests Test 10/02/16 11:28 10/02/16 16:34 10/02/16 20:55 10/03/16 07:56 Glucose (Fingerstick) 299mg/dL (70-99) 297mg/dL (70-99) 321mg/dL (70-99) 340mg/dL (70-99) Microbiology 09/28/16 Blood Culture - Preliminary, Resulted NO GROWTH AFTER 4 DAYS Still mostly hyperglycemic; DKA over. Medications Current Medications Sodium Chloride 1,000 ml @ 1,000 mls/hr Q1H IV Last administered on 09/28/16 18:27; Start 09/28/16 at 18:03; Stop 09/28/16 at 20:02; Status DC Insulin Human Regular (Novolin R Iv Drip) 150 ml @ 0 mls/hr 1X ONCE IV Last administered on 09/28/16 18:58; Start 09/28/16 at 18:15; Stop 09/29/16 at 13:40; Status DC Ondansetron HCl (Zofran) 4 mg 1X ONCE IV Last administered on 09/28/16 18:20; Start 09/28/16 at 18:30; Stop 09/28/16 at 18:31; Status DC Ondansetron HCl (Zofran) 4 mg PRN Q8HRS PRN IV NAUSEA/VOMITING Last administered on 09/29/16 05:59; Start 09/28/16 at 19:30; Stop 09/29/16 at 19:29; Status DC Fentanyl Citrate (Fentanyl 2ml Vial) 50 mcg PRN Q2HR PRN IV PAIN Last administered on 09/29/16 06:00; Start 09/28/16 at 19:30; Stop 09/29/16 at 13:40; Status DC Acetaminophen 650 mg 650 mg PRN Q4HRS PRN PO FEVER; Start 09/28/16 at 19:30; Stop 09/29/16 at 19:29; Status DC Potassium Chloride 100 ml @ 100 mls/hr PRN Q1HR PRN IV SEE COMMENTS; Start 09/28/16 at 19:30; Stop 09/28/16 at 22:56; Status DC Potassium Chloride 100 ml @ 100 mls/hr PRN Q1HR PRN IV SEE COMMENTS; Start 09/28/16 at 19:30; Stop 09/28/16 at 22:56; Status DC Potassium Chloride 100 ml @ 100 mls/hr PRN Q1HR PRN IV SEE COMMENTS; Start 09/28/16 at 19:30; Stop 09/28/16 at 22:56; Status DC Sodium Chloride 1,000 ml @ 250 mls/hr Q4H IV Last administered on 09/29/16 08: 18; Start 09/28/16 at 20:14; Stop 09/29/16 at 11:05; Status DC Sodium Chloride 1,000 ml @ 500 mls/hr Q2H IV Last administered on 09/29/16 01: 00; Start 09/28/16 at 23:00; Stop 09/29/16 at 09:09; Status DC Sodium Chloride 1,000 ml @ 250 mls/hr Q4H IV Last administered on 09/29/16 08: 17; Start 09/28/16 at 23:00; Stop 09/29/16 at 11:05; Status DC Dextrose/Sodium Chloride 1,000 ml @ 250 mls/hr Q4H IV Last administered on 09/29 11:36; Start 09/28/16 at 23:00; Stop 09/29/16 at 13:40; Status DC Insulin Human Regular 150 unit/ Sodium Chloride 151.5 ml @ 0 mls/hr CONT PRN PRN IV PER PROTOCOL Last administered on 09/29/16 06:04; Start 09/28/16 at 23:00 ; Stop 10/01/16 at 17:17; Status DC Potassium Chloride 100 ml @ 100 mls/hr PRN Q1HR PRN IV SEE COMMENTS; Start 09/28/16 at 22:30; Stop 10/02/16 at 21:41; Status DC Potassium Chloride 100 ml @ 100 mls/hr PRN Q1HR PRN IV SEE COMMENTS; Start 09/28/16 at 22:30; Stop 10/02/16 at 21:41; Status DC Magnesium Sulfate/ Dextrose 100 ml @ 25 mls/hr DAILY IV ; Start 09/29/16 at 09: 00; Stop 09/29/16 at 09:00; Status DC Sodium Bicarbonate 50 meq/Sodium Chloride 1,050 ml @ 500 mls/hr Q2H6M PRN IV SEE COMMENTS; Start 09/28/16 at 23:15; Status Cancel Sodium Phosphate 40 mmol/Sodium Chloride 513.3333 ml @ 83.3 mls/hr 1X PRN PRN IV SEE COMMENTS; Start 09/28/16 at 22:30; Stop 09/30/16 at 12:37; Status DC Sodium Phosphate 20 mmol/Dextrose 256.6667 ml @ 62.5 mls/hr 1X PRN PRN IV SEE COMMENTS; Start 09/28/16 at 22:30; Stop 09/30/16 at 12:37; Status DC Sodium Phosphate/ Dextrose 253.3333 ml @ 62.5 mls/hr 1X PRN PRN IV SEE COMMENTS ; Start 09/28/16 at 22:30; Stop 10/02/16 at 21:41; Status DC Pantoprazole Sodium 40 mg 40 mg DAILYAC IVP Last administered on 09/30/16t 08:42 ; Start 09/29/16 at 07:30; Stop 09/30/16 at 12:37; Status DC Sodium Bicarbonate/ Sodium Chloride (Iv Sodium Chloride 0.45%) 1,050 ml @ 500 mls/hr CONT PRN IV SEE DKA PROTOCOL; Start 09/29/16 at 03:30; Stop 09/29/16 at 13 :40; Status DC Dextrose 25 gm 25 gm STK-MED ONCE IV ; Start 09/29/16 at 06:53; Stop 09/29/16 at 06:54; Status DC Dextrose/Sodium Chloride (Iv D5% - 1/2 NS) 1,000 ml @ 75 mls/hr 1X PRN PRN IV SEE COMMENTS; Start 09/29/16 at 07:15; Stop 09/29/16 at 13:40; Status DC Dextrose 25 gm 1X ONCE IV Last administered on 09/29/16 08:16; Start 09/29/16 at 07:45; Stop 09/29/16 at 07:46; Status DC Insulin Aspart (Novolog) 0-9 UNITS TIDWMEALS SQ Last administered on 09/30/16 01:13; Start 09/29/16 at 17:00; Stop 09/30/16 at 09:30; Status DC Dextrose 12.5 gm 12.5 gm PRN Q15MIN PRN IV SEE COMMENTS; Start 09/29/16 at 12:45 Sodium Chloride (Iv Sodium Chloride 0.45%) 1,000 ml @ 75 mls/hr [id number] IV Last administered on 09/29/16 17:14; Start 09/29/16 at 13:45; Stop 09/30/16 at 09: 30; Status DC Acetaminophen/ Hydrocodone Bitart (Lortab 5/325) 1 tab PRN Q4HRS PRN PO MODERATE - SEVERE PAIN Last administered on 10/02/16 20:12; Start 09/29/16 at 18: 00 Morphine Sulfate 2 mg PRN Q2HR PRN IV PAIN Last administered on 10/01/16 05:20 ; Start 09/29/16 at 18:00; Stop 10/02/16 at 21:41; Status DC Morphine Sulfate 4 mg PRN Q2HR PRN IV PAIN; Start 09/29/16 at 18:00; Stop at 21:41; Status DC Guaifenesin (Robitussin) 200 mg PRN Q4HRS PRN PO COUGH; Start 09/29/16 at 18:00 Insulin Aspart (Novolog) 10 units 1X ONCE SQ Last administered on 09/29/16 22: 00; Start 09/29/16 at 22:00; Stop 09/29/16 at 22:01; Status DC Insulin Aspart (Novolog) 4 units 1X ONCE SQ Last administered on 09/30/16 08: 50; Start 09/30/16 at 08:45; Stop 09/30/16 at 08:47; Status DC Insulin Aspart 0-9 UNITS QIDACHS SQ Last administered on 10/03/16 08:16; Start 09/30/16 at 11:30 Sodium Chloride (Iv Sodium Chloride 0.45%) 1,000 ml @ 125 mls/hr Q8H IV Last administered on 10/02/16 20:11; Start 09/30/16 at 09:30; Stop 10/02/16 at 21:41; Status DC Insulin Detemir (Levemir) 10 units BID SQ Last administered on 10/02/16 07:58; Start 09/30/16 at 10:00; Stop 10/02/16 at 21:42; Status DC Albuterol/ Ipratropium (Duoneb) 3 ml RTQID NEB Last administered on 10/03/16 07 :45; Start 09/30/16 at 12:00 Pantoprazole Sodium (Protonix) 40 mg DAILYAC PO Last administered on 10/01/16 08:18; Start 10/01/16 at 07:30; Stop 10/01/16 at 13:26; Status DC Acetaminophen (Tylenol) 650 mg PRN Q6HRS PRN PO MILD PAIN / TEMP; Start at 12:45 Ondansetron HCl (Zofran) 4 mg PRN Q6HRS PRN IV NAUSEA/VOMITING, 1ST CHOICE Last administered on 10/03/16 03:20; Start 09/30/16 at 12:45 Enoxaparin Sodium (Lovenox 40mg Syringe) 40 mg Q24H SQ Last administered on 10/02 07:55; Start 09/30/16 at 13:00 Insulin Human Regular 10 unit 10 unit 1X ONCE IV Last administered on 17:30; Start 09/30/16 at 17:15; Stop 09/30/16 at 17:16; Status DC Promethazine HCl/ Sodium Chloride (Phenergan/Iv Sodium Chloride 0.9% 50ml) 50.25 ml @ 150.75 mls/ hr PRN Q6HRS PRN IV NAUSEA/VOMITING, 2ND CHOICE Last administered on 10/03/16 09:25; Start 09/30/16 at 17:15 Hydralazine HCl (Apresoline) 10 mg PRN Q4HRS PRN IVP ELEVATED BP, SEE COMMENTS Last administered on 10/03/16 03:15; Start 09/30/16 at 21:00 Metoclopramide HCl (Reglan) 10 mg PRN Q6HRS PRN IV NAUSEA/VOMITING, 3RD CHOICE Last administered on 10/02/16 17:01; Start 10/01/16 at 09:30; Stop 10/02/16 at 22: 00; Status DC Pantoprazole Sodium 40 mg 40 mg BIDAC IVP Last administered on 10/03/16 08:09; Start 10/01/16 at 16:30 Amino Acids/ Glycerin/ Electrolytes 1,000 ml @ 50 mls/hr Q20H IV Last administered on 10/03/16 03:24; Start 10/01/16 at 21:00 Potassium Chloride (KCl Premix 10meq) 100 ml @ 100 mls/hr Q1H IV Last administered on 10/02/16 13:00; Start 10/02/16 at 10:00; Stop 10/02/16 at 13:59; Status DC Insulin Detemir (Levemir) 15 units BID SQ Last administered on 10/02/16 23:03; Start 10/03/16 at 09:00; Stop 10/03/16 at 09:00; Status DC Metoclopramide HCl (Reglan) 10 mg Q8HRS IV Last administered on 10/03/16 05:31 ; Start 10/03/16 at 06:00; Stop 10/03/16 at 08:53; Status DC Insulin Detemir (Levemir) 15 units BID SQ Last administered on 10/03/16 08:17; Start 10/03/16 at 08:00 Metoclopramide HCl (Reglan) 10 mg Q6HRS IV ; Start 10/03/16 at 12:00; Stop at 12:00; Status DC Metoclopramide HCl (Reglan) 10 mg Q6HRS IV ; Start 10/03/16 at 12:00 Active Scripts Active Levemir Flextouch (Insulin Detemir) 100 Unit/1 Ml Insuln.pen 15 Units SQ BID Cipro (Ciprofloxacin Hcl) 250 Mg Tablet 750 Mg PO BID 9 Days Reported Ibuprofen 800 Mg Tablet 800 Mg PO PRN Q6HRS PRN Humalog (Insulin Lispro) 100 Unit/1 Ml Cartridge 100 Unit SQ Vitals/I & O Vital Sign - Last 24 Hours 10/02/16 10/02/16 10/02/16 10/02/16 11:09 11:30 14:53 16:23 Temp 99.4 99.0 99.4 99.0 Pulse 119 114 Resp 18 18 B/P 140/99 159/87 Pulse Ox 98 98 95 98 O2 Delivery Room Air Room Air Room Air Room Air 10/02/16 10/02/16 10/02/16 10/03/16 19:00 20:12 23:00 03:00 Temp 98.8 97.9 98.7 98.8 97.9 98.7 Pulse 109 106 Resp 20 18 18 20 B/P 166/92 159/95 167/99 Pulse Ox 97 98 90 O2 Delivery Room Air Room Air Room Air 10/03/16 10/03/16 10/03/16 10/03/16 03:15 07:00 07:46 08:00 Temp 98.2 98.2 Pulse 106 122 Resp 16 B/P 167/99 117/74 Pulse Ox 99 95 O2 Delivery Room Air Room Air Room Air Intake and Output 10/02/16 10/02/16 10/03/16 15:00 23:00 07:00 Intake Total 120 ml 430 ml Output Total 550 ml 1350 ml Balance -430 ml 430 ml -1350 ml Problem List Problems Medical Problems: (1) Acute renal failure Status: Acute (2) Diabetic ketoacidosis Status: Acute Assessment Nausea and vomiting, likely from acute gastroparesis with DKA. Not sure she understands her diabetes well; need education? Plan of Care Note Increased Reglan to q 6 hours from q 8. Really only 6-hour duration of action. Once clearly stable sugar-lloyd, trial off prokinetic. LOUISE AHUMADA MD Oct 03, 2016 10:05
[2016-10-03 11:00] VITALS: BP 120/73
[2016-10-03] MEDS: METOCLOPRAMIDE HCL 10 MG/2 ML VIAL. IV SCH ×2 (11:47→17:20)
[2016-10-03] MEDS: ENOXAPARIN 40 MG/0.4 ML DISP.SYRIN. SQ SCH (14:17)
[2016-10-03 15:20] VITALS: BP 116/69
--- NOTE | 2016-10-03 15:28 | PDOC ---
PROGRESS NOTES Assessment Assessment Metabolic encephalopathy. DKA Hyperglycemia, glucose 983 Hypoglycemia, glucose 43 DM, poorly controlled Lactic acidosis. Renal failure, acute likely. Leukocytosis, WBC 28.2 Fatty liver. Nausea Vomiting. Diarrhea Abdominal pain RECOMMENDATIONS/PLAN: Treat DKA Treat medical diseases. Control hyperglycemia and hypoglycemia. OT/PT. HCT: No evidence of cerebral edema, ICH or large infarct. HISTORY OF THE PRESENT ILLNESS: 51-y-old female patient came to the ER of [facility] with complaints of not feeling well, nausea, vomiting, diarrhea, abdominal pain, MS changes, etc. She stated she did not know she had DM but documentation stated she had PMHx of DM. She has not seen PCP for over a year. Her glucose lever was 983 in ER. No focalized motor or sensory deficits. Her mentation has significantly improved since 10/02. PAST MEDICAL HISTORY: Please see above. PAST SURGERY HISTORY: Cataract surgery . ALLERGY: Unknown MEDICATIONS: Refer to [facility] FAMILY HISTORY: CAD DM SOCIAL HISTORY: Lives alone at home. Denies current smoking, drinking, and illicit drug use. REVIEW OF SYSTEMS: Constitutional: No malnutrition, weight loss, cachexia. Head: No recent traumatic brain or head injury. Skin: No edema, or rash. Ear: No infection, tinnitus. Eyes: No vision loss or color blindness. Nose: No bleeding or purulent discharges. Hearing: No hearing decrease. Neck: No injury. Breast: No history of cancer, masses,or discharges. Cardiac: No TN, arrhythmia. Pulmonary: No COPD. GI: No GI ulcer, GI bleeding. Urinary/genital: UTI. Endocrinologic: Diabetes Mellitus, hypothyroidism. Skeletomuscular: No muscular atrophy, deformity. Neurological: see HP. Psychiatric: Denies drug use/abuse. Otherwise, not [id number] review of systems. PHYSICAL EXAMINATION: General appearance is in subacute distress. HEENT: Normocephalic and nontraumatic. Eyes, nose, ears, and throat are unremarkable. Neck is supple. No lymphadenopathy. No bruits are heard over the carotid artery. No crepitus. Cardiovascular: S1, S2, regular rate and rhythm. Pulmonary: Clear to auscultation bilaterally. Abdomen: Bowel sounds are positive. Extremities: No rash, lesions, or edema. No restriction of range of motion NEUROLOGICAL EXAMINATION: Mildly sleepiness. Not oriented to time, but knows place and person. PERRL. EOMI. CN: no focal findings. Muscle tone: within normal. Muscle strength: 5- DTR: 2 Plantar reflex: Flexor response bilaterally Gait: not examined in bed. Sensory exam: no abnormal findings. No acute cerebellar signs elicited. F-T-N test grossly fine. Objective Objective Vital Signs Date Time Temp Pulse Resp B/P Pulse Ox O2 Delivery O2 Flow Rate FiO2 10/03/16 12:04 98 Room Air 10/03/16 11:00 98.0 116 18 120/73 98.0 10/02/16 08:00 98.0 Intake and Output 10/03/16 07:00 Intake Total 550 ml Output Total 1900 ml Balance -1350 ml Intake Oral 500 ml IV Total 50 ml Output Urine Total 1900 ml # Voids 2 Vitals Signs Vitals VS - Last 72 Hours, by Label Date Time Temp Pulse Resp B/P Pulse Ox O2 Delivery O2 Flow Rate FiO2 10/03/16 12:04 98 Room Air 10/03/16 11:00 98.0 116 18 120/73 98 Room Air 98.0 10/03/16 08:00 Room Air 10/03/16 07:46 95 Room Air 10/03/16 07:00 98.2 122 16 117/74 99 Room Air 98.2 10/03/16 03:15 106 167/99 10/03/16 03:00 98.7 106 20 167/99 90 Room Air 98.7 10/02/16 23:00 97.9 109 18 159/95 98 Room Air 97.9 10/02/16 20:12 18 Room Air 10/02/16 19:00 98.8 20 166/92 97 98.8 10/02/16 16:23 98 Room Air 10/02/16 14:53 99.0 114 18 159/87 95 Room Air 99.0 10/02/16 11:30 98 Room Air 10/02/16 11:09 99.4 119 18 140/99 98 Room Air 99.4 10/02/16 08:00 Room Air 98.0 10/02/16 07:30 98 Room Air 10/02/16 07:00 99.3 112 18 159/89 98 Room Air 99.3 Laboratory Laboratory Laboratory Tests Test 10/02/16 16:34 10/02/16 20:55 10/03/16 07:56 10/03/16 11:23 Glucose (Fingerstick) 297mg/dL (70-99) 321mg/dL (70-99) 340mg/dL (70-99) 217mg/dL (70-99) Microbiology 09/28/16 Blood Culture - Preliminary, Resulted NO GROWTH AFTER 4 DAYS Medication Medications Current Medications Insulin Detemir (Levemir) 15 units BID SQ Last administered on 10/03/16 08:17; Start 10/03/16 at 08:00 Insulin Detemir (Levemir) 15 units BID SQ Last administered on 10/02/16 23:03; Start 10/03/16 at 09:00; Stop 10/03/16 at 09:00; Status DC Metoclopramide HCl (Reglan) 10 mg Q6HRS IV ; Start 10/03/16 at 12:00; Stop at 12:00; Status DC Metoclopramide HCl (Reglan) 10 mg Q6HRS IV Last administered on 10/03/16 11:47 ; Start 10/03/16 at 12:00 Metoclopramide HCl (Reglan) 10 mg Q8HRS IV Last administered on 10/03/16 05:31 ; Start 10/03/16 at 06:00; Stop 10/03/16 at 08:53; Status DC Comment Review of Relevant I have reviewed the following items edna (where applicable) has been applied. LEONARDO SANCHEZ MD Oct 03, 2016 15:28
--- NOTE | 2016-10-03 16:02 | PDOC ---
PROGRESS NOTES Chief Complaint Chief Complaint DKA AMS ASSESSMENT AND PLAN: 1. DKA: resolved 2. AMS with 1, metabolic encephalopathy: much improved, finally 3. Hyperglycemia: ongoing, poorly controlled. increase Detemir stepwise to now 20 bid, cont ISS 4. Intractable N/V: improving, not resolved. suspect gastroparesis. increase Reglan to ATC qid for now a per Dr Phipps 5. Bronchitis: likely viral infection. resolving. treat symptomatically 6. Leukocytosis: resolved 7. SIRS: resolved 8. Prophylaxis: lovenox, PPI Vitals Vitals Vital Signs Date Time Temp Pulse Resp B/P Pulse Ox O2 Delivery O2 Flow Rate FiO2 10/03/16 15:20 98.2 119 16 116/69 95 Room Air 98.2 10/02/16 08:00 98.0 Physical Exam General: Alert, No acute distress Heart: Regular rate Lungs: Clear Abdomen: Normal bowel sounds, No tenderness Extremities: No clubbing, No edema Skin: No rashes Labs LABS Laboratory Tests Test 10/02/16 16:34 10/02/16 20:55 10/03/16 07:56 10/03/16 11:23 Glucose (Fingerstick) 297mg/dL (70-99) 321mg/dL (70-99) 340mg/dL (70-99) 217mg/dL (70-99) Review of Systems Review of Systems feels much better, still with nausea, but vomiting has resolved. Comment Review of Relevant I have reviewed the following items edna (where applicable) has been applied. Labs Laboratory Tests Test 10/01/16 16:43 10/01/16 20:34 10/02/16 05:55 10/02/16 07:45 Glucose (Fingerstick) 165mg/dL (70-99) 198mg/dL (70-99) 253mg/dL (70-99) White Blood Count 8.4x10^3/uL (4.0-11.0) Red Blood Count 4.54x10^6/uL (3.50-5.40) Hemoglobin 12.7g/dL (12.0-15.5) Hematocrit 39.2% (36.0-47.0) Mean Corpuscular Volume 86fL (79-100) Mean Corpuscular Hemoglobin 28pg (25-35) Mean Corpuscular Hemoglobin Concent 32g/dL (31-37) Red Cell Distribution Width 14.6% (11.5-14.5) Platelet Count 245x10^3/uL (140-400) Neutrophils (%) (Auto) 75% (31-73) Lymphocytes (%) (Auto) 17% (24-48) Monocytes (%) (Auto) 7% (0-9) Eosinophils (%) (Auto) 0% (0-3) Basophils (%) (Auto) 0% (0-3) Neutrophils # (Auto) 6.3x10^3uL (1.8-7.7) Lymphocytes # (Auto) 1.5x10^3/uL (1.0-4.8) Monocytes # (Auto) 0.6x10^3/uL (0.0-1.1) Eosinophils # (Auto) 0.0x10^3/uL (0.0-0.7) Basophils # (Auto) 0.0x10^3/uL (0.0-0.2) Sodium Level 132mmol/L (136-145) Potassium Level 3.2mmol/L (3.5-5.1) Chloride Level 96mmol/L (98-107) Carbon Dioxide Level 26mmol/L (21-32) Anion Gap 10 (6-14) Blood Urea Nitrogen 16mg/dL (7-20) Creatinine 0.8mg/dL (0.6-1.0) Estimated GFR (Cockcroft-Gault) 75.9 Glucose Level 255mg/dL (70-99) Calcium Level 8.9mg/dL (8.5-10.1) Test 10/02/16 11:28 10/02/16 16:34 10/02/16 20:55 10/03/16 07:56 Glucose (Fingerstick) 299mg/dL (70-99) 297mg/dL (70-99) 321mg/dL (70-99) 340mg/dL (70-99) Test 10/03/16 11:23 Glucose (Fingerstick) 217mg/dL (70-99) Laboratory Tests Test 10/02/16 16:34 10/02/16 20:55 10/03/16 07:56 10/03/16 11:23 Glucose (Fingerstick) 297mg/dL (70-99) 321mg/dL (70-99) 340mg/dL (70-99) 217mg/dL (70-99) Microbiology 09/28/16 Blood Culture - Preliminary, Resulted NO GROWTH AFTER 4 DAYS Medications Current Medications Sodium Chloride 1,000 ml @ 1,000 mls/hr Q1H IV Last administered on 09/28/16 18:27; Start 09/28/16 at 18:03; Stop 09/28/16 at 20:02; Status DC Insulin Human Regular (Novolin R Iv Drip) 150 ml @ 0 mls/hr 1X ONCE IV Last administered on 09/28/16 18:58; Start 09/28/16 at 18:15; Stop 09/29/16 at 13:40; Status DC Ondansetron HCl (Zofran) 4 mg 1X ONCE IV Last administered on 09/28/16 18:20; Start 09/28/16 at 18:30; Stop 09/28/16 at 18:31; Status DC Ondansetron HCl (Zofran) 4 mg PRN Q8HRS PRN IV NAUSEA/VOMITING Last administered on 09/29/16 05:59; Start 09/28/16 at 19:30; Stop 09/29/16 at 19:29; Status DC Fentanyl Citrate (Fentanyl 2ml Vial) 50 mcg PRN Q2HR PRN IV PAIN Last administered on 09/29/16 06:00; Start 09/28/16 at 19:30; Stop 09/29/16 at 13:40; Status DC Acetaminophen 650 mg 650 mg PRN Q4HRS PRN PO FEVER; Start 09/28/16 at 19:30; Stop 09/29/16 at 19:29; Status DC Potassium Chloride 100 ml @ 100 mls/hr PRN Q1HR PRN IV SEE COMMENTS; Start 09/28/16 at 19:30; Stop 09/28/16 at 22:56; Status DC Potassium Chloride 100 ml @ 100 mls/hr PRN Q1HR PRN IV SEE COMMENTS; Start 09/28/16 at 19:30; Stop 09/28/16 at 22:56; Status DC Potassium Chloride 100 ml @ 100 mls/hr PRN Q1HR PRN IV SEE COMMENTS; Start 09/28/16 at 19:30; Stop 09/28/16 at 22:56; Status DC Sodium Chloride 1,000 ml @ 250 mls/hr Q4H IV Last administered on 09/29/16 08: 18; Start 09/28/16 at 20:14; Stop 09/29/16 at 11:05; Status DC Sodium Chloride 1,000 ml @ 500 mls/hr Q2H IV Last administered on 09/29/16 01: 00; Start 09/28/16 at 23:00; Stop 09/29/16 at 09:09; Status DC Sodium Chloride 1,000 ml @ 250 mls/hr Q4H IV Last administered on 09/29/16 08: 17; Start 09/28/16 at 23:00; Stop 09/29/16 at 11:05; Status DC Dextrose/Sodium Chloride 1,000 ml @ 250 mls/hr Q4H IV Last administered on 09/29 11:36; Start 09/28/16 at 23:00; Stop 09/29/16 at 13:40; Status DC Insulin Human Regular 150 unit/ Sodium Chloride 151.5 ml @ 0 mls/hr CONT PRN PRN IV PER PROTOCOL Last administered on 09/29/16 06:04; Start 09/28/16 at 23:00 ; Stop 10/01/16 at 17:17; Status DC Potassium Chloride 100 ml @ 100 mls/hr PRN Q1HR PRN IV SEE COMMENTS; Start 09/28/16 at 22:30; Stop 10/02/16 at 21:41; Status DC Potassium Chloride 100 ml @ 100 mls/hr PRN Q1HR PRN IV SEE COMMENTS; Start 09/28/16 at 22:30; Stop 10/02/16 at 21:41; Status DC Magnesium Sulfate/ Dextrose 100 ml @ 25 mls/hr DAILY IV ; Start 09/29/16 at 09: 00; Stop 09/29/16 at 09:00; Status DC Sodium Bicarbonate 50 meq/Sodium Chloride 1,050 ml @ 500 mls/hr Q2H6M PRN IV SEE COMMENTS; Start 09/28/16 at 23:15; Status Cancel Sodium Phosphate 40 mmol/Sodium Chloride 513.3333 ml @ 83.3 mls/hr 1X PRN PRN IV SEE COMMENTS; Start 09/28/16 at 22:30; Stop 09/30/16 at 12:37; Status DC Sodium Phosphate 20 mmol/Dextrose 256.6667 ml @ 62.5 mls/hr 1X PRN PRN IV SEE COMMENTS; Start 09/28/16 at 22:30; Stop 09/30/16 at 12:37; Status DC Sodium Phosphate/ Dextrose 253.3333 ml @ 62.5 mls/hr 1X PRN PRN IV SEE COMMENTS ; Start 09/28/16 at 22:30; Stop 10/02/16 at 21:41; Status DC Pantoprazole Sodium 40 mg 40 mg DAILYAC IVP Last administered on 09/30/16 08:42 ; Start 09/29/16 at 07:30; Stop 09/30/16 at 12:37; Status DC Sodium Bicarbonate/ Sodium Chloride (Iv Sodium Chloride 0.45%) 1,050 ml @ 500 mls/hr CONT PRN IV SEE DKA PROTOCOL; Start 09/29/16 at 03:30; Stop 09/29/16 at 13 :40; Status DC Dextrose 25 gm 25 gm STK-MED ONCE IV ; Start 09/29/16 at 06:53; Stop 09/29/16 at 06:54; Status DC Dextrose/Sodium Chloride (Iv D5% - 1/2 NS) 1,000 ml @ 75 mls/hr 1X PRN PRN IV SEE COMMENTS; Start 09/29/16 at 07:15; Stop 09/29/16 at 13:40; Status DC Dextrose 25 gm 1X ONCE IV Last administered on 09/29/16 08:16; Start 09/29/16 at 07:45; Stop 09/29/16 at 07:46; Status DC Insulin Aspart (Novolog) 0-9 UNITS TIDWMEALS SQ Last administered on 09/30/16 01:13; Start 09/29/16 at 17:00; Stop 09/30/16 at 09:30; Status DC Dextrose 12.5 gm 12.5 gm PRN Q15MIN PRN IV SEE COMMENTS; Start 09/29/16 at 12:45 Sodium Chloride (Iv Sodium Chloride 0.45%) 1,000 ml @ 75 mls/hr [id number] IV Last administered on 09/29/16 17:14; Start 09/29/16 at 13:45; Stop 09/30/16 at 09: 30; Status DC Acetaminophen/ Hydrocodone Bitart (Lortab 5/325) 1 tab PRN Q4HRS PRN PO MODERATE - SEVERE PAIN Last administered on 10/02/16 20:12; Start 09/29/16 at 18: 00 Morphine Sulfate 2 mg PRN Q2HR PRN IV PAIN Last administered on 10/01/16 05:20 ; Start 09/29/16 at 18:00; Stop 10/02/16 at 21:41; Status DC Morphine Sulfate 4 mg PRN Q2HR PRN IV PAIN; Start 09/29/16 at 18:00; Stop at 21:41; Status DC Guaifenesin (Robitussin) 200 mg PRN Q4HRS PRN PO COUGH; Start 09/29/16 at 18:00 Insulin Aspart (Novolog) 10 units 1X ONCE SQ Last administered on 09/29/16 22: 00; Start 09/29/16 at 22:00; Stop 09/29/16 at 22:01; Status DC Insulin Aspart (Novolog) 4 units 1X ONCE SQ Last administered on 09/30/16 08: 50; Start 09/30/16 at 08:45; Stop 09/30/16 at 08:47; Status DC Insulin Aspart 0-9 UNITS QIDACHS SQ Last administered on 10/03/16 11:53; Start 09/30/16 at 11:30 Sodium Chloride (Iv Sodium Chloride 0.45%) 1,000 ml @ 125 mls/hr Q8H IV Last administered on 10/02/16 20:11; Start 09/30/16 at 09:30; Stop 10/02/16 at 21:41; Status DC Insulin Detemir (Levemir) 10 units BID SQ Last administered on 10/02/16 07:58; Start 09/30/16 at 10:00; Stop 10/02/16 at 21:42; Status DC Albuterol/ Ipratropium (Duoneb) 3 ml RTQID NEB Last administered on 10/03/16 12 :03; Start 09/30/16 at 12:00 Pantoprazole Sodium (Protonix) 40 mg DAILYAC PO Last administered on 10/01/16 08:18; Start 10/01/16 at 07:30; Stop 10/01/16 at 13:26; Status DC Acetaminophen (Tylenol) 650 mg PRN Q6HRS PRN PO MILD PAIN / TEMP; Start at 12:45 Ondansetron HCl (Zofran) 4 mg PRN Q6HRS PRN IV NAUSEA/VOMITING, 1ST CHOICE Last administered on 10/03/16 03:20; Start 09/30/16 at 12:45 Enoxaparin Sodium (Lovenox 40mg Syringe) 40 mg Q24H SQ Last administered on 10/03 14:17; Start 09/30/16 at 13:00 Insulin Human Regular 10 unit 10 unit 1X ONCE IV Last administered on 17:30; Start 09/30/16 at 17:15; Stop 09/30/16 at 17:16; Status DC Promethazine HCl/ Sodium Chloride (Phenergan/Iv Sodium Chloride 0.9% 50ml) 50.25 ml @ 150.75 mls/ hr PRN Q6HRS PRN IV NAUSEA/VOMITING, 2ND CHOICE Last administered on 10/03/16 09:25; Start 09/30/16 at 17:15 Hydralazine HCl (Apresoline) 10 mg PRN Q4HRS PRN IVP ELEVATED BP, SEE COMMENTS Last administered on 10/03/16 03:15; Start 09/30/16 at 21:00 Metoclopramide HCl (Reglan) 10 mg PRN Q6HRS PRN IV NAUSEA/VOMITING, 3RD CHOICE Last administered on 10/02/16 17:01; Start 10/01/16 at 09:30; Stop 10/02/16 at 22: 00; Status DC Pantoprazole Sodium 40 mg 40 mg BIDAC IVP Last administered on 10/03/16 08:09; Start 10/01/16 at 16:30 Amino Acids/ Glycerin/ Electrolytes 1,000 ml @ 50 mls/hr Q20H IV Last administered on 10/03/16 03:24; Start 10/01/16 at 21:00 Potassium Chloride (KCl Premix 10meq) 100 ml @ 100 mls/hr Q1H IV Last administered on 10/02/16 13:00; Start 10/02/16 at 10:00; Stop 10/02/16 at 13:59; Status DC Insulin Detemir (Levemir) 15 units BID SQ Last administered on 10/02/16 23:03; Start 10/03/16 at 09:00; Stop 10/03/16 at 09:00; Status DC Metoclopramide HCl (Reglan) 10 mg Q8HRS IV Last administered on 10/03/16 05:31 ; Start 10/03/16 at 06:00; Stop 10/03/16 at 08:53; Status DC Insulin Detemir (Levemir) 15 units BID SQ Last administered on 10/03/16 08:17; Start 10/03/16 at 08:00 Metoclopramide HCl (Reglan) 10 mg Q6HRS IV ; Start 10/03/16 at 12:00; Stop at 12:00; Status DC Metoclopramide HCl (Reglan) 10 mg Q6HRS IV Last administered on 10/03/16 11:47 ; Start 10/03/16 at 12:00 Active Scripts Active Levemir Flextouch (Insulin Detemir) 100 Unit/1 Ml Insuln.pen 15 Units SQ BID Cipro (Ciprofloxacin Hcl) 250 Mg Tablet 750 Mg PO BID 9 Days Reported Ibuprofen 800 Mg Tablet 800 Mg PO PRN Q6HRS PRN Humalog (Insulin Lispro) 100 Unit/1 Ml Cartridge 100 Unit SQ Vitals/I & O Vital Sign - Last 24 Hours 10/02/16 10/02/16 10/02/16 10/02/16 16:23 19:00 20:12 23:00 Temp 98.8 97.9 98.8 97.9 Pulse 109 Resp 20 18 18 B/P 166/92 159/95 Pulse Ox 98 97 98 O2 Delivery Room Air Room Air Room Air 10/03/16 10/03/16 10/03/16 10/03/16 03:00 03:15 07:00 07:46 Temp 98.7 98.2 98.7 98.2 Pulse 106 106 122 Resp 20 16 B/P 167/99 167/99 117/74 Pulse Ox 90 99 95 O2 Delivery Room Air Room Air Room Air 10/03/16 10/03/16 10/03/16 10/03/16 08:00 11:00 12:04 15:20 Temp 98.0 98.2 98.0 98.2 Pulse 116 119 Resp 18 16 B/P 120/73 116/69 Pulse Ox 98 98 95 O2 Delivery Room Air Room Air Room Air Room Air Intake and Output 10/02/16 10/02/16 10/03/16 15:00 23:00 07:00 Intake Total 120 ml 430 ml Output Total 550 ml 1350 ml Balance -430 ml 430 ml -1350 ml MARTITA [email or web address] MD Oct 03, 2016 16:02
[2016-10-03 19:00] VITALS: BP 137/78
[2016-10-03] MEDS: HYDROCODONE/APAP 5/325MG TABLET. PO PRN (19:46)
[2016-10-03 23:00] VITALS: BP 103/60
[2016-10-04] MEDS: METOCLOPRAMIDE HCL 10 MG/2 ML VIAL. IV SCH ×4 (00:21→18:00)
[2016-10-04 03:00] VITALS: BP 100/44
[2016-10-04 07:00] VITALS: BP 107/66
[2016-10-04 07:15] LABS: BASO % 0 % (0-3); EOS % 2 % (0-3); HEMATOCRIT 36.5 % (36.0-47.0); HEMOGLOBIN 11.7 g/dL (12.0-15.5); LYMPH # 1.4 x10^3/uL (1.0-4.8); LYMPH % 20 % (24-48); MEAN CORPUSCULAR HEMOGLOBIN 28 pg (25-35); MEAN CORPUSCULAR HGB CONC 32 g/dL (31-37); MEAN CORPUSCULAR VOLUME 86 fL (79-100); MONO % 7 % (0-9); NEUT % 70 % (31-73); PLATELET COUNT 218 x10^3/uL (140-400); RED BLOOD COUNT 4.23 x10^6/uL (3.50-5.40); RED CELL DISTRIBUTION WIDTH 13.9 % (11.5-14.5); WHITE BLOOD COUNT 6.8 x10^3/uL (4.0-11.0)
[2016-10-04 07:34] LABS: ALBUMIN 2.4 g/dL (3.4-5.0); ALBUMIN/GLOBULIN RATIO 0.7 (1.0-1.7); CALCIUM 8.3 mg/dL (8.5-10.1); CREATININE 0.7 mg/dL (0.6-1.0); GFR 88.6; POTASSIUM 3.5 mmol/L (3.5-5.1); TOTAL BILIRUBIN 0.3 mg/dL (0.2-1.0)
[2016-10-04] MEDS: IPRATRPIUM/ALBUTEROL 0.5/2.5MG 3 ML NEBU. NEB SCH ×4 (08:13→20:00)
[2016-10-04] MEDS: PANTOPRAZOLE IV PUSH 40 MG VIAL. IVP SCH ×2 (09:27→16:45)
[2016-10-04] MEDS: INSULIN DETEMIR 300 UNITS/3 ML INSULN.PEN. SQ SCH ×2 (09:36→22:52)
[2016-10-04] MEDS: INSULIN ASPART 300 UNITS/3 ML INSULN.PEN SQ SCH ×5 (10:37→21:00)
[2016-10-04] MEDS ORDERED: INSULIN ASPART 300 UNITS/3 ML INSULN.PEN SQ ONE ×2 (10:45→12:30)
[2016-10-04 11:00] VITALS: BP 134/71
--- NOTE | 2016-10-04 11:08 | PDOC ---
PROGRESS NOTES Assessment Problems Medical Problems: (1) Acute renal failure Status: Acute (2) Diabetic ketoacidosis Status: Acute Metabolic encephalopathy. DKA Renal failure, acute Leukocytosis, WBC 28.2 Fatty liver. Nausea Vomiting. Diarrhea Abdominal pain Still complaining of dysphagia Plan Speech therapy Also physical and occupational therapy Control diabetes Brain MRI if dysphagia persists Subjective Still has dysphagia Objective Vital Signs Date Time Temp Pulse Resp B/P Pulse Ox O2 Delivery O2 Flow Rate FiO2 10/04/16 08:16 98 Room Air 10/04/16 07:00 98.4 111 18 107/66 98.4 Intake and Output 10/04/16 07:00 Intake Total 750 ml Output Total 2750 ml Balance -2000 ml Intake Oral 600 ml IV Total 150 ml Output Urine Total 1700 ml Urine/Stool Mix 1000 ml Emesis 50 ml # Voids 3 PHYSICAL EXAM Alert. Oriented to time, place and person. PERRL. EOMI. CN: no focal findings. Muscle tone: normal. Muscle strength: 5/5 DTR: 1+ Plantar reflex: flexor Gait: not examined in bed. Sensory exam: stocking loss No cerebellar signs elicited. Review of Relevant I have reviewed the following items edna (where applicable) has been applied. Labs Laboratory Tests Test 10/02/16 11:28 10/02/16 16:34 10/02/16 20:55 10/03/16 07:56 Glucose (Fingerstick) 299mg/dL (70-99) 297mg/dL (70-99) 321mg/dL (70-99) 340mg/dL (70-99) Test 10/03/16 11:23 10/03/16 16:47 10/03/16 21:06 10/04/16 06:20 Glucose (Fingerstick) 217mg/dL (70-99) 135mg/dL (70-99) 229mg/dL (70-99) White Blood Count 6.8x10^3/uL (4.0-11.0) Red Blood Count 4.23x10^6/uL (3.50-5.40) Hemoglobin 11.7g/dL (12.0-15.5) Hematocrit 36.5% (36.0-47.0) Mean Corpuscular Volume 86fL (79-100) Mean Corpuscular Hemoglobin 28pg (25-35) Mean Corpuscular Hemoglobin Concent 32g/dL (31-37) Red Cell Distribution Width 13.9% (11.5-14.5) Platelet Count 218x10^3/uL (140-400) Neutrophils (%) (Auto) 70% (31-73) Lymphocytes (%) (Auto) 20% (24-48) Monocytes (%) (Auto) 7% (0-9) Eosinophils (%) (Auto) 2% (0-3) Basophils (%) (Auto) 0% (0-3) Neutrophils # (Auto) 4.8x10^3uL (1.8-7.7) Lymphocytes # (Auto) 1.4x10^3/uL (1.0-4.8) Monocytes # (Auto) 0.5x10^3/uL (0.0-1.1) Eosinophils # (Auto) 0.1x10^3/uL (0.0-0.7) Basophils # (Auto) 0.0x10^3/uL (0.0-0.2) Sodium Level 137mmol/L (136-145) Potassium Level 3.5mmol/L (3.5-5.1) Chloride Level 101mmol/L (98-107) Carbon Dioxide Level 27mmol/L (21-32) Anion Gap 9 (6-14) Blood Urea Nitrogen 12mg/dL (7-20) Creatinine 0.7mg/dL (0.6-1.0) Estimated GFR (Cockcroft-Gault) 88.6 BUN/Creatinine Ratio 17 (6-20) Glucose Level 365mg/dL (70-99) Calcium Level 8.3mg/dL (8.5-10.1) Total Bilirubin 0.3mg/dL (0.2-1.0) Aspartate Amino Transf (AST/SGOT) 12U/L (15-37) Alanine Aminotransferase (ALT/SGPT) 9U/L (14-59) Alkaline Phosphatase 95U/L (46-116) Total Protein 6.0g/dL (6.4-8.2) Albumin 2.4g/dL (3.4-5.0) Albumin/Globulin Ratio 0.7 (1.0-1.7) Test 10/04/16 08:12 Glucose (Fingerstick) 364mg/dL (70-99) Laboratory Tests Test 10/03/16 11:23 10/03/16 16:47 10/03/16 21:06 10/04/16 06:20 Glucose (Fingerstick) 217mg/dL (70-99) 135mg/dL (70-99) 229mg/dL (70-99) White Blood Count 6.8x10^3/uL (4.0-11.0) Red Blood Count 4.23x10^6/uL (3.50-5.40) Hemoglobin 11.7g/dL (12.0-15.5) Hematocrit 36.5% (36.0-47.0) Mean Corpuscular Volume 86fL (79-100) Mean Corpuscular Hemoglobin 28pg (25-35) Mean Corpuscular Hemoglobin Concent 32g/dL (31-37) Red Cell Distribution Width 13.9% (11.5-14.5) Platelet Count 218x10^3/uL (140-400) Neutrophils (%) (Auto) 70% (31-73) Lymphocytes (%) (Auto) 20% (24-48) Monocytes (%) (Auto) 7% (0-9) Eosinophils (%) (Auto) 2% (0-3) Basophils (%) (Auto) 0% (0-3) Neutrophils # (Auto) 4.8x10^3uL (1.8-7.7) Lymphocytes # (Auto) 1.4x10^3/uL (1.0-4.8) Monocytes # (Auto) 0.5x10^3/uL (0.0-1.1) Eosinophils # (Auto) 0.1x10^3/uL (0.0-0.7) Basophils # (Auto) 0.0x10^3/uL (0.0-0.2) Sodium Level 137mmol/L (136-145) Potassium Level 3.5mmol/L (3.5-5.1) Chloride Level 101mmol/L (98-107) Carbon Dioxide Level 27mmol/L (21-32) Anion Gap 9 (6-14) Blood Urea Nitrogen 12mg/dL (7-20) Creatinine 0.7mg/dL (0.6-1.0) Estimated GFR (Cockcroft-Gault) 88.6 BUN/Creatinine Ratio 17 (6-20) Glucose Level 365mg/dL (70-99) Calcium Level 8.3mg/dL (8.5-10.1) Total Bilirubin 0.3mg/dL (0.2-1.0) Aspartate Amino Transf (AST/SGOT) 12U/L (15-37) Alanine Aminotransferase (ALT/SGPT) 9U/L (14-59) Alkaline Phosphatase 95U/L (46-116) Total Protein 6.0g/dL (6.4-8.2) Albumin 2.4g/dL (3.4-5.0) Albumin/Globulin Ratio 0.7 (1.0-1.7) Test 10/04/16 08:12 Glucose (Fingerstick) 364mg/dL (70-99) Microbiology 09/28/16 Blood Culture - Final, Complete NO GROWTH AFTER 5 DAYS Medications Current Medications Sodium Chloride 1,000 ml @ 1,000 mls/hr Q1H IV Last administered on 09/28/16 18:27; Start 09/28/16 at 18:03; Stop 09/28/16 at 20:02; Status DC Insulin Human Regular (Novolin R Iv Drip) 150 ml @ 0 mls/hr 1X ONCE IV Last administered on 09/28/16 18:58; Start 09/28/16 at 18:15; Stop 09/29/16 at 13:40; Status DC Ondansetron HCl (Zofran) 4 mg 1X ONCE IV Last administered on 09/28/16 18:20; Start 09/28/16 at 18:30; Stop 09/28/16 at 18:31; Status DC Ondansetron HCl (Zofran) 4 mg PRN Q8HRS PRN IV NAUSEA/VOMITING Last administered on 09/29/16 05:59; Start 09/28/16 at 19:30; Stop 09/29/16 at 19:29; Status DC Fentanyl Citrate (Fentanyl 2ml Vial) 50 mcg PRN Q2HR PRN IV PAIN Last administered on 09/29/16 06:00; Start 09/28/16 at 19:30; Stop 09/29/16 at 13:40; Status DC Acetaminophen 650 mg 650 mg PRN Q4HRS PRN PO FEVER; Start 09/28/16 at 19:30; Stop 09/29/16 at 19:29; Status DC Potassium Chloride 100 ml @ 100 mls/hr PRN Q1HR PRN IV SEE COMMENTS; Start 09/28/16 at 19:30; Stop 09/28/16 at 22:56; Status DC Potassium Chloride 100 ml @ 100 mls/hr PRN Q1HR PRN IV SEE COMMENTS; Start 09/28/16 at 19:30; Stop 09/28/16 at 22:56; Status DC Potassium Chloride 100 ml @ 100 mls/hr PRN Q1HR PRN IV SEE COMMENTS; Start 09/28/16 at 19:30; Stop 09/28/16 at 22:56; Status DC Sodium Chloride 1,000 ml @ 250 mls/hr Q4H IV Last administered on 09/29/16 08: 18; Start 09/28/16 at 20:14; Stop 09/29/16 at 11:05; Status DC Sodium Chloride 1,000 ml @ 500 mls/hr Q2H IV Last administered on 09/29/16 01: 00; Start 09/28/16 at 23:00; Stop 09/29/16 at 09:09; Status DC Sodium Chloride 1,000 ml @ 250 mls/hr Q4H IV Last administered on 09/29/16 08: 17; Start 09/28/16 at 23:00; Stop 09/29/16 at 11:05; Status DC Dextrose/Sodium Chloride 1,000 ml @ 250 mls/hr Q4H IV Last administered on 09/29 11:36; Start 09/28/16 at 23:00; Stop 09/29/16 at 13:40; Status DC Insulin Human Regular 150 unit/ Sodium Chloride 151.5 ml @ 0 mls/hr CONT PRN PRN IV PER PROTOCOL Last administered on 09/29/16 06:04; Start 09/28/16 at 23:00 ; Stop 10/01/16 at 17:17; Status DC Potassium Chloride 100 ml @ 100 mls/hr PRN Q1HR PRN IV SEE COMMENTS; Start 09/28/16 at 22:30; Stop 10/02/16 at 21:41; Status DC Potassium Chloride 100 ml @ 100 mls/hr PRN Q1HR PRN IV SEE COMMENTS; Start 09/28/16 at 22:30; Stop 10/02/16 at 21:41; Status DC Magnesium Sulfate/ Dextrose 100 ml @ 25 mls/hr DAILY IV ; Start 09/29/16 at 09: 00; Stop 09/29/16 at 09:00; Status DC Sodium Bicarbonate 50 meq/Sodium Chloride 1,050 ml @ 500 mls/hr Q2H6M PRN IV SEE COMMENTS; Start 09/28/16 at 23:15; Status Cancel Sodium Phosphate 40 mmol/Sodium Chloride 513.3333 ml @ 83.3 mls/hr 1X PRN PRN IV SEE COMMENTS; Start 09/28/16 at 22:30; Stop 09/30/16 at 12:37; Status DC Sodium Phosphate 20 mmol/Dextrose 256.6667 ml @ 62.5 mls/hr 1X PRN PRN IV SEE COMMENTS; Start 09/28/16 at 22:30; Stop 09/30/16 at 12:37; Status DC Sodium Phosphate/ Dextrose 253.3333 ml @ 62.5 mls/hr 1X PRN PRN IV SEE COMMENTS ; Start 09/28/16 at 22:30; Stop 10/02/16 at 21:41; Status DC Pantoprazole Sodium 40 mg 40 mg DAILYAC IVP Last administered on 09/30/16t 08:42 ; Start 09/29/16 at 07:30; Stop 09/30/16 at 12:37; Status DC Sodium Bicarbonate/ Sodium Chloride (Iv Sodium Chloride 0.45%) 1,050 ml @ 500 mls/hr CONT PRN IV SEE DKA PROTOCOL; Start 09/29/16 at 03:30; Stop 09/29/16 at 13 :40; Status DC Dextrose 25 gm 25 gm STK-MED ONCE IV ; Start 09/29/16 at 06:53; Stop 09/29/16 at 06:54; Status DC Dextrose/Sodium Chloride (Iv D5% - 1/2 NS) 1,000 ml @ 75 mls/hr 1X PRN PRN IV SEE COMMENTS; Start 09/29/16 at 07:15; Stop 09/29/16 at 13:40; Status DC Dextrose 25 gm 1X ONCE IV Last administered on 09/29/16t 08:16; Start 09/29/16 at 07:45; Stop 09/29/16 at 07:46; Status DC Insulin Aspart (Novolog) 0-9 UNITS TIDWMEALS SQ Last administered on 09/30/16 01:13; Start 09/29/16 at 17:00; Stop 09/30/16 at 09:30; Status DC Dextrose 12.5 gm 12.5 gm PRN Q15MIN PRN IV SEE COMMENTS; Start 09/29/16 at 12:45 Sodium Chloride (Iv Sodium Chloride 0.45%) 1,000 ml @ 75 mls/hr [id number] IV Last administered on 09/29/16 17:14; Start 09/29/16 at 13:45; Stop 09/30/16 at 09: 30; Status DC Acetaminophen/ Hydrocodone Bitart (Lortab 5/325) 1 tab PRN Q4HRS PRN PO MODERATE - SEVERE PAIN Last administered on 10/03/16 19:46; Start 09/29/16 at 18: 00 Morphine Sulfate 2 mg PRN Q2HR PRN IV PAIN Last administered on 10/01/16 05:20 ; Start 09/29/16 at 18:00; Stop 10/02/16 at 21:41; Status DC Morphine Sulfate 4 mg PRN Q2HR PRN IV PAIN; Start 09/29/16 at 18:00; Stop at 21:41; Status DC Guaifenesin (Robitussin) 200 mg PRN Q4HRS PRN PO COUGH; Start 09/29/16 at 18:00 Insulin Aspart (Novolog) 10 units 1X ONCE SQ Last administered on 09/29/16 22: 00; Start 09/29/16 at 22:00; Stop 09/29/16 at 22:01; Status DC Insulin Aspart (Novolog) 4 units 1X ONCE SQ Last administered on 09/30/16 08: 50; Start 09/30/16 at 08:45; Stop 09/30/16 at 08:47; Status DC Insulin Aspart 0-9 UNITS QIDACHS SQ Last administered on 10/04/16 10:37; Start 09/30/16 at 11:30 Sodium Chloride (Iv Sodium Chloride 0.45%) 1,000 ml @ 125 mls/hr Q8H IV Last administered on 10/02/16 20:11; Start 09/30/16 at 09:30; Stop 10/02/16 at 21:41; Status DC Insulin Detemir (Levemir) 10 units BID SQ Last administered on 10/02/16 07:58; Start 09/30/16 at 10:00; Stop 10/02/16 at 21:42; Status DC Albuterol/ Ipratropium (Duoneb) 3 ml RTQID NEB Last administered on 10/04/16 08 :13; Start 09/30/16 at 12:00 Pantoprazole Sodium (Protonix) 40 mg DAILYAC PO Last administered on 10/01/16 08:18; Start 10/01/16 at 07:30; Stop 10/01/16 at 13:26; Status DC Acetaminophen (Tylenol) 650 mg PRN Q6HRS PRN PO MILD PAIN / TEMP; Start at 12:45 Ondansetron HCl (Zofran) 4 mg PRN Q6HRS PRN IV NAUSEA/VOMITING, 1ST CHOICE Last administered on 10/03/16 22:04; Start 09/30/16 at 12:45 Enoxaparin Sodium (Lovenox 40mg Syringe) 40 mg Q24H SQ Last administered on 10/03 14:17; Start 09/30/16 at 13:00 Insulin Human Regular 10 unit 10 unit 1X ONCE IV Last administered on 17:30; Start 09/30/16 at 17:15; Stop 09/30/16 at 17:16; Status DC Promethazine HCl/ Sodium Chloride (Phenergan/Iv Sodium Chloride 0.9% 50ml) 50.25 ml @ 150.75 mls/ hr PRN Q6HRS PRN IV NAUSEA/VOMITING, 2ND CHOICE Last administered on 10/03/16 09:25; Start 09/30/16 at 17:15 Hydralazine HCl (Apresoline) 10 mg PRN Q4HRS PRN IVP ELEVATED BP, SEE COMMENTS Last administered on 10/03/16 03:15; Start 09/30/16 at 21:00 Metoclopramide HCl (Reglan) 10 mg PRN Q6HRS PRN IV NAUSEA/VOMITING, 3RD CHOICE Last administered on 10/02/16 17:01; Start 10/01/16 at 09:30; Stop 10/02/16 at 22: 00; Status DC Pantoprazole Sodium 40 mg 40 mg BIDAC IVP Last administered on 10/04/16 09:27; Start 10/01/16 at 16:30 Amino Acids/ Glycerin/ Electrolytes 1,000 ml @ 50 mls/hr Q20H IV Last administered on 10/03/16 22:12; Start 10/01/16 at 21:00 Potassium Chloride (KCl Premix 10meq) 100 ml @ 100 mls/hr Q1H IV Last administered on 10/02/16 13:00; Start 10/02/16 at 10:00; Stop 10/02/16 at 13:59; Status DC Insulin Detemir (Levemir) 15 units BID SQ Last administered on 10/02/16 23:03; Start 10/03/16 at 09:00; Stop 10/03/16 at 09:00; Status DC Metoclopramide HCl (Reglan) 10 mg Q8HRS IV Last administered on 10/03/16 05:31 ; Start 10/03/16 at 06:00; Stop 10/03/16 at 08:53; Status DC Insulin Detemir (Levemir) 15 units BID SQ Last administered on 10/04/16 09:36; Start 10/03/16 at 08:00; Stop 10/04/16 at 10:33; Status DC Metoclopramide HCl (Reglan) 10 mg Q6HRS IV ; Start 10/03/16 at 12:00; Stop at 12:00; Status DC Metoclopramide HCl (Reglan) 10 mg Q6HRS IV Last administered on 10/04/16 05:37 ; Start 10/03/16 at 12:00 Insulin Detemir (Levemir) 18 units BID SQ ; Start 10/04/16 at 21:00 Insulin Aspart (Novolog) 10 units 1X ONCE SQ Last administered on 10/04/16 10: 37; Start 10/04/16 at 10:45; Stop 10/04/16 at 10:46; Status DC Insulin Aspart (Novolog) 5 units TIDAC SQ ; Start 10/04/16 at 11:30 Active Scripts Active Levemir Flextouch (Insulin Detemir) 100 Unit/1 Ml Insuln.pen 15 Units SQ BID Cipro (Ciprofloxacin Hcl) 250 Mg Tablet 750 Mg PO BID 9 Days Reported Ibuprofen 800 Mg Tablet 800 Mg PO PRN Q6HRS PRN Humalog (Insulin Lispro) 100 Unit/1 Ml Cartridge 100 Unit SQ Vitals/I & O Vital Sign - Last 24 Hours 10/03/16 10/03/16 10/03/16 10/03/16 12:04 15:20 16:13 19:00 Temp 98.2 98.7 98.2 98.7 Pulse 119 111 Resp 16 20 B/P 116/69 137/78 Pulse Ox 98 95 97 93 O2 Delivery Room Air Room Air Room Air Room Air 10/03/16 10/03/16 10/03/16 10/04/16 19:46 20:33 23:00 03:00 Temp 98.7 98.8 98.7 98.8 Pulse 103 116 Resp 18 20 20 B/P 103/60 100/44 Pulse Ox 97 97 94 O2 Delivery Room Air Room Air Room Air Room Air 10/04/16 10/04/16 07:00 08:16 Temp 98.4 98.4 Pulse 111 Resp 18 B/P 107/66 Pulse Ox 97 98 O2 Delivery Room Air Room Air Intake and Output 10/03/16 10/03/16 10/04/16 15:00 23:00 07:00 Intake Total 150 ml 600 ml Output Total 850 ml 1000 ml 900 ml Balance -700 ml -1000 ml -[address], 10/01, negative LCAEY FUENTES MD Oct 04, 2016 11:07
[2016-10-04] MEDS ORDERED: INSULIN ASPART 300 UNITS/3 ML INSULN.PEN SQ SCH (11:30)
--- NOTE | 2016-10-04 12:04 | PDOC ---
Subjective: Subjective: Sometimes hurts to swallow, sometimes it feels like liquids get stuck and come back up. Not vomiting. Wants to eat a little more. Objective: Objective: Note plans for bedside swallow eval. Vital Signs: Vital Signs Date Time Temp Pulse Resp B/P Pulse Ox O2 Delivery O2 Flow Rate FiO2 10/04/16 08:16 98 Room Air 10/04/16 07:00 98.4 111 18 107/66 98.4 Labs: Laboratory Tests Test 10/03/16 16:47 10/03/16 21:06 10/04/16 08:12 10/04/16 10:25 Glucose (Fingerstick) 135mg/dL (70-99) 229mg/dL (70-99) 364mg/dL (70-99) 483mg/dL (70-99) PE: GEN: NAD LUNGS: CTAB HEART: RRR ABD: NABS, S/ND/NT NEURO/PSYCH: A & O 3 A/P: Nausea/vomiting w/ DKA - improved -tolerating clears w/o vomiting, wants to eat more -on IV Reglan QID and IV PPI BID Dysphagia/odynophagia/globus -sometimes painful swallowing, ?sometimes regurgitation -neuro following -- Await swallow eval. Try full liquids. AZIZA MARIE Oct 04, 2016 12:04
--- NOTE | 2016-10-04 12:49 | PDOC ---
PROGRESS NOTES Chief Complaint Chief Complaint DKA acute encephalopathy ASSESSMENT AND PLAN: 1. DKA: resolved, but blood sugar running very high again 2. AMS with 1, metabolic encephalopathy: much improved, finally 3. Hyperglycemia: ongoing, poorly controlled. increase Detemir to 25 BID, add 10 TID meal, 4. Intractable N/V: improving, not resolved. suspect gastroparesis. increase Reglan to ATC qid for now a per Dr Phipps 5. Bronchitis: likely viral infection. resolving. treat symptomatically 6. Leukocytosis: resolved 7. SIRS: resolved 8. Prophylaxis: lovenox, PPI History of Present Illness History of Present Illness weakness nausea and lethargy does not feel ready for dc Vitals Vitals Vital Signs Date Time Temp Pulse Resp B/P Pulse Ox O2 Delivery O2 Flow Rate FiO2 10/04/16 12:02 98 Room Air 10/04/16 07:00 98.4 111 18 107/66 98.4 Physical Exam General: Alert, Oriented X3, Cooperative, No acute distress Heart: Regular rate Lungs: Clear Abdomen: Normal bowel sounds, No tenderness Extremities: No clubbing, No edema Skin: No rashes Labs LABS Laboratory Tests Test 10/03/16 16:47 10/03/16 21:06 10/04/16 06:20 10/04/16 08:12 Glucose (Fingerstick) 135mg/dL (70-99) 229mg/dL (70-99) 364mg/dL (70-99) White Blood Count 6.8x10^3/uL (4.0-11.0) Red Blood Count 4.23x10^6/uL (3.50-5.40) Hemoglobin 11.7g/dL (12.0-15.5) Hematocrit 36.5% (36.0-47.0) Mean Corpuscular Volume 86fL (79-100) Mean Corpuscular Hemoglobin 28pg (25-35) Mean Corpuscular Hemoglobin Concent 32g/dL (31-37) Red Cell Distribution Width 13.9% (11.5-14.5) Platelet Count 218x10^3/uL (140-400) Neutrophils (%) (Auto) 70% (31-73) Lymphocytes (%) (Auto) 20% (24-48) Monocytes (%) (Auto) 7% (0-9) Eosinophils (%) (Auto) 2% (0-3) Basophils (%) (Auto) 0% (0-3) Neutrophils # (Auto) 4.8x10^3uL (1.8-7.7) Lymphocytes # (Auto) 1.4x10^3/uL (1.0-4.8) Monocytes # (Auto) 0.5x10^3/uL (0.0-1.1) Eosinophils # (Auto) 0.1x10^3/uL (0.0-0.7) Basophils # (Auto) 0.0x10^3/uL (0.0-0.2) Sodium Level 137mmol/L (136-145) Potassium Level 3.5mmol/L (3.5-5.1) Chloride Level 101mmol/L (98-107) Carbon Dioxide Level 27mmol/L (21-32) Anion Gap 9 (6-14) Blood Urea Nitrogen 12mg/dL (7-20) Creatinine 0.7mg/dL (0.6-1.0) Estimated GFR (Cockcroft-Gault) 88.6 BUN/Creatinine Ratio 17 (6-20) Glucose Level 365mg/dL (70-99) Calcium Level 8.3mg/dL (8.5-10.1) Total Bilirubin 0.3mg/dL (0.2-1.0) Aspartate Amino Transf (AST/SGOT) 12U/L (15-37) Alanine Aminotransferase (ALT/SGPT) 9U/L (14-59) Alkaline Phosphatase 95U/L (46-116) Total Protein 6.0g/dL (6.4-8.2) Albumin 2.4g/dL (3.4-5.0) Albumin/Globulin Ratio 0.7 (1.0-1.7) Test 10/04/16 10:25 Glucose (Fingerstick) 483mg/dL (70-99) Review of Systems Review of Systems nausea weakness Assessment and Plan Assessmemt and Plan supportive care, IV fluid an d IV nutrition increase doses on insulin Problems Medical Problems: (1) Acute renal failure Status: Acute (2) Diabetic ketoacidosis Status: Acute Problems: Comment Review of Relevant I have reviewed the following items edna (where applicable) has been applied. Labs Laboratory Tests Test 10/02/16 16:34 10/02/16 20:55 10/03/16 07:56 10/03/16 11:23 Glucose (Fingerstick) 297mg/dL (70-99) 321mg/dL (70-99) 340mg/dL (70-99) 217mg/dL (70-99) Test 10/03/16 16:47 10/03/16 21:06 10/04/16 06:20 10/04/16 08:12 Glucose (Fingerstick) 135mg/dL (70-99) 229mg/dL (70-99) 364mg/dL (70-99) White Blood Count 6.8x10^3/uL (4.0-11.0) Red Blood Count 4.23x10^6/uL (3.50-5.40) Hemoglobin 11.7g/dL (12.0-15.5) Hematocrit 36.5% (36.0-47.0) Mean Corpuscular Volume 86fL (79-100) Mean Corpuscular Hemoglobin 28pg (25-35) Mean Corpuscular Hemoglobin Concent 32g/dL (31-37) Red Cell Distribution Width 13.9% (11.5-14.5) Platelet Count 218x10^3/uL (140-400) Neutrophils (%) (Auto) 70% (31-73) Lymphocytes (%) (Auto) 20% (24-48) Monocytes (%) (Auto) 7% (0-9) Eosinophils (%) (Auto) 2% (0-3) Basophils (%) (Auto) 0% (0-3) Neutrophils # (Auto) 4.8x10^3uL (1.8-7.7) Lymphocytes # (Auto) 1.4x10^3/uL (1.0-4.8) Monocytes # (Auto) 0.5x10^3/uL (0.0-1.1) Eosinophils # (Auto) 0.1x10^3/uL (0.0-0.7) Basophils # (Auto) 0.0x10^3/uL (0.0-0.2) Sodium Level 137mmol/L (136-145) Potassium Level 3.5mmol/L (3.5-5.1) Chloride Level 101mmol/L (98-107) Carbon Dioxide Level 27mmol/L (21-32) Anion Gap 9 (6-14) Blood Urea Nitrogen 12mg/dL (7-20) Creatinine 0.7mg/dL (0.6-1.0) Estimated GFR (Cockcroft-Gault) 88.6 BUN/Creatinine Ratio 17 (6-20) Glucose Level 365mg/dL (70-99) Calcium Level 8.3mg/dL (8.5-10.1) Total Bilirubin 0.3mg/dL (0.2-1.0) Aspartate Amino Transf (AST/SGOT) 12U/L (15-37) Alanine Aminotransferase (ALT/SGPT) 9U/L (14-59) Alkaline Phosphatase 95U/L (46-116) Total Protein 6.0g/dL (6.4-8.2) Albumin 2.4g/dL (3.4-5.0) Albumin/Globulin Ratio 0.7 (1.0-1.7) Test 10/04/16 10:25 Glucose (Fingerstick) 483mg/dL (70-99) Laboratory Tests Test 10/03/16 16:47 10/03/16 21:06 10/04/16 06:20 10/04/16 08:12 Glucose (Fingerstick) 135mg/dL (70-99) 229mg/dL (70-99) 364mg/dL (70-99) White Blood Count 6.8x10^3/uL (4.0-11.0) Red Blood Count 4.23x10^6/uL (3.50-5.40) Hemoglobin 11.7g/dL (12.0-15.5) Hematocrit 36.5% (36.0-47.0) Mean Corpuscular Volume 86fL (79-100) Mean Corpuscular Hemoglobin 28pg (25-35) Mean Corpuscular Hemoglobin Concent 32g/dL (31-37) Red Cell Distribution Width 13.9% (11.5-14.5) Platelet Count 218x10^3/uL (140-400) Neutrophils (%) (Auto) 70% (31-73) Lymphocytes (%) (Auto) 20% (24-48) Monocytes (%) (Auto) 7% (0-9) Eosinophils (%) (Auto) 2% (0-3) Basophils (%) (Auto) 0% (0-3) Neutrophils # (Auto) 4.8x10^3uL (1.8-7.7) Lymphocytes # (Auto) 1.4x10^3/uL (1.0-4.8) Monocytes # (Auto) 0.5x10^3/uL (0.0-1.1) Eosinophils # (Auto) 0.1x10^3/uL (0.0-0.7) Basophils # (Auto) 0.0x10^3/uL (0.0-0.2) Sodium Level 137mmol/L (136-145) Potassium Level 3.5mmol/L (3.5-5.1) Chloride Level 101mmol/L (98-107) Carbon Dioxide Level 27mmol/L (21-32) Anion Gap 9 (6-14) Blood Urea Nitrogen 12mg/dL (7-20) Creatinine 0.7mg/dL (0.6-1.0) Estimated GFR (Cockcroft-Gault) 88.6 BUN/Creatinine Ratio 17 (6-20) Glucose Level 365mg/dL (70-99) Calcium Level 8.3mg/dL (8.5-10.1) Total Bilirubin 0.3mg/dL (0.2-1.0) Aspartate Amino Transf (AST/SGOT) 12U/L (15-37) Alanine Aminotransferase (ALT/SGPT) 9U/L (14-59) Alkaline Phosphatase 95U/L (46-116) Total Protein 6.0g/dL (6.4-8.2) Albumin 2.4g/dL (3.4-5.0) Albumin/Globulin Ratio 0.7 (1.0-1.7) Test 10/04/16 10:25 Glucose (Fingerstick) 483mg/dL (70-99) Microbiology 09/28/16 Blood Culture - Final, Complete NO GROWTH AFTER 5 DAYS Medications Current Medications Sodium Chloride 1,000 ml @ 1,000 mls/hr Q1H IV Last administered on 09/28/16t 18:27; Start 09/28/16 at 18:03; Stop 09/28/16 at 20:02; Status DC Insulin Human Regular (Novolin R Iv Drip) 150 ml @ 0 mls/hr 1X ONCE IV Last administered on 09/28/16 18:58; Start 09/28/16 at 18:15; Stop 09/29/16 at 13:40; Status DC Ondansetron HCl (Zofran) 4 mg 1X ONCE IV Last administered on 09/28/16 18:20; Start 09/28/16 at 18:30; Stop 09/28/16 at 18:31; Status DC Ondansetron HCl (Zofran) 4 mg PRN Q8HRS PRN IV NAUSEA/VOMITING Last administered on 09/29/16 05:59; Start 09/28/16 at 19:30; Stop 09/29/16 at 19:29; Status DC Fentanyl Citrate (Fentanyl 2ml Vial) 50 mcg PRN Q2HR PRN IV PAIN Last administered on 09/29/16 06:00; Start 09/28/16 at 19:30; Stop 09/29/16 at 13:40; Status DC Acetaminophen 650 mg 650 mg PRN Q4HRS PRN PO FEVER; Start 09/28/16 at 19:30; Stop 09/29/16 at 19:29; Status DC Potassium Chloride 100 ml @ 100 mls/hr PRN Q1HR PRN IV SEE COMMENTS; Start 09/28/16 at 19:30; Stop 09/28/16 at 22:56; Status DC Potassium Chloride 100 ml @ 100 mls/hr PRN Q1HR PRN IV SEE COMMENTS; Start 09/28/16 at 19:30; Stop 09/28/16 at 22:56; Status DC Potassium Chloride 100 ml @ 100 mls/hr PRN Q1HR PRN IV SEE COMMENTS; Start 09/28/16 at 19:30; Stop 09/28/16 at 22:56; Status DC Sodium Chloride 1,000 ml @ 250 mls/hr Q4H IV Last administered on 09/29/16 08: 18; Start 09/28/16 at 20:14; Stop 09/29/16 at 11:05; Status DC Sodium Chloride 1,000 ml @ 500 mls/hr Q2H IV Last administered on 09/29/16 01: 00; Start 09/28/16 at 23:00; Stop 09/29/16 at 09:09; Status DC Sodium Chloride 1,000 ml @ 250 mls/hr Q4H IV Last administered on 09/29/16 08: 17; Start 09/28/16 at 23:00; Stop 09/29/16 at 11:05; Status DC Dextrose/Sodium Chloride 1,000 ml @ 250 mls/hr Q4H IV Last administered on 09/29 11:36; Start 09/28/16 at 23:00; Stop 09/29/16 at 13:40; Status DC Insulin Human Regular 150 unit/ Sodium Chloride 151.5 ml @ 0 mls/hr CONT PRN PRN IV PER PROTOCOL Last administered on 09/29/16 06:04; Start 09/28/16 at 23:00 ; Stop 10/01/16 at 17:17; Status DC Potassium Chloride 100 ml @ 100 mls/hr PRN Q1HR PRN IV SEE COMMENTS; Start 09/28/16 at 22:30; Stop 10/02/16 at 21:41; Status DC Potassium Chloride 100 ml @ 100 mls/hr PRN Q1HR PRN IV SEE COMMENTS; Start 09/28/16 at 22:30; Stop 10/02/16 at 21:41; Status DC Magnesium Sulfate/ Dextrose 100 ml @ 25 mls/hr DAILY IV ; Start 09/29/16 at 09: 00; Stop 09/29/16 at 09:00; Status DC Sodium Bicarbonate 50 meq/Sodium Chloride 1,050 ml @ 500 mls/hr Q2H6M PRN IV SEE COMMENTS; Start 09/28/16 at 23:15; Status Cancel Sodium Phosphate 40 mmol/Sodium Chloride 513.3333 ml @ 83.3 mls/hr 1X PRN PRN IV SEE COMMENTS; Start 09/28/16 at 22:30; Stop 09/30/16 at 12:37; Status DC Sodium Phosphate 20 mmol/Dextrose 256.6667 ml @ 62.5 mls/hr 1X PRN PRN IV SEE COMMENTS; Start 09/28/16 at 22:30; Stop 09/30/16 at 12:37; Status DC Sodium Phosphate/ Dextrose 253.3333 ml @ 62.5 mls/hr 1X PRN PRN IV SEE COMMENTS ; Start 09/28/16 at 22:30; Stop 10/02/16 at 21:41; Status DC Pantoprazole Sodium 40 mg 40 mg DAILYAC IVP Last administered on 09/30/16 08:42 ; Start 09/29/16 at 07:30; Stop 09/30/16 at 12:37; Status DC Sodium Bicarbonate/ Sodium Chloride (Iv Sodium Chloride 0.45%) 1,050 ml @ 500 mls/hr CONT PRN IV SEE DKA PROTOCOL; Start 09/29/16 at 03:30; Stop 09/29/16 at 13 :40; Status DC Dextrose 25 gm 25 gm STK-MED ONCE IV ; Start 09/29/16 at 06:53; Stop 09/29/16 at 06:54; Status DC Dextrose/Sodium Chloride (Iv D5% - 1/2 NS) 1,000 ml @ 75 mls/hr 1X PRN PRN IV SEE COMMENTS; Start 09/29/16 at 07:15; Stop 09/29/16 at 13:40; Status DC Dextrose 25 gm 1X ONCE IV Last administered on 09/29/16 08:16; Start 09/29/16 at 07:45; Stop 09/29/16 at 07:46; Status DC Insulin Aspart (Novolog) 0-9 UNITS TIDWMEALS SQ Last administered on 09/30/16 01:13; Start 09/29/16 at 17:00; Stop 09/30/16 at 09:30; Status DC Dextrose 12.5 gm 12.5 gm PRN Q15MIN PRN IV SEE COMMENTS; Start 09/29/16 at 12:45 Sodium Chloride (Iv Sodium Chloride 0.45%) 1,000 ml @ 75 mls/hr [id number] IV Last administered on 09/29/16 17:14; Start 09/29/16 at 13:45; Stop 09/30/16 at 09: 30; Status DC Acetaminophen/ Hydrocodone Bitart (Lortab 5/325) 1 tab PRN Q4HRS PRN PO MODERATE - SEVERE PAIN Last administered on 10/03/16 19:46; Start 09/29/16 at 18: 00 Morphine Sulfate 2 mg PRN Q2HR PRN IV PAIN Last administered on 10/01/16 05:20 ; Start 09/29/16 at 18:00; Stop 10/02/16 at 21:41; Status DC Morphine Sulfate 4 mg PRN Q2HR PRN IV PAIN; Start 09/29/16 at 18:00; Stop at 21:41; Status DC Guaifenesin (Robitussin) 200 mg PRN Q4HRS PRN PO COUGH; Start 09/29/16 at 18:00 Insulin Aspart (Novolog) 10 units 1X ONCE SQ Last administered on 09/29/16 22: 00; Start 09/29/16 at 22:00; Stop 09/29/16 at 22:01; Status DC Insulin Aspart (Novolog) 4 units 1X ONCE SQ Last administered on 09/30/16 08: 50; Start 09/30/16 at 08:45; Stop 09/30/16 at 08:47; Status DC Insulin Aspart 0-9 UNITS QIDACHS SQ Last administered on 10/04/16 10:37; Start 09/30/16 at 11:30 Sodium Chloride (Iv Sodium Chloride 0.45%) 1,000 ml @ 125 mls/hr Q8H IV Last administered on 10/02/16 20:11; Start 09/30/16 at 09:30; Stop 10/02/16 at 21:41; Status DC Insulin Detemir (Levemir) 10 units BID SQ Last administered on 10/02/16 07:58; Start 09/30/16 at 10:00; Stop 10/02/16 at 21:42; Status DC Albuterol/ Ipratropium (Duoneb) 3 ml RTQID NEB Last administered on 10/04/16 12 :01; Start 09/30/16 at 12:00 Pantoprazole Sodium (Protonix) 40 mg DAILYAC PO Last administered on 10/01/16 08:18; Start 10/01/16 at 07:30; Stop 10/01/16 at 13:26; Status DC Acetaminophen (Tylenol) 650 mg PRN Q6HRS PRN PO MILD PAIN / TEMP; Start at 12:45 Ondansetron HCl (Zofran) 4 mg PRN Q6HRS PRN IV NAUSEA/VOMITING, 1ST CHOICE Last administered on 10/03/16 22:04; Start 09/30/16 at 12:45 Enoxaparin Sodium (Lovenox 40mg Syringe) 40 mg Q24H SQ Last administered on 10/03 14:17; Start 09/30/16 at 13:00 Insulin Human Regular 10 unit 10 unit 1X ONCE IV Last administered on 17:30; Start 09/30/16 at 17:15; Stop 09/30/16 at 17:16; Status DC Promethazine HCl/ Sodium Chloride (Phenergan/Iv Sodium Chloride 0.9% 50ml) 50.25 ml @ 150.75 mls/ hr PRN Q6HRS PRN IV NAUSEA/VOMITING, 2ND CHOICE Last administered on 10/03/16 09:25; Start 09/30/16 at 17:15 Hydralazine HCl (Apresoline) 10 mg PRN Q4HRS PRN IVP ELEVATED BP, SEE COMMENTS Last administered on 10/03/16 03:15; Start 09/30/16 at 21:00 Metoclopramide HCl (Reglan) 10 mg PRN Q6HRS PRN IV NAUSEA/VOMITING, 3RD CHOICE Last administered on 10/02/16 17:01; Start 10/01/16 at 09:30; Stop 10/02/16 at 22: 00; Status DC Pantoprazole Sodium 40 mg 40 mg BIDAC IVP Last administered on 10/04/16 09:27; Start 10/01/16 at 16:30 Amino Acids/ Glycerin/ Electrolytes 1,000 ml @ 50 mls/hr Q20H IV Last administered on 10/03/16 22:12; Start 10/01/16 at 21:00 Potassium Chloride (KCl Premix 10meq) 100 ml @ 100 mls/hr Q1H IV Last administered on 10/02/16 13:00; Start 10/02/16 at 10:00; Stop 10/02/16 at 13:59; Status DC Insulin Detemir (Levemir) 15 units BID SQ Last administered on 10/02/16 23:03; Start 10/03/16 at 09:00; Stop 10/03/16 at 09:00; Status DC Metoclopramide HCl (Reglan) 10 mg Q8HRS IV Last administered on 10/03/16 05:31 ; Start 10/03/16 at 06:00; Stop 10/03/16 at 08:53; Status DC Insulin Detemir (Levemir) 15 units BID SQ Last administered on 10/04/16 09:36; Start 10/03/16 at 08:00; Stop 10/04/16 at 10:33; Status DC Metoclopramide HCl (Reglan) 10 mg Q6HRS IV ; Start 10/03/16 at 12:00; Stop at 12:00; Status DC Metoclopramide HCl (Reglan) 10 mg Q6HRS IV Last administered on 10/04/16 05:37 ; Start 10/03/16 at 12:00 Insulin Detemir (Levemir) 18 units BID SQ ; Start 10/04/16 at 21:00 Insulin Aspart (Novolog) 10 units 1X ONCE SQ Last administered on 10/04/16t 10: 37; Start 10/04/16 at 10:45; Stop 10/04/16 at 10:46; Status DC Insulin Aspart (Novolog) 5 units TIDAC SQ ; Start 10/04/16 at 11:30; Stop at 12:18; Status DC Insulin Aspart (Novolog) 10 units TIDAC SQ ; Start 10/04/16 at 16:30 Insulin Aspart (Novolog) 18 units 1X ONCE SQ ; Start 10/04/16 at 12:30; Stop 10/04/16 at 12:31; Status DC Active Scripts Active Levemir Flextouch (Insulin Detemir) 100 Unit/1 Ml Insuln.pen 15 Units SQ BID Cipro (Ciprofloxacin Hcl) 250 Mg Tablet 750 Mg PO BID 9 Days Reported Ibuprofen 800 Mg Tablet 800 Mg PO PRN Q6HRS PRN Humalog (Insulin Lispro) 100 Unit/1 Ml Cartridge 100 Unit SQ Vitals/I & O Vital Sign - Last 24 Hours 10/03/16 10/03/16 10/03/16 10/03/16 15:20 16:13 19:00 19:46 Temp 98.2 98.7 98.2 98.7 Pulse 119 111 Resp 16 20 18 B/P 116/69 137/78 Pulse Ox 95 97 93 O2 Delivery Room Air Room Air Room Air Room Air 10/03/16 10/03/16 10/04/16 10/04/16 20:33 23:00 03:00 07:00 Temp 98.7 98.8 98.4 98.7 98.8 98.4 Pulse 103 116 111 Resp 20 20 18 B/P 103/60 100/44 107/66 Pulse Ox 97 97 94 97 O2 Delivery Room Air Room Air Room Air Room Air 10/04/16 10/04/16 08:16 12:02 Pulse Ox 98 98 O2 Delivery Room Air Room Air Intake and Output 10/03/16 10/03/16 10/04/16 15:00 23:00 07:00 Intake Total 150 ml 600 ml Output Total 850 ml 1000 ml 900 ml Balance -700 ml -1000 ml -300 ml PETER SPENCE MD Oct 04, 2016 12:49
[2016-10-04] MEDS: ENOXAPARIN 40 MG/0.4 ML DISP.SYRIN. SQ SCH (13:06)
[2016-10-04 15:00] VITALS: BP 118/71
[2016-10-04] MEDS: NYSTATIN 100,000 UNITS/ML 5 ML ORAL.SUSP. SWSW SCH ×2 (16:46→22:48)
[2016-10-04 19:00] VITALS: BP 104/56
[2016-10-04] MEDS ORDERED: INSULIN DETEMIR 300 UNITS/3 ML INSULN.PEN. SQ SCH (21:00)
[2016-10-04 23:00] VITALS: BP 130/76
[2016-10-05 03:00] VITALS: BP 139/69
[2016-10-05] MEDS: AA 3%/ELECTROLYTE-TPN SOLN/GLY 1,000 ML IV SCH (05:00)
[2016-10-05 07:00] VITALS: BP 137/67
[2016-10-05] MEDS: IPRATRPIUM/ALBUTEROL 0.5/2.5MG 3 ML NEBU. NEB SCH ×2 (07:55→12:58)
[2016-10-05] MEDS: NYSTATIN 100,000 UNITS/ML 5 ML ORAL.SUSP. SWSW SCH ×2 (08:09→15:53)
[2016-10-05] MEDS: INSULIN ASPART 300 UNITS/3 ML INSULN.PEN SQ SCH ×4 (08:12→12:07)
[2016-10-05] MEDS: INSULIN DETEMIR 300 UNITS/3 ML INSULN.PEN. SQ SCH (08:13)
[2016-10-05] MEDS ORDERED: METOCLOPRAMIDE 10 MG TABLET PO SCH (09:00)
--- NOTE | 2016-10-05 10:38 | PDOC ---
Subjective: Subjective: Feels ready to go home. Tolerating full liquids w/o issue although orange juice burned going down. Re: swallowing, still no [employer] eval (ordered by neuro). Sometimes coughs w/ swallowing, sometimes it hurts to swallow, sometimes a lot of phlegm is involved , sometimes she's hoarse. Objective: Vital Signs: Vital Signs Date Time Temp Pulse Resp B/P Pulse Ox O2 Delivery O2 Flow Rate FiO2 10/05/16 07:55 99 Room Air 10/05/16 07:00 98.8 97 16 137/67 98.8 10/04/16 20:00 98.0 Labs: Laboratory Tests Test 10/04/16 16:25 10/04/16 21:04 10/05/16 07:38 Glucose (Fingerstick) 144mg/dL 136mg/dL 193mg/dL PE: GEN: NAD LUNGS: CTAB HEART: RRR ABD: NABS, S/ND/NT NEURO/PSYCH: A & O 3 A/P: Nausea/vomiting w/ DKA - resolved -tolerating clears w/o vomiting, wants to eat more -improved on IV Reglan QID and IV PPI BID - fell out yesterday Dysphagia/odynophagia -varying symptoms -neuro following, [employer] asked to see yesterday -added empiric Nystatin 10/04 -- Now on oral meds w/o replacement IV. Will switch from Reglan tabs to susp. Try soft diet. Await [employer] eval. AZIZA MARIE Oct 05, 2016 10:38
--- NOTE | 2016-10-05 10:49 | PDOC ---
PROGRESS NOTES Assessment Problems Medical Problems: (1) Acute renal failure Status: Acute (2) Diabetic ketoacidosis Status: Acute Metabolic encephalopathy. DKA Renal failure, acute Leukocytosis, WBC 28.2 Fatty liver. Nausea Vomiting. Diarrhea Abdominal pain Dysphagia, Speech therapy evaluation pending, GI has added empiric Nystatin Plan Await Speech therapy Also physical and occupational therapy Control diabetes Brain MRI if dysphagia persists Otherwise, home as soon as later today Subjective Still has dysphagia Objective Vital Signs Date Time Temp Pulse Resp B/P Pulse Ox O2 Delivery O2 Flow Rate FiO2 10/05/16 07:55 99 Room Air 10/05/16 07:00 98.8 97 16 137/67 98.8 10/04/16 20:00 98.0 Intake and Output 10/05/16 07:00 Intake Total 1690 ml Output Total 4850 ml Balance -3160 ml Intake Oral 1690 ml Output Urine Total 4850 ml PHYSICAL EXAM Alert. Oriented to time, place and person. PERRL. EOMI. CN: no focal findings. Muscle tone: normal. Muscle strength: 5/5 DTR: 1+ Plantar reflex: flexor Gait: not examined in bed. Sensory exam: stocking loss No cerebellar signs elicited. Review of Relevant I have reviewed the following items dena (where applicable) has been applied. Labs Laboratory Tests Test 10/03/16 11:23 10/03/16 16:47 10/03/16 21:06 10/04/16 06:20 Glucose (Fingerstick) 217mg/dL (70-99) 135mg/dL (70-99) 229mg/dL (70-99) White Blood Count 6.8x10^3/uL (4.0-11.0) Red Blood Count 4.23x10^6/uL (3.50-5.40) Hemoglobin 11.7g/dL (12.0-15.5) Hematocrit 36.5% (36.0-47.0) Mean Corpuscular Volume 86fL (79-100) Mean Corpuscular Hemoglobin 28pg (25-35) Mean Corpuscular Hemoglobin Concent 32g/dL (31-37) Red Cell Distribution Width 13.9% (11.5-14.5) Platelet Count 218x10^3/uL (140-400) Neutrophils (%) (Auto) 70% (31-73) Lymphocytes (%) (Auto) 20% (24-48) Monocytes (%) (Auto) 7% (0-9) Eosinophils (%) (Auto) 2% (0-3) Basophils (%) (Auto) 0% (0-3) Neutrophils # (Auto) 4.8x10^3uL (1.8-7.7) Lymphocytes # (Auto) 1.4x10^3/uL (1.0-4.8) Monocytes # (Auto) 0.5x10^3/uL (0.0-1.1) Eosinophils # (Auto) 0.1x10^3/uL (0.0-0.7) Basophils # (Auto) 0.0x10^3/uL (0.0-0.2) Sodium Level 137mmol/L (136-145) Potassium Level 3.5mmol/L (3.5-5.1) Chloride Level 101mmol/L (98-107) Carbon Dioxide Level 27mmol/L (21-32) Anion Gap 9 (6-14) Blood Urea Nitrogen 12mg/dL (7-20) Creatinine 0.7mg/dL (0.6-1.0) Estimated GFR (Cockcroft-Gault) 88.6 BUN/Creatinine Ratio 17 (6-20) Glucose Level 365mg/dL (70-99) Calcium Level 8.3mg/dL (8.5-10.1) Total Bilirubin 0.3mg/dL (0.2-1.0) Aspartate Amino Transf (AST/SGOT) 12U/L (15-37) Alanine Aminotransferase (ALT/SGPT) 9U/L (14-59) Alkaline Phosphatase 95U/L (46-116) Total Protein 6.0g/dL (6.4-8.2) Albumin 2.4g/dL (3.4-5.0) Albumin/Globulin Ratio 0.7 (1.0-1.7) Test 10/04/16 08:12 10/04/16 10:25 10/04/16 16:25 10/04/16 21:04 Glucose (Fingerstick) 364mg/dL (70-99) 483mg/dL (70-99) 144mg/dL (70-99) 136mg/dL (70-99) Test 10/05/16 07:38 Glucose (Fingerstick) 193mg/dL (70-99) Laboratory Tests Test 10/04/16 16:25 10/04/16 21:04 10/05/16 07:38 Glucose (Fingerstick) 144mg/dL (70-99) 136mg/dL (70-99) 193mg/dL (70-99) Microbiology 09/28/16 Blood Culture - Final, Complete NO GROWTH AFTER 5 DAYS Medications Current Medications Sodium Chloride 1,000 ml @ 1,000 mls/hr Q1H IV Last administered on 09/28/16 18:27; Start 09/28/16 at 18:03; Stop 09/28/16 at 20:02; Status DC Insulin Human Regular (Novolin R Iv Drip) 150 ml @ 0 mls/hr 1X ONCE IV Last administered on 09/28/16 18:58; Start 09/28/16 at 18:15; Stop 09/29/16 at 13:40; Status DC Ondansetron HCl (Zofran) 4 mg 1X ONCE IV Last administered on 09/28/16 18:20; Start 09/28/16 at 18:30; Stop 09/28/16 at 18:31; Status DC Ondansetron HCl (Zofran) 4 mg PRN Q8HRS PRN IV NAUSEA/VOMITING Last administered on 09/29/16 05:59; Start 09/28/16 at 19:30; Stop 09/29/16 at 19:29; Status DC Fentanyl Citrate (Fentanyl 2ml Vial) 50 mcg PRN Q2HR PRN IV PAIN Last administered on 09/29/16 06:00; Start 09/28/16 at 19:30; Stop 09/29/16 at 13:40; Status DC Acetaminophen 650 mg 650 mg PRN Q4HRS PRN PO FEVER; Start 09/28/16 at 19:30; Stop 09/29/16 at 19:29; Status DC Potassium Chloride 100 ml @ 100 mls/hr PRN Q1HR PRN IV SEE COMMENTS; Start 09/28/16 at 19:30; Stop 09/28/16 at 22:56; Status DC Potassium Chloride 100 ml @ 100 mls/hr PRN Q1HR PRN IV SEE COMMENTS; Start 09/28/16 at 19:30; Stop 09/28/16 at 22:56; Status DC Potassium Chloride 100 ml @ 100 mls/hr PRN Q1HR PRN IV SEE COMMENTS; Start 09/28/16 at 19:30; Stop 09/28/16 at 22:56; Status DC Sodium Chloride 1,000 ml @ 250 mls/hr Q4H IV Last administered on 09/29/16 08: 18; Start 09/28/16 at 20:14; Stop 09/29/16 at 11:05; Status DC Sodium Chloride 1,000 ml @ 500 mls/hr Q2H IV Last administered on 09/29/16 01: 00; Start 09/28/16 at 23:00; Stop 09/29/16 at 09:09; Status DC Sodium Chloride 1,000 ml @ 250 mls/hr Q4H IV Last administered on 09/29/16 08: 17; Start 09/28/16 at 23:00; Stop 09/29/16 at 11:05; Status DC Dextrose/Sodium Chloride 1,000 ml @ 250 mls/hr Q4H IV Last administered on 09/29 11:36; Start 09/28/16 at 23:00; Stop 09/29/16 at 13:40; Status DC Insulin Human Regular 150 unit/ Sodium Chloride 151.5 ml @ 0 mls/hr CONT PRN PRN IV PER PROTOCOL Last administered on 09/29/16 06:04; Start 09/28/16 at 23:00 ; Stop 10/01/16 at 17:17; Status DC Potassium Chloride 100 ml @ 100 mls/hr PRN Q1HR PRN IV SEE COMMENTS; Start 09/28/16 at 22:30; Stop 10/02/16 at 21:41; Status DC Potassium Chloride 100 ml @ 100 mls/hr PRN Q1HR PRN IV SEE COMMENTS; Start 09/28/16 at 22:30; Stop 10/02/16 at 21:41; Status DC Magnesium Sulfate/ Dextrose 100 ml @ 25 mls/hr DAILY IV ; Start 09/29/16 at 09: 00; Stop 09/29/16 at 09:00; Status DC Sodium Bicarbonate 50 meq/Sodium Chloride 1,050 ml @ 500 mls/hr Q2H6M PRN IV SEE COMMENTS; Start 09/28/16 at 23:15; Status Cancel Sodium Phosphate 40 mmol/Sodium Chloride 513.3333 ml @ 83.3 mls/hr 1X PRN PRN IV SEE COMMENTS; Start 09/28/16 at 22:30; Stop 09/30/16 at 12:37; Status DC Sodium Phosphate 20 mmol/Dextrose 256.6667 ml @ 62.5 mls/hr 1X PRN PRN IV SEE COMMENTS; Start 09/28/16 at 22:30; Stop 09/30/16 at 12:37; Status DC Sodium Phosphate/ Dextrose 253.3333 ml @ 62.5 mls/hr 1X PRN PRN IV SEE COMMENTS ; Start 09/28/16 at 22:30; Stop 10/02/16 at 21:41; Status DC Pantoprazole Sodium 40 mg 40 mg DAILYAC IVP Last administered on 09/30/16 08:42 ; Start 09/29/16 at 07:30; Stop 09/30/16 at 12:37; Status DC Sodium Bicarbonate/ Sodium Chloride (Iv Sodium Chloride 0.45%) 1,050 ml @ 500 mls/hr CONT PRN IV SEE DKA PROTOCOL; Start 09/29/16 at 03:30; Stop 09/29/16 at 13 :40; Status DC Dextrose 25 gm 25 gm STK-MED ONCE IV ; Start 09/29/16 at 06:53; Stop 09/29/16 at 06:54; Status DC Dextrose/Sodium Chloride (Iv D5% - 1/2 NS) 1,000 ml @ 75 mls/hr 1X PRN PRN IV SEE COMMENTS; Start 09/29/16 at 07:15; Stop 09/29/16 at 13:40; Status DC Dextrose 25 gm 1X ONCE IV Last administered on 09/29/16 08:16; Start 09/29/16 at 07:45; Stop 09/29/16 at 07:46; Status DC Insulin Aspart (Novolog) 0-9 UNITS TIDWMEALS SQ Last administered on 09/30/16 01:13; Start 09/29/16 at 17:00; Stop 09/30/16 at 09:30; Status DC Dextrose 12.5 gm 12.5 gm PRN Q15MIN PRN IV SEE COMMENTS; Start 09/29/16 at 12:45 Sodium Chloride (Iv Sodium Chloride 0.45%) 1,000 ml @ 75 mls/hr [id number] IV Last administered on 09/29/16 17:14; Start 09/29/16 at 13:45; Stop 09/30/16 at 09: 30; Status DC Acetaminophen/ Hydrocodone Bitart (Lortab 5/325) 1 tab PRN Q4HRS PRN PO MODERATE - SEVERE PAIN Last administered on 10/03/16 19:46; Start 09/29/16 at 18: 00 Morphine Sulfate 2 mg PRN Q2HR PRN IV PAIN Last administered on 10/01/16 05:20 ; Start 09/29/16 at 18:00; Stop 10/02/16 at 21:41; Status DC Morphine Sulfate 4 mg PRN Q2HR PRN IV PAIN; Start 09/29/16 at 18:00; Stop at 21:41; Status DC Guaifenesin (Robitussin) 200 mg PRN Q4HRS PRN PO COUGH; Start 09/29/16 at 18:00 Insulin Aspart (Novolog) 10 units 1X ONCE SQ Last administered on 09/29/16 22: 00; Start 09/29/16 at 22:00; Stop 09/29/16 at 22:01; Status DC Insulin Aspart (Novolog) 4 units 1X ONCE SQ Last administered on 09/30/16 08: 50; Start 09/30/16 at 08:45; Stop 09/30/16 at 08:47; Status DC Insulin Aspart 0-9 UNITS QIDACHS SQ Last administered on 10/05/16 08:13; Start 09/30/16 at 11:30 Sodium Chloride (Iv Sodium Chloride 0.45%) 1,000 ml @ 125 mls/hr Q8H IV Last administered on 10/02/16 20:11; Start 09/30/16 at 09:30; Stop 10/02/16 at 21:41; Status DC Insulin Detemir (Levemir) 10 units BID SQ Last administered on 10/02/16 07:58; Start 09/30/16 at 10:00; Stop 10/02/16 at 21:42; Status DC Albuterol/ Ipratropium (Duoneb) 3 ml RTQID NEB Last administered on 10/05/16 07:55; Start 09/30/16 at 12:00 Pantoprazole Sodium (Protonix) 40 mg DAILYAC PO Last administered on 10/01/16 08:18; Start 10/01/16 at 07:30; Stop 10/01/16 at 13:26; Status DC Acetaminophen (Tylenol) 650 mg PRN Q6HRS PRN PO MILD PAIN / TEMP; Start at 12:45 Ondansetron HCl (Zofran) 4 mg PRN Q6HRS PRN IV NAUSEA/VOMITING, 1ST CHOICE Last administered on 10/03/16 22:04; Start 09/30/16 at 12:45 Enoxaparin Sodium (Lovenox 40mg Syringe) 40 mg Q24H SQ Last administered on 10/04 13:06; Start 09/30/16 at 13:00 Insulin Human Regular 10 unit 10 unit 1X ONCE IV Last administered on 17:30; Start 09/30/16 at 17:15; Stop 09/30/16 at 17:16; Status DC Promethazine HCl/ Sodium Chloride (Phenergan/Iv Sodium Chloride 0.9% 50ml) 50.25 ml @ 150.75 mls/ hr PRN Q6HRS PRN IV NAUSEA/VOMITING, 2ND CHOICE Last administered on 10/03/16 09:25; Start 09/30/16 at 17:15 Hydralazine HCl (Apresoline) 10 mg PRN Q4HRS PRN IVP ELEVATED BP, SEE COMMENTS Last administered on 10/03/16 03:15; Start 09/30/16 at 21:00 Metoclopramide HCl (Reglan) 10 mg PRN Q6HRS PRN IV NAUSEA/VOMITING, 3RD CHOICE Last administered on 10/02/16 17:01; Start 10/01/16 at 09:30; Stop 10/02/16 at 22: 00; Status DC Pantoprazole Sodium 40 mg 40 mg BIDAC IVP Last administered on 10/04/16 16:45; Start 10/01/16 at 16:30; Stop 10/05/16 at 10:38; Status DC Amino Acids/ Glycerin/ Electrolytes 1,000 ml @ 50 mls/hr Q20H IV Last administered on 10/03/16 22:12; Start 10/01/16 at 21:00 Potassium Chloride (KCl Premix 10meq) 100 ml @ 100 mls/hr Q1H IV Last administered on 10/02/16 13:00; Start 10/02/16 at 10:00; Stop 10/02/16 at 13:59; Status DC Insulin Detemir (Levemir) 15 units BID SQ Last administered on 10/02/16 23:03; Start 10/03/16 at 09:00; Stop 10/03/16 at 09:00; Status DC Metoclopramide HCl (Reglan) 10 mg Q8HRS IV Last administered on 10/03/16 05:31 ; Start 10/03/16 at 06:00; Stop 10/03/16 at 08:53; Status DC Insulin Detemir (Levemir) 15 units BID SQ Last administered on 10/04/16 09:36; Start 10/03/16 at 08:00; Stop 10/04/16 at 10:33; Status DC Metoclopramide HCl (Reglan) 10 mg Q6HRS IV ; Start 10/03/16 at 12:00; Stop at 12:00; Status DC Metoclopramide HCl (Reglan) 10 mg Q6HRS IV Last administered on 10/04/16 18:00 ; Start 10/03/16 at 12:00; Stop 10/05/16 at 00:12; Status DC Insulin Detemir (Levemir) 18 units BID SQ ; Start 10/04/16 at 21:00; Stop at 21:00; Status DC Insulin Aspart (Novolog) 10 units 1X ONCE SQ Last administered on 10/04/16 10: 37; Start 10/04/16 at 10:45; Stop 10/04/16 at 10:46; Status DC Insulin Aspart (Novolog) 5 units TIDAC SQ ; Start 10/04/16 at 11:30; Stop at 12:18; Status DC Insulin Aspart (Novolog) 10 units TIDAC SQ Last administered on 10/05/16 08:12 ; Start 10/04/16 at 16:30 Insulin Aspart (Novolog) 18 units 1X ONCE SQ Last administered on 10/04/16 13: 12; Start 10/04/16 at 12:30; Stop 10/04/16 at 12:31; Status DC Insulin Detemir (Levemir) 25 units BID SQ Last administered on 10/05/16 08:13 ; Start 10/04/16 at 21:00 Nystatin 5 ml [id number] Last administered on 10/05/16 08:09; Start 10/04/16 at 17:00 Metoclopramide HCl (Reglan) 10 mg TID PO Last administered on 10/05/16 08:09; Start 10/05/16 at 09:00; Stop 10/05/16 at 10:38; Status DC Metoclopramide HCl (Reglan) 10 mg QIDACHS PO ; Start 10/05/16 at 11:30 Pantoprazole Sodium (Protonix) 40 mg DAILYAC PO ; Start 10/06/16 at 07:30 Active Scripts Active Levemir Flextouch (Insulin Detemir) 100 Unit/1 Ml Insuln.pen 15 Units SQ BID Cipro (Ciprofloxacin Hcl) 250 Mg Tablet 750 Mg PO BID 9 Days Reported Ibuprofen 800 Mg Tablet 800 Mg PO PRN Q6HRS PRN Humalog (Insulin Lispro) 100 Unit/1 Ml Cartridge 100 Unit SQ Vitals/I & O Vital Sign - Last 24 Hours 10/04/16 10/04/16 10/04/16 10/04/16 11:00 12:02 15:00 16:43 Temp 98.8 98.4 98.8 98.4 Pulse 113 109 Resp 18 B/P 134/71 118/71 Pulse Ox 97 98 96 O2 Delivery Room Air Room Air Room Air Room Air 10/04/16 10/04/16 10/04/16 10/05/16 19:00 20:00 23:00 03:00 Temp 98.7 98.6 98.8 98.7 98.6 98.8 Pulse 103 80 96 Resp 18 18 20 B/P 104/56 130/76 139/69 Pulse Ox 97 95 98 O2 Delivery Room Air Room Air Room Air O2 Flow Rate 98.0 10/05/16 10/05/16 07:00 07:55 Temp 98.8 98.8 Pulse 97 Resp 16 B/P 137/67 Pulse Ox 98 99 O2 Delivery Room Air Room Air Intake and Output 10/04/16 10/04/16 10/05/16 15:00 23:00 07:00 Intake Total 1570 ml 120 ml Output Total 4050 ml 800 ml Balance -2480 ml -680 ml LACEY FUENTES MD Oct 05, 2016 10:49
[2016-10-05 11:00] VITALS: BP 127/62
[2016-10-05] MEDS ORDERED: METOCLOPRAMIDE HCL 10 MG/10 ML SOLUTION. PO SCH (11:30)
--- NOTE | 2016-10-05 14:35 | PDOC ---
PROGRESS NOTES Chief Complaint Chief Complaint DKA acute encephalopathy ASSESSMENT AND PLAN: 1. DKA: resolved, but blood sugar running very high again 2. AMS with 1, metabolic encephalopathy: much improved, finally 3. Hyperglycemia: ongoing, poorly controlled. increase Detemir to 25 BID, add 10 TID meal, 4. Intractable N/V: improving, not resolved. suspect gastroparesis. increase Reglan to ATC qid for now a per Dr Phipps 5. Bronchitis: likely viral infection. resolving. treat symptomatically 6. Leukocytosis: resolved 7. SIRS: resolved 8. Prophylaxis: lovenox, PPI History of Present Illness History of Present Illness weakness nausea and lethargy does not feel ready for dc Vitals Vitals Vital Signs Date Time Temp Pulse Resp B/P Pulse Ox O2 Delivery O2 Flow Rate FiO2 10/05/16 12:58 99 Room Air 10/05/16 11:00 100.8 121 19 127/62 100.8 10/05/16 08:00 98.0 Physical Exam General: Alert, Oriented X3, Cooperative, No acute distress Heart: Regular rate Lungs: Clear Abdomen: Normal bowel sounds, No tenderness Extremities: No clubbing, No edema Skin: No rashes Labs LABS Laboratory Tests Test 10/04/16 16:25 10/04/16 21:04 10/05/16 07:38 10/05/16 10:57 Glucose (Fingerstick) 144mg/dL (70-99) 136mg/dL (70-99) 193mg/dL (70-99) 133mg/dL (70-99) Assessment and Plan Assessmemt and Plan DC home Problems Medical Problems: (1) Acute renal failure Status: Acute (2) Diabetic ketoacidosis Status: Acute Problems: Comment Review of Relevant I have reviewed the following items edna (where applicable) has been applied. Labs Laboratory Tests Test 10/03/16 16:47 10/03/16 21:06 10/04/16 06:20 10/04/16 08:12 Glucose (Fingerstick) 135mg/dL (70-99) 229mg/dL (70-99) 364mg/dL (70-99) White Blood Count 6.8x10^3/uL (4.0-11.0) Red Blood Count 4.23x10^6/uL (3.50-5.40) Hemoglobin 11.7g/dL (12.0-15.5) Hematocrit 36.5% (36.0-47.0) Mean Corpuscular Volume 86fL (79-100) Mean Corpuscular Hemoglobin 28pg (25-35) Mean Corpuscular Hemoglobin Concent 32g/dL (31-37) Red Cell Distribution Width 13.9% (11.5-14.5) Platelet Count 218x10^3/uL (140-400) Neutrophils (%) (Auto) 70% (31-73) Lymphocytes (%) (Auto) 20% (24-48) Monocytes (%) (Auto) 7% (0-9) Eosinophils (%) (Auto) 2% (0-3) Basophils (%) (Auto) 0% (0-3) Neutrophils # (Auto) 4.8x10^3uL (1.8-7.7) Lymphocytes # (Auto) 1.4x10^3/uL (1.0-4.8) Monocytes # (Auto) 0.5x10^3/uL (0.0-1.1) Eosinophils # (Auto) 0.1x10^3/uL (0.0-0.7) Basophils # (Auto) 0.0x10^3/uL (0.0-0.2) Sodium Level 137mmol/L (136-145) Potassium Level 3.5mmol/L (3.5-5.1) Chloride Level 101mmol/L (98-107) Carbon Dioxide Level 27mmol/L (21-32) Anion Gap 9 (6-14) Blood Urea Nitrogen 12mg/dL (7-20) Creatinine 0.7mg/dL (0.6-1.0) Estimated GFR (Cockcroft-Gault) 88.6 BUN/Creatinine Ratio 17 (6-20) Glucose Level 365mg/dL (70-99) Calcium Level 8.3mg/dL (8.5-10.1) Total Bilirubin 0.3mg/dL (0.2-1.0) Aspartate Amino Transf (AST/SGOT) 12U/L (15-37) Alanine Aminotransferase (ALT/SGPT) 9U/L (14-59) Alkaline Phosphatase 95U/L (46-116) Total Protein 6.0g/dL (6.4-8.2) Albumin 2.4g/dL (3.4-5.0) Albumin/Globulin Ratio 0.7 (1.0-1.7) Test 10/04/16 10:25 10/04/16 16:25 10/04/16 21:04 10/05/16 07:38 Glucose (Fingerstick) 483mg/dL (70-99) 144mg/dL (70-99) 136mg/dL (70-99) 193mg/dL (70-99) Test 10/05/16 10:57 Glucose (Fingerstick) 133mg/dL (70-99) Laboratory Tests Test 10/04/16 16:25 10/04/16 21:04 10/05/16 07:38 10/05/16 10:57 Glucose (Fingerstick) 144mg/dL (70-99) 136mg/dL (70-99) 193mg/dL (70-99) 133mg/dL (70-99) Microbiology 09/28/16 Blood Culture - Final, Complete NO GROWTH AFTER 5 DAYS Medications Current Medications Sodium Chloride 1,000 ml @ 1,000 mls/hr Q1H IV Last administered on 09/28/16 18:27; Start 09/28/16 at 18:03; Stop 09/28/16 at 20:02; Status DC Insulin Human Regular (Novolin R Iv Drip) 150 ml @ 0 mls/hr 1X ONCE IV Last administered on 09/28/16 18:58; Start 09/28/16 at 18:15; Stop 09/29/16 at 13:40; Status DC Ondansetron HCl (Zofran) 4 mg 1X ONCE IV Last administered on 09/28/16 18:20; Start 09/28/16 at 18:30; Stop 09/28/16 at 18:31; Status DC Ondansetron HCl (Zofran) 4 mg PRN Q8HRS PRN IV NAUSEA/VOMITING Last administered on 09/29/16 05:59; Start 09/28/16 at 19:30; Stop 09/29/16 at 19:29; Status DC Fentanyl Citrate (Fentanyl 2ml Vial) 50 mcg PRN Q2HR PRN IV PAIN Last administered on 09/29/16 06:00; Start 09/28/16 at 19:30; Stop 09/29/16 at 13:40; Status DC Acetaminophen 650 mg 650 mg PRN Q4HRS PRN PO FEVER; Start 09/28/16 at 19:30; Stop 09/29/16 at 19:29; Status DC Potassium Chloride 100 ml @ 100 mls/hr PRN Q1HR PRN IV SEE COMMENTS; Start 09/28/16 at 19:30; Stop 09/28/16 at 22:56; Status DC Potassium Chloride 100 ml @ 100 mls/hr PRN Q1HR PRN IV SEE COMMENTS; Start 09/28/16 at 19:30; Stop 09/28/16 at 22:56; Status DC Potassium Chloride 100 ml @ 100 mls/hr PRN Q1HR PRN IV SEE COMMENTS; Start 09/28/16 at 19:30; Stop 09/28/16 at 22:56; Status DC Sodium Chloride 1,000 ml @ 250 mls/hr Q4H IV Last administered on 09/29/16 08: 18; Start 09/28/16 at 20:14; Stop 09/29/16 at 11:05; Status DC Sodium Chloride 1,000 ml @ 500 mls/hr Q2H IV Last administered on 09/29/16 01: 00; Start 09/28/16 at 23:00; Stop 09/29/16 at 09:09; Status DC Sodium Chloride 1,000 ml @ 250 mls/hr Q4H IV Last administered on 09/29/16 08: 17; Start 09/28/16 at 23:00; Stop 09/29/16 at 11:05; Status DC Dextrose/Sodium Chloride 1,000 ml @ 250 mls/hr Q4H IV Last administered on 09/29 11:36; Start 09/28/16 at 23:00; Stop 09/29/16 at 13:40; Status DC Insulin Human Regular 150 unit/ Sodium Chloride 151.5 ml @ 0 mls/hr CONT PRN PRN IV PER PROTOCOL Last administered on 09/29/16 06:04; Start 09/28/16 at 23:00 ; Stop 10/01/16 at 17:17; Status DC Potassium Chloride 100 ml @ 100 mls/hr PRN Q1HR PRN IV SEE COMMENTS; Start 09/28/16 at 22:30; Stop 10/02/16 at 21:41; Status DC Potassium Chloride 100 ml @ 100 mls/hr PRN Q1HR PRN IV SEE COMMENTS; Start 09/28/16 at 22:30; Stop 10/02/16 at 21:41; Status DC Magnesium Sulfate/ Dextrose 100 ml @ 25 mls/hr DAILY IV ; Start 09/29/16 at 09: 00; Stop 09/29/16 at 09:00; Status DC Sodium Bicarbonate 50 meq/Sodium Chloride 1,050 ml @ 500 mls/hr Q2H6M PRN IV SEE COMMENTS; Start 09/28/16 at 23:15; Status Cancel Sodium Phosphate 40 mmol/Sodium Chloride 513.3333 ml @ 83.3 mls/hr 1X PRN PRN IV SEE COMMENTS; Start 09/28/16 at 22:30; Stop 09/30/16 at 12:37; Status DC Sodium Phosphate 20 mmol/Dextrose 256.6667 ml @ 62.5 mls/hr 1X PRN PRN IV SEE COMMENTS; Start 09/28/16 at 22:30; Stop 09/30/16 at 12:37; Status DC Sodium Phosphate/ Dextrose 253.3333 ml @ 62.5 mls/hr 1X PRN PRN IV SEE COMMENTS ; Start 09/28/16 at 22:30; Stop 10/02/16 at 21:41; Status DC Pantoprazole Sodium 40 mg 40 mg DAILYAC IVP Last administered on 09/30/16t 08:42 ; Start 09/29/16 at 07:30; Stop 09/30/16 at 12:37; Status DC Sodium Bicarbonate/ Sodium Chloride (Iv Sodium Chloride 0.45%) 1,050 ml @ 500 mls/hr CONT PRN IV SEE DKA PROTOCOL; Start 09/29/16 at 03:30; Stop 09/29/16 at 13 :40; Status DC Dextrose 25 gm 25 gm STK-MED ONCE IV ; Start 09/29/16 at 06:53; Stop 09/29/16 at 06:54; Status DC Dextrose/Sodium Chloride (Iv D5% - 1/2 NS) 1,000 ml @ 75 mls/hr 1X PRN PRN IV SEE COMMENTS; Start 09/29/16 at 07:15; Stop 09/29/16 at 13:40; Status DC Dextrose 25 gm 1X ONCE IV Last administered on 09/29/16t 08:16; Start 09/29/16 at 07:45; Stop 09/29/16 at 07:46; Status DC Insulin Aspart (Novolog) 0-9 UNITS TIDWMEALS SQ Last administered on 09/30/16 01:13; Start 09/29/16 at 17:00; Stop 09/30/16 at 09:30; Status DC Dextrose 12.5 gm 12.5 gm PRN Q15MIN PRN IV SEE COMMENTS; Start 09/29/16 at 12:45 Sodium Chloride (Iv Sodium Chloride 0.45%) 1,000 ml @ 75 mls/hr [id number] IV Last administered on 09/29/16 17:14; Start 09/29/16 at 13:45; Stop 09/30/16 at 09: 30; Status DC Acetaminophen/ Hydrocodone Bitart (Lortab 5/325) 1 tab PRN Q4HRS PRN PO MODERATE - SEVERE PAIN Last administered on 10/03/16 19:46; Start 09/29/16 at 18: 00 Morphine Sulfate 2 mg PRN Q2HR PRN IV PAIN Last administered on 10/01/16 05:20 ; Start 09/29/16 at 18:00; Stop 10/02/16 at 21:41; Status DC Morphine Sulfate 4 mg PRN Q2HR PRN IV PAIN; Start 09/29/16 at 18:00; Stop at 21:41; Status DC Guaifenesin (Robitussin) 200 mg PRN Q4HRS PRN PO COUGH; Start 09/29/16 at 18:00 Insulin Aspart (Novolog) 10 units 1X ONCE SQ Last administered on 09/29/16 22: 00; Start 09/29/16 at 22:00; Stop 09/29/16 at 22:01; Status DC Insulin Aspart (Novolog) 4 units 1X ONCE SQ Last administered on 09/30/16 08: 50; Start 09/30/16 at 08:45; Stop 09/30/16 at 08:47; Status DC Insulin Aspart 0-9 UNITS QIDACHS SQ Last administered on 10/05/16 08:13; Start 09/30/16 at 11:30 Sodium Chloride (Iv Sodium Chloride 0.45%) 1,000 ml @ 125 mls/hr Q8H IV Last administered on 10/02/16 20:11; Start 09/30/16 at 09:30; Stop 10/02/16 at 21:41; Status DC Insulin Detemir (Levemir) 10 units BID SQ Last administered on 10/02/16 07:58; Start 09/30/16 at 10:00; Stop 10/02/16 at 21:42; Status DC Albuterol/ Ipratropium (Duoneb) 3 ml RTQID NEB Last administered on 10/05/16 12:58; Start 09/30/16 at 12:00 Pantoprazole Sodium (Protonix) 40 mg DAILYAC PO Last administered on 10/01/16 08:18; Start 10/01/16 at 07:30; Stop 10/01/16 at 13:26; Status DC Acetaminophen (Tylenol) 650 mg PRN Q6HRS PRN PO MILD PAIN / TEMP; Start at 12:45 Ondansetron HCl (Zofran) 4 mg PRN Q6HRS PRN IV NAUSEA/VOMITING, 1ST CHOICE Last administered on 10/03/16 22:04; Start 09/30/16 at 12:45 Enoxaparin Sodium (Lovenox 40mg Syringe) 40 mg Q24H SQ Last administered on 10/04 13:06; Start 09/30/16 at 13:00 Insulin Human Regular 10 unit 10 unit 1X ONCE IV Last administered on 17:30; Start 09/30/16 at 17:15; Stop 09/30/16 at 17:16; Status DC Promethazine HCl/ Sodium Chloride (Phenergan/Iv Sodium Chloride 0.9% 50ml) 50.25 ml @ 150.75 mls/ hr PRN Q6HRS PRN IV NAUSEA/VOMITING, 2ND CHOICE Last administered on 10/03/16 09:25; Start 09/30/16 at 17:15 Hydralazine HCl (Apresoline) 10 mg PRN Q4HRS PRN IVP ELEVATED BP, SEE COMMENTS Last administered on 10/03/16 03:15; Start 09/30/16 at 21:00 Metoclopramide HCl (Reglan) 10 mg PRN Q6HRS PRN IV NAUSEA/VOMITING, 3RD CHOICE Last administered on 10/02/16 17:01; Start 10/01/16 at 09:30; Stop 10/02/16 at 22: 00; Status DC Pantoprazole Sodium 40 mg 40 mg BIDAC IVP Last administered on 10/04/16 16:45; Start 10/01/16 at 16:30; Stop 10/05/16 at 10:38; Status DC Amino Acids/ Glycerin/ Electrolytes 1,000 ml @ 50 mls/hr Q20H IV Last administered on 10/03/16 22:12; Start 10/01/16 at 21:00 Potassium Chloride (KCl Premix 10meq) 100 ml @ 100 mls/hr Q1H IV Last administered on 10/02/16 13:00; Start 10/02/16 at 10:00; Stop 10/02/16 at 13:59; Status DC Insulin Detemir (Levemir) 15 units BID SQ Last administered on 10/02/16 23:03; Start 10/03/16 at 09:00; Stop 10/03/16 at 09:00; Status DC Metoclopramide HCl (Reglan) 10 mg Q8HRS IV Last administered on 10/03/16 05:31 ; Start 10/03/16 at 06:00; Stop 10/03/16 at 08:53; Status DC Insulin Detemir (Levemir) 15 units BID SQ Last administered on 10/04/16 09:36; Start 10/03/16 at 08:00; Stop 10/04/16 at 10:33; Status DC Metoclopramide HCl (Reglan) 10 mg Q6HRS IV ; Start 10/03/16 at 12:00; Stop at 12:00; Status DC Metoclopramide HCl (Reglan) 10 mg Q6HRS IV Last administered on 10/04/16 18:00 ; Start 10/03/16 at 12:00; Stop 10/05/16 at 00:12; Status DC Insulin Detemir (Levemir) 18 units BID SQ ; Start 10/04/16 at 21:00; Stop at 21:00; Status DC Insulin Aspart (Novolog) 10 units 1X ONCE SQ Last administered on 10/04/16 10: 37; Start 10/04/16 at 10:45; Stop 10/04/16 at 10:46; Status DC Insulin Aspart (Novolog) 5 units TIDAC SQ ; Start 10/04/16 at 11:30; Stop at 12:18; Status DC Insulin Aspart (Novolog) 10 units TIDAC SQ Last administered on 10/05/16 12:07 ; Start 10/04/16 at 16:30 Insulin Aspart (Novolog) 18 units 1X ONCE SQ Last administered on 10/04/16 13: 12; Start 10/04/16 at 12:30; Stop 10/04/16 at 12:31; Status DC Insulin Detemir (Levemir) 25 units BID SQ Last administered on 10/05/16 08:13 ; Start 10/04/16 at 21:00 Nystatin 5 ml [id number] Last administered on 10/05/16 08:09; Start 10/04/16 at 17:00 Metoclopramide HCl (Reglan) 10 mg TID PO Last administered on 10/05/16 08:09; Start 10/05/16 at 09:00; Stop 10/05/16 at 10:38; Status DC Metoclopramide HCl (Reglan) 10 mg QIDACHS PO Last administered on 10/05/16 12: 01; Start 10/05/16 at 11:30 Pantoprazole Sodium (Protonix) 40 mg DAILYAC PO ; Start 10/06/16 at 07:30; Stop 10/06/16 at 07:30; Status DC Pantoprazole Sodium (Protonix) 40 mg BIDAC PO ; Start 10/06/16 at 09:00 Active Scripts Active Levemir Flextouch (Insulin Detemir) 100 Unit/1 Ml Insuln.pen 15 Units SQ BID Cipro (Ciprofloxacin Hcl) 250 Mg Tablet 750 Mg PO BID 9 Days Reported Ibuprofen 800 Mg Tablet 800 Mg PO PRN Q6HRS PRN Humalog (Insulin Lispro) 100 Unit/1 Ml Cartridge 100 Unit SQ Vitals/I & O Vital Sign - Last 24 Hours 10/04/16 10/04/16 10/04/16 10/04/16 15:00 16:43 19:00 20:00 Temp 98.4 98.7 98.4 98.7 Pulse 109 103 Resp 18 18 B/P 118/71 104/56 Pulse Ox 96 97 O2 Delivery Room Air Room Air Room Air Room Air O2 Flow Rate 98.0 10/04/16 10/05/16 10/05/16 10/05/16 23:00 03:00 07:00 07:55 Temp 98.6 98.8 98.8 98.6 98.8 98.8 Pulse 80 96 97 Resp 18 20 16 B/P 130/76 139/69 137/67 Pulse Ox 95 98 98 99 O2 Delivery Room Air Room Air Room Air 10/05/16 10/05/16 10/05/16 08:00 11:00 12:58 Temp 100.8 100.8 Pulse 121 Resp 19 B/P 127/62 Pulse Ox 99 99 O2 Delivery Room Air Room Air Room Air O2 Flow Rate 98.0 Intake and Output 10/04/16 10/04/16 10/05/16 15:00 23:00 07:00 Intake Total 1570 ml 120 ml Output Total 4050 ml 800 ml Balance -2480 ml -680 ml PETER SPENCE MD Oct 05, 2016 14:35
[2016-10-05] MEDS ORDERED: INSU100I27 SQ (14:36)
[2016-10-05] MEDS ORDERED: INSU100I17 SQ (14:36)
[2016-10-05] MEDS ORDERED: PANT40TA5 PO (14:37)
[2016-10-05 15:00] VITALS: BP 98/62
[2016-10-05] MEDS: ENOXAPARIN 40 MG/0.4 ML DISP.SYRIN. SQ SCH (15:54)
--- NOTE | 2016-10-05 22:31 | PDOC3 ---
Discharge Summary Visit Information Date of Admission: Sep 28, 2016 Date of Discharge: Oct 05, 2016 Admitting Diagnosis: DKA Final Diagnosis 1. DKA: resolved, 2 metabolic encephalopathy: 3. Detemir to 25 BID, add 10 TID meal, 4. Intractable N/V: Reglan to ATC 5. Bronchitis: likely viral infection. 6. Leukocytosis: 7. SIRS: Problems Medical Problems: (1) Acute renal failure Status: Acute (2) Diabetic ketoacidosis Status: Acute Brief Hospital Course Allergies Allergies Coded Allergies Type Severity Reaction Last Updated Verified No Known Drug Allergies 07/01/16 No Vital Signs Vital Signs Date Time Temp Pulse Resp B/P Pulse Ox O2 Delivery O2 Flow Rate FiO2 10/05/16 15:00 100.4 112 19 98/62 98 Room Air 100.4 10/05/16 08:00 98.0 Lab Results Laboratory Tests Test 10/04/16 06:20 10/04/16 08:12 10/04/16 10:25 10/04/16 16:25 White Blood Count 6.8x10^3/uL (4.0-11.0) Red Blood Count 4.23x10^6/uL (3.50-5.40) Hemoglobin 11.7g/dL (12.0-15.5) Hematocrit 36.5% (36.0-47.0) Mean Corpuscular Volume 86fL (79-100) Mean Corpuscular Hemoglobin 28pg (25-35) Mean Corpuscular Hemoglobin Concent 32g/dL (31-37) Red Cell Distribution Width 13.9% (11.5-14.5) Platelet Count 218x10^3/uL (140-400) Neutrophils (%) (Auto) 70% (31-73) Lymphocytes (%) (Auto) 20% (24-48) Monocytes (%) (Auto) 7% (0-9) Eosinophils (%) (Auto) 2% (0-3) Basophils (%) (Auto) 0% (0-3) Neutrophils # (Auto) 4.8x10^3uL (1.8-7.7) Lymphocytes # (Auto) 1.4x10^3/uL (1.0-4.8) Monocytes # (Auto) 0.5x10^3/uL (0.0-1.1) Eosinophils # (Auto) 0.1x10^3/uL (0.0-0.7) Basophils # (Auto) 0.0x10^3/uL (0.0-0.2) Sodium Level 137mmol/L (136-145) Potassium Level 3.5mmol/L (3.5-5.1) Chloride Level 101mmol/L (98-107) Carbon Dioxide Level 27mmol/L (21-32) Anion Gap 9 (6-14) Blood Urea Nitrogen 12mg/dL (7-20) Creatinine 0.7mg/dL (0.6-1.0) Estimated GFR (Cockcroft-Gault) 88.6 BUN/Creatinine Ratio 17 (6-20) Glucose Level 365mg/dL (70-99) Calcium Level 8.3mg/dL (8.5-10.1) Total Bilirubin 0.3mg/dL (0.2-1.0) Aspartate Amino Transf (AST/SGOT) 12U/L (15-37) Alanine Aminotransferase (ALT/SGPT) 9U/L (14-59) Alkaline Phosphatase 95U/L (46-116) Total Protein 6.0g/dL (6.4-8.2) Albumin 2.4g/dL (3.4-5.0) Albumin/Globulin Ratio 0.7 (1.0-1.7) Glucose (Fingerstick) 364mg/dL (70-99) 483mg/dL (70-99) 144mg/dL (70-99) Test 10/04/16 21:04 10/05/16 07:38 10/05/16 10:57 Glucose (Fingerstick) 136mg/dL (70-99) 193mg/dL (70-99) 133mg/dL (70-99) Laboratory Tests Test 10/05/16 07:38 10/05/16 10:57 Glucose (Fingerstick) 193mg/dL (70-99) 133mg/dL (70-99) Brief Hospital Course Ms. Woods is a 51 old female admitted through the ER 09/28/16 n/v and abdominal pain w/ elevated blood sugars treated for DKA viral illness exac WBC 28 to 7 poor compliance and control A1c 10.3. DC home, manage depression, est primary care f/u [facility] or [facility] Discharge Information Condition at Discharge: Improved Follow Up: Weeks Disposition/Orders: D/C to Home Scheduled Insulin Aspart (Novolog Flexpen) 10 UNITS SQ TIDAC Insulin Detemir (Levemir Flextouch) 25 UNITS SQ BID Pantoprazole Sodium (Pantoprazole Sodium) 40 MG PO DAILY Scheduled PRN Ibuprofen (Ibuprofen) 800 MG PO PRN Q6HRS PRN PRN INFLAMMATION (Reported) Miscellaneous Medications Insulin Lispro (Humalog) 100 UNIT SQ (Reported) Discontinued Medications Ciprofloxacin Hcl (Cipro) 750 MG PO BID Insulin Detemir (Levemir Flextouch) 15 UNITS SQ BID Patient Instructions Patient Instructions aspart 10 TID time > 30 min PETER SPENCE MD Oct 05, 2016 22:31
[2016-10-06] MEDS ORDERED: PANTOPRAZOLE 40 MG TABLET. PO SCH ×2 (07:30→09:00)
== END 2016-10-05 16:50 | disposition home or self-care (01) | DRG 682 ==
LOC: ER 16:53 → 1 WEST ICU 19:09 → 5 SOUTH 09-29 14:43
PROVIDERS: ADMIT Internal Medicine Hematology & Oncology; ATTEND Internal Medicine Hematology & Oncology
DX: N17.9 Acute kidney failure, unspecified (principal); E10.10 Type 1 diabetes mellitus with ketoacidosis without coma; G93.41 Metabolic encephalopathy; R65.10 Systemic inflammatory response syndrome (SIRS) of non-infectious origin without acute organ dysfunction; E86.0 Dehydration; D72.829 Elevated white blood cell count, unspecified; E03.9 Hypothyroidism, unspecified; E10.649 Type 1 diabetes mellitus with hypoglycemia without coma; F32.9 Major depressive disorder, single episode, unspecified; F41.9 Anxiety disorder, unspecified; J20.8 Acute bronchitis due to other specified organisms; K31.84 Gastroparesis; K76.0 Fatty (change of) liver, not elsewhere classified; Z60.2 Problems related to living alone; E10.43 Type 1 diabetes mellitus with diabetic autonomic (poly)neuropathy; R13.10 Dysphagia, unspecified; Z82.49 Family history of ischemic heart disease and other diseases of the circulatory system; Z83.3 Family history of diabetes mellitus; Z87.440 Personal history of urinary (tract) infections
CPT/HCPCS: 36415; 70450; 71010; 76700; 80048; 80053; 80076; 81001; 81025; 82553; 82607; 82947; 83036; 83605; 83690; 83735; 83930; 84100; 84443; 84484; 85007; 85027; 87040; 87641; 93005; 94250; 94640; 94760; 96365; 96375; C9113; G0480; G0481; J0360; J1650; J1815; J2270; J2405; J2550; J2765; J3010; J3480; J7030; J7042; J7620; J8597; 92610; 97116; 99291-25

== ENCOUNTER 2018-07-21 13:35 | Emergency (ER) | payer SELFPAY ==
[~2018-07-21] VITALS: Ht 162.6 cm; Wt 56.7 kg
[~2018-07-21 13:35] MED LIST changes: +INSU100I17 SQ; +PANT40TA5 PO
[2018-07-21] MEDS ORDERED: DIPHTH,PERTUSS(ACELL),TET TOX 0.5 ML DISP.SYRIN. VAX IM ONE (14:00)
--- NOTE | 2018-07-21 14:00 | PHYS DOC ---
Past Medical History Past Medical History: Anxiety, Depression, Diabetes-Type I Additional Past Medical Histor: type 1 dm Past Surgical History: , Other Additional Past Surgical Histo: cataract bilat Alcohol Use: None Drug Use: None Adult General Chief Complaint Chief Complaint: FACE PROBLEM HPI HPI Patient is a 53 year old female with history of diabetes type 1, depression, anxiety, who presents today complaining of nausea injury that occurred a week ago. Patient states a week ago she hit her nose on a soap dispenser. She states she has noted increased swelling and redness and yellow drainage/mucous coming from the nose. Patient denies any fever. Denies any difficulty breathing. Review of Systems Review of Systems Constitutional: Denies fever or chills [] Eyes: Denies change in visual acuity, redness, or eye pain [] HENT: Reports nose injury. Denies nasal congestion or sore throat [] Respiratory: Denies cough or shortness of breath [] Cardiovascular: No additional information not addressed in HPI [] GI: Denies abdominal pain, nausea, vomiting, bloody stools or diarrhea [] : Denies dysuria or hematuria [] Musculoskeletal: Denies back pain or joint pain [] Integument: Denies rash or skin lesions [] Neurologic: Denies headache, focal weakness or sensory changes [] All other systems were reviewed and found to be within normal limits, except as documented in this note. Current Medications Current Medications Current Medications Medications (Trade) Dose Ordered Sig/Reji Start Time Stop Time Status Last Admin Dose Admin Diphtheria/ Tetanus/Acell Pertussis (Boostrix) 0.5 ml ONCE ONCE 07/21/18 14:00 07/21/18 14:01 DC 07/21/18 14:30 0.5 ML Info (CONTRAST GIVEN -- Rx MONITORING) 1 each PRN DAILY PRN 07/21/18 14:30 07/23/18 14:29 Iohexol (Omnipaque 300 Mg/ml) 70 ml 1X ONCE 07/21/18 14:15 07/21/18 14:18 DC Allergies Allergies Allergies Coded Allergies Type Severity Reaction Last Updated Verified No Known Drug Allergies 07/01/16 No Physical Exam Physical Exam Constitutional: Well developed, well nourished, no acute distress, non-toxic appearance. [] HENT: Normocephalic, atraumatic, bilateral external ears normal, oropharynx moist, no oral exudates, Anterior nose tip is swollen and erythematous. Bilateral nasal cavities appear swollen and erythematous left worse than right, there is mucus/yellow drainage in the left nasal cavity. Eyes: PERRLA, EOMI, conjunctiva normal, no discharge. [] Neck: Normal range of motion, no tenderness, supple, no stridor. [] Cardiovascular:Heart rate regular rhythm, no murmur [] Lungs & Thorax: Bilateral breath sounds clear to auscultation [] Abdomen: Bowel sounds normal, soft, no tenderness, no masses, no pulsatile masses. [] Skin: Warm, dry, no erythema, no rash. [] Back: No tenderness, no CVA tenderness. [] Extremities: No tenderness, no cyanosis, no clubbing, ROM intact, no edema. [] Neurologic: Alert and oriented X 3, normal motor function, normal sensory function, no focal deficits noted. [] Psychologic: Affect normal, judgement normal, mood normal. [] Current Patient Data Vital Signs Vital Signs Date Time Temp Pulse Resp B/P (MAP) Pulse Ox O2 Delivery O2 Flow Rate FiO2 07/21/18 13:44 98.1 94 18 123/58 (79) 100 Room Air 98.1 EKG EKG [] Radiology/Procedures Radiology/Procedures []PROCEDURE: CT MAXILLOFACIAL WO CONTRAST CT MAXILLOFACIAL WO CONTRAST Indication: PT FELL AND HIT NOSE ON SOAP DISPENSER X1WEEK, PAIN AND SWELLING Exposure: One or more of the following individualized dose reduction techniques were utilized for this examination: 1. Automated exposure control 2. Adjustment of the mA and/or kV according to patient size 3. Use of iterative reconstruction technique. Comparison: None are available. Contrast: None FACIAL BONES: Nasal bone: Intact Orbital floors: Intact Bones: No acute fracture is identified. Visualized sinuses: Mild mucosal thickening in the superior frontal sinus. Minimal ethmoid sinus mucosal thickening. No fluid levels. Globes/Orbits: Unremarkable. Mandible/Maxilla: Unremarkable. Soft tissue: There is some soft tissue swelling of the nose, particularly toward the left. IMPRESSION: 1. No evidence of acute fracture. 2. Soft tissue swelling of the nose, greater on the left. Electronically signed by: Miguel Workman MD (07/21/2018 3:02 PM) [id number] DICTATED and SIGNED BY: MIGUEL WORKMAN MD DATE: 07/21/18 1457 Course & Med Decision Making Course & Med Decision Making Pertinent Labs and Imaging studies reviewed. (See chart for details) This is a 53-year-old female patient presenting to the ED today with nose swelling and redness that began a week ago after she hit her nose on a soap dispenser. CT of the maxillary facial was noted for soft tissue swelling otherwise no acute findings. Patient has cellulitis of the nose. Tetanus was given in the ED. Was discharged on clindamycin. Also given Bactroban ointment to apply topically in and around the nose. Will follow-up with ENT provided. Dragon Disclaimer Dragon Disclaimer This electronic medical record was generated, in whole or in part, using a voice recognition dictation system. Departure Departure Impression: Primary Impression: Nose cellulitis Additional Impression: Contusion of nose, initial encounter Disposition: HOME, SELF-CARE Condition: STABLE Referrals: NO PCP (PCP) CHRISTINA PALACIO MD Follow up with your doctor or ENT in 1 week Patient Instructions: Cellulitis, [id number], Contusion, [id number] Additional Instructions: You have nose infection, use the prescribed medications as ordered. Complete your oral antibiotics. Follow up with the provided ENT as soon as you can. Scripts Clindamycin Hcl (CLINDAMYCIN HCL) 150 Mg Capsule 3 CAP PO TID, #90 CAP Prov: NANCY PHAN APRN 07/21/18 Tramadol Hcl (TRAMADOL HCL) 50 Mg Tablet 50 MG PO Q6HRS PRN for PAIN, #30 TAB Prov: NANCY PHAN APRN 07/21/18 Mupirocin Calcium (BACTROBAN CREAM) 15 Gm Cream..g. 1 JOSE M TP TID, #30 GM Prov: NANCY PHAN APRN 07/21/18 Problem Qualifiers NANCY PHAN APRN Jul 21, 2018 14:00
[2018-07-21] MEDS ORDERED: IOHEXOL 300 MG/ML 100ML VIAL. IV ONE (14:15)
[2018-07-21] MEDS ORDERED: CONTRAST GIVEN. MC PRN (14:30)
--- NOTE | 2018-07-21 15:05 | RAD ---
CT MAXILLOFACIAL WO CONTRAST Indication: PT FELL AND HIT NOSE ON SOAP DISPENSER X1WEEK, PAIN AND SWELLING Exposure: One or more of the following individualized dose reduction techniques were utilized for this examination: 1. Automated exposure control 2. Adjustment of the mA and/or kV according to patient size 3. Use of iterative reconstruction technique. Comparison: None are available. Contrast: None FACIAL BONES: Nasal bone: Intact Orbital floors: Intact Bones: No acute fracture is identified. Visualized sinuses: Mild mucosal thickening in the superior frontal sinus. Minimal ethmoid sinus mucosal thickening. No fluid levels. Globes/Orbits: Unremarkable. Mandible/Maxilla: Unremarkable. Soft tissue: There is some soft tissue swelling of the nose, particularly toward the left. IMPRESSION: 1. No evidence of acute fracture. 2. Soft tissue swelling of the nose, greater on the left. Electronically signed by: Miguel Workman MD (07/21/2018 3:02 PM) [id number]
[2018-07-21] MEDS ORDERED: MUPI15CR TP (15:54)
[2018-07-21] MEDS ORDERED: CLIN150C14 PO (15:54)
[2018-07-21] MEDS ORDERED: TRAM50TA PO (15:54)
[2018-07-21 16:08] VITALS: BP 118/62
== END 2018-07-21 16:08 | disposition home or self-care (01) ==
LOC: ER 13:35
DX: S00.33XA Contusion of nose, initial encounter (principal); J34.0 Abscess, furuncle and carbuncle of nose; F41.9 Anxiety disorder, unspecified; F32.9 Major depressive disorder, single episode, unspecified; E10.36 Type 1 diabetes mellitus with diabetic cataract; Z98.890 Other specified postprocedural states; W22.8XXA Striking against or struck by other objects, initial encounter; Y93.89 Activity, other specified; Y92.89 Other specified places as the place of occurrence of the external cause; Y99.8 Other external cause status
CPT/HCPCS: 70486; 90471; 90715; 99284

== ENCOUNTER → 2021-09-04 | Outpatient (CLI) | payer OTHER ==
[2018-09-18 15:00] VITALS: BP 122/68
[~2021-09-04] MED LIST changes: +CLIN150C16 PO; +MUPI15CR TP; -PANT40TA5 PO; +PANT40TA77 PO; +TRAM50TA PO
== END ==
LOC: SPEC 14:41
PROVIDERS: ATTEND Preventive Medicine Undersea and Hyperbaric Medicine
DX: E11.621 Type 2 diabetes mellitus with foot ulcer (principal); L97.512 Non-pressure chronic ulcer of other part of right foot with fat layer exposed
CPT/HCPCS: 87071; 87075

== ENCOUNTER 2022-01-14 19:15 | Inpatient (IN) | payer OTHER ==
[~2022-01-14] VITALS: Ht 162.6 cm; Wt 66.7 kg
[2022-01-14] MEDS ORDERED: RABIES IMMUNE GLOBULIN PF 300 UNIT/ML 5ML VIAL VAX IM ONE (20:00)
[2022-01-14] MEDS ORDERED: LIDOCAINE/EPI/TETRACAINE TOPICAL GEL 3 ML. TP ONE (20:00)
[2022-01-14] MEDS ORDERED: DIPHTH,PERTUSS(ACELL),TET TOX 0.5 ML DISP.SYRIN. VAX IM ONE (20:00)
[2022-01-14] MEDS ORDERED: RABIES VIRUS VACC PF 2.5 UNIT / 1 ML VIAL. VAX IM ONE (20:00)
[2022-01-14] MEDS ORDERED: AMPICILLIN/SULBACTAM 3 GM in IV NORMAL SALINE 100ML 100 ML IV ONE (20:15)
[2022-01-14] MEDS ORDERED: AMPICILLIN/SULBACTAM 3 GM in IV DEXTROSE 5% 100ML 100 ML IV ONE (20:15)
--- NOTE | 2022-01-14 20:18 | PHYS DOC ---
Past Medical History Past Medical History: Anxiety, Depression, Diabetes-Type I, Diabetes-Type II Additional Past Medical Histor: type 1 dm Past Surgical History: , Other Additional Past Surgical Histo: cataract bilat Smoking Status: Never Smoker Alcohol Use: None Drug Use: None General Adult EDM: Chief Complaint: ANIMAL BITE HPI: HPI: Is a 56-year-old female that presents today with multiple cat bites and scratches. Patient states that today feral cat in her neighborhood that she cares for decided to try and bite and scratch her on her legs around 10:00 today, and then around 1900 this evening the cat bit her on her hands bilateral ly and arms. Patient states that she cares for this But she believes this cat does not have any immunizations or any vaccines. Patient has a past medical history of diabetes for which she was just released from the [facility] on Tuesday for diabetic ketoacidosis, today her glucose upon arrival here to the emergency department was 484. Patient states her last tetanus shot was around 2014 she believes. Review of Systems: Review of Systems: Constitutional: Denies fever or chills. [] Eyes: Denies change in visual acuity. [] HENT: Denies nasal congestion or sore throat. [] Respiratory: Denies cough or shortness of breath. [] Cardiovascular: Denies chest pain or edema. [] GI: Denies abdominal pain, nausea, vomiting, bloody stools or diarrhea. [] : Denies dysuria. [] Musculoskeletal: Denies back pain or joint pain. [] Integument: Multiple cat bites and scratches on bilateral forearms, bilateral hands, bilateral lower legs, and bilateral feet Neurologic: Denies headache, focal weakness or sensory changes. [] Endocrine: Denies polyuria or polydipsia. [] Lymphatic: Denies swollen glands. [] Psychiatric: Denies depression or anxiety. [] Heart Score: C/O Chest Pain: No Risk Factors: Risk Factors: DM, Current or recent (<one month) smoker, HTN, HLP, family history of CAD, obesity. Risk Scores: Score 0 - 3: 2.5% MACE over next 6 weeks - Discharge Home Score 4 - 6: 20.3% MACE over next 6 weeks - Admit for Clinical Observation Score 7 - 10: 72.7% MACE over next 6 weeks - Early Invasive Strategies Current Medications: Current Medications Medications (Trade) Dose Ordered Sig/Reji Start Time Stop Time Status Last Admin Dose Admin Ampicillin Sodium/ Sulbactam Sodium 3 gm/Sodium Chloride 100 ml @ 200 mls/hr 1X ONCE 01/14/22 20:15 01/14/22 20:44 Diphtheria/ Tetanus/Acell Pertussis (Boostrix) 0.5 ml ONCE ONCE 01/14/22 20:00 01/14/22 20:04 DC Rabies Immune Globulin (HyperRAB 300 UNIT/ML 5ML VIAL) 3.7 ml ONCE ONCE 01/14/22 20:00 01/14/22 20:04 DC Rabies Vaccine (Imovax,Rabavert Rabies 2.5 Unit / ml) 1 ml ONCE ONCE 01/14/22 20:00 01/14/22 20:04 DC Tetracaine/ Epinephrine/ Lidocaine (Let (Oies-Fwrhrsv-Mzpis) Gel) 3 ml 1X ONCE 01/14/22 20:00 01/14/22 20:04 DC Allergies: Allergies: Allergies Coded Allergies Type Severity Reaction Last Updated Verified I S O L A T I O N *CONTACT* Allergy Unknown 09/20/18 Yes No Known Medication Allergies Allergy Unknown 09/20/18 Yes Physical Exam: PE: Constitutional: Well developed, well nourished, no acute distress, non-toxic appearance. [] HENT: Normocephalic, atraumatic, bilateral external ears normal, oropharynx moist, no oral exudates, nose normal. [] Eyes: PERRLA, EOMI, conjunctiva normal, no discharge. [] Neck: Normal range of motion, no tenderness, supple, no stridor. [] Cardiovascular:Heart rate regular rhythm, no murmur [] Lungs & Thorax: Bilateral breath sounds clear to auscultation [] Abdomen: Bowel sounds normal, soft, no tenderness, no masses, no pulsatile masses. [] Skin: Multiple cat scratches and bites noted to bilateral arms, bilateral hands, bilateral feet, and bilateral lower extremities, no uncontrolled hemorrhaging noted Back: No tenderness, no CVA tenderness. [] Extremities: Peripheral pulses are 2+ with neurovascular intact distal to the injuries patient has normal range of motion of all extremities and sensory is intact Neurologic: Alert and oriented X 3, normal motor function, normal sensory function, no focal deficits noted. [] Psychologic: Affect normal, judgement normal, mood normal. [] Current Patient Data: Labs: Laboratory Tests Test 01/14/22 19:44 Glucose (Fingerstick) 484 mg/dL (70-99) H Vital Signs: Vital Signs Date Time Temp Pulse Resp B/P (MAP) Pulse Ox O2 Delivery O2 Flow Rate FiO2 01/14/22 19:30 98.0 113 18 165/74 (104) 96 Room Air 98.0 EKG: EKG: [] Radiology/Procedures: Radiology/Procedures: [] Course & Med Decision Making: Course & Med Decision Making Pertinent Labs and Imaging studies reviewed. (See chart for details) 1952 called the [facility] poison control, they recommended that the patient have an update of her tetanus status basic wound care, and rabies vaccine and immunoglobulin. [address] Warren who is the patient's primary care physician he is agreeable to admitting the patient for IV antibiotics for the next 24 hours and for observation to make sure these wounds do not become infected. Patient's blood sugar is also elevated we will draw some basic labs on the patient. 2100 after let was applied to the wounds and pain was better controlled, wounds were cleansed by the nursing staff, copious amounts of irrigation were applied to the bites and scratches as necessary by the nursing staff, immunoglobulin and rabies was injected into the wounds on the lateral aspect of the left ankle and bilateral hands by Miguel LOO. Patient's tetanus was updated as well as rabies vaccine was given to the patient. Patient is to be admitted to the floor for 24 hours of antibiotics. Alesia Disclaimer: Alesia Disclaimer: This electronic medical record was generated, in whole or in part, using a voice recognition dictation system. Departure Departure Impression: Primary Impression: Hyperglycemia Additional Impressions: Cat bite of left ankle Qualified Codes: S91.052A - Open bite, left ankle, initial encounter; W55 .01XA - Bitten by cat, initial encounter Cat bite of multiple sites of hand and wrist Qualified Codes: S61.459A - Open bite of unspecified hand, initial encounter; S61.559A - Open bite of unspecified wrist, initial encounter; W55.01XA - Bitten by cat, initial encounter Cat bite of right hand Qualified Codes: S61.451A - Open bite of right hand, initial encounter; W55.01XA - Bitten by cat, initial encounter Cat bite of right lower leg Qualified Codes: S81.851A - Open bite, right lower leg, initial encounter; W55.01XA - Bitten by cat, initial encounter Cat bite of right palm Qualified Codes: S61.451A - Open bite of right hand, initial encounter; W55.01XA - Bitten by cat, initial encounter Disposition: 09 ADMITTED INPATIENT Admitting Physician: David Warren Condition: STABLE Referrals: BASIA HEARN PA-C (PCP) AMPARO QUEEN APRN Jan 14, 2022 20:18
[2022-01-14 20:58] LABS: BASO # 0.1 x10^3/uL (0.0-0.2); BASO % 1 % (0-3); EOS # 0.5 x10^3/uL (0.0-0.7); EOS % 6 % (0-3); HEMOGLOBIN 10.5 g/dL (12.0-15.5); LYMPH # 1.7 x10^3/uL (1.0-4.8); LYMPH % 18 % (24-48); MEAN CORPUSCULAR HEMOGLOBIN 28 pg (25-35); MEAN CORPUSCULAR HGB CONC 33 g/dL (31-37); MEAN CORPUSCULAR VOLUME 85 fL (79-100); MONO # 0.7 x10^3/uL (0.0-1.1); MONO % 7 % (0-9); NEUT # 6.2 x10^3/uL (1.8-7.7); NEUT % 68 % (31-73); PLATELET COUNT 326 x10^3/uL (140-400); RED BLOOD COUNT 3.75 x10^6/uL (3.50-5.40); RED CELL DISTRIBUTION WIDTH 14.4 % (11.5-14.5); WHITE BLOOD COUNT 9.2 x10^3/uL (4.0-11.0)
[2022-01-14 21:11] LABS: CALCIUM 9.2 mg/dL (8.5-10.1); CREATININE 1.2 mg/dL (0.6-1.0); GFR 46.6; POTASSIUM 4.3 mmol/L (3.5-5.1)
[2022-01-14 21:17] LABS: ALBUMIN 3.4 g/dL (3.4-5.0); ALBUMIN/GLOBULIN RATIO 0.8 (1.0-1.7); TOTAL BILIRUBIN 0.4 mg/dL (0.2-1.0); TOTAL PROTEIN 7.7 g/dL (6.4-8.2)
[2022-01-14] MEDS ORDERED: ACETAMINOPHEN 325 MG TABLET. PO PRN (21:45)
[2022-01-14] MEDS ORDERED: fentaNYL PF VIAL 100 MCG/2 ML VIAL IVP PRN (21:45)
[2022-01-14 23:00] VITALS: BP 157/82
[2022-01-15] VITALS (12 sets, daily range): BP systolic 90–139; BP diastolic 40–84
[2022-01-15] MEDS ORDERED: BUSP10TA PO (00:28)
[2022-01-15] MEDS ORDERED: SERT50TA PO (00:30)
[2022-01-15] MEDS ORDERED: GABA-585 PO (00:30)
[2022-01-15] MEDS ORDERED: CHOL5000 PO (00:33)
[2022-01-15] MEDS ORDERED: AMPICILLIN/SULBACTAM 3 GM in IV NORMAL SALINE 100ML 100 ML IV SCH (01:00)
[2022-01-15] MEDS: AMPICILLIN/SULBACTAM 3 GM in IV DEXTROSE 5% 100ML 100 ML IV SCH ×4 (01:02→18:40)
[2022-01-15] MEDS: HYDROcodone/APAP 5/325MG 1 TAB TABLET PO PRN ×3 (06:31→18:41)
[2022-01-15] MEDS ORDERED: IBUPROFEN 400 MG TABLET. PO PRN (08:15)
[2022-01-15] MEDS ORDERED: traMADol 50 MG TABLET PO PRN (08:15)
[2022-01-15] MEDS: SERTRALINE 50 MG TABLET. PO SCH (09:18)
[2022-01-15] MEDS: PANTOPRAZOLE 40 MG TABLET.DR. PO SCH (09:18)
[2022-01-15] MEDS: busPIRone 10 MG TABLET. PO SCH ×2 (09:18→21:43)
[2022-01-15] MEDS: GABAPENTIN 100 MG CAPSULE. PO SCH ×3 (09:18→21:43)
--- NOTE | 2022-01-15 09:19 | HP ---
DATE OF SERVICE: 01/15/2022 ADMIT DATE: 01/14/2022 CHIEF COMPLAINT: Multiple cat bites. HISTORY OF PRESENT ILLNESS: The patient is an insulin-dependent diabetic, seen in our office and was attacked by her own cat, was an unprovoked attack apparently, not a vaccinated cat. She has scratches and bites on her right arm and both legs and they occurred on the day of admission. She was given rabies prophylaxis and was started on IV Unasyn and feels a little better at this time. She was just in [facility] according to her earlier this week for diabetic ketoacidosis and takes modest amounts of insulin in the home setting. Tetanus status was updated as well. PAST MEDICAL HISTORY: She has had a hip fracture repair last year and has a history of diabetic retinopathy. MEDICATIONS: Listed per the chart. ALLERGIES: No allergies are known. SOCIAL HISTORY: Single, disabled, nondrinker, nonsmoker to my knowledge. FAMILY HISTORY: Unremarkable. REVIEW OF SYSTEMS: Unremarkable. OBJECTIVE: ENT: All within normal limits. NECK: No masses, nodes or bruits. LUNGS: Clear without tachypnea. CARDIOVASCULAR: Regular rate. No irregular beat or murmur. ABDOMEN: Soft, benign and nontender. EXTREMITIES: She has numerous scratches and superficial bites and claw rojas primarily on the right arm and the right palm and on both lower legs. There is no sign of abscess or penetrating wounds to her joints at this time. Pedal pulses are good. NEUROLOGIC: Physiologic, nonfocal. Vision was not tested. She is alert and responsive. GENITOURINARY AND RECTAL: Deferred. ASSESSMENT: Multiple cat bites and scratches in an insulin-dependent diabetic with poor control. Recent A1c was 11.6. PLAN: Continue IV Unasyn and supportive care for now. Likely p.o. Augmentin by tomorrow. EVAN/RAFFY/MOH DR: Rishi TID: [id number]
[2022-01-15] MEDS: INSULIN LISPRO 300 UNITS/3 ML VIAL. SQ SCH ×4 (09:30→18:46)
[2022-01-15] MEDS: INSULIN GLARGINE SYRINGE. SQ SCH ×2 (09:30→21:45)
--- NOTE | 2022-01-15 12:53 | NUR ---
Wound Care Wound Type/Assessment: Consult to eval and treat patient who admitted following an attack by her cat. Upon assessment, multiple scratches and puncture rojas observed to bilateral anterior legs and bilateral forearms and hands. The majority of the scratches are scabbed with pink margins. The right palmar thumb pad is swollen, painful, and deeply bruised. Dried blood cleansed from had, revealing no open wounds, but more scratches and punctures. Pt reports the R thumb pad is where the cat first attacked and had clung there for some time. 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 Treatment Recommendations/Plan: Arm and Leg injuries: Cleanse gently with soap and water daily. Savanna all scabs with betadine every day top keep dry and prevent infection. Maintain blood sugars below 180 to encourage wound healing. Education provided: Diabetes and wound care education Offloading surface/device: pt is independent with mobility Recommended Referrals/Tests: None at this time. Discharge Recommendations for dressings: As above. No follow up with outpatient wound care necessary at present.
--- NOTE | 2022-01-15 15:32 | NUR ---
Per [facility] policy, pt assessed and is not deemed an elopement risk at this time.
[2022-01-15] MEDS ORDERED: ONDANSETRON ODT 4 MG TAB.RAPDIS. PO PRN (19:00)
[2022-01-15] MEDS: LACTOBACILLUS RHAMNOSUS GG 1 CAPSULE. PO SCH (21:43)
[2022-01-16] MEDS: AMPICILLIN/SULBACTAM 3 GM in IV DEXTROSE 5% 100ML 100 ML IV SCH ×3 (00:40→12:08)
[2022-01-16 02:53] VITALS: BP 110/59
[2022-01-16 07:00] VITALS: BP 110/63
[2022-01-16] MEDS: INSULIN LISPRO 300 UNITS/3 ML VIAL. SQ SCH ×2 (08:00→12:13)
[2022-01-16] MEDS ORDERED: AMOX1TAB61 PO (08:18)
[2022-01-16] MEDS: PANTOPRAZOLE 40 MG TABLET.DR. PO SCH (08:57)
[2022-01-16] MEDS: busPIRone 10 MG TABLET. PO SCH (08:57)
[2022-01-16] MEDS: SERTRALINE 50 MG TABLET. PO SCH (08:57)
[2022-01-16] MEDS: GABAPENTIN 100 MG CAPSULE. PO SCH (08:57)
[2022-01-16] MEDS: LACTOBACILLUS RHAMNOSUS GG 1 CAPSULE. PO SCH (08:57)
[2022-01-16] MEDS: HYDROcodone/APAP 5/325MG 1 TAB TABLET PO PRN (08:57)
[2022-01-16] MEDS: INSULIN GLARGINE SYRINGE. SQ SCH (09:03)
[2022-01-16 11:02] VITALS: BP 98/47
--- NOTE | 2022-01-16 15:15 | NUR ---
Pt discharged home with self care. discharge instructions reviewed with patient and family member, pt verbalized understanding. Pt unable to sign paperwork as her hands are swollen from scratches, Edu RN verified. pt transported off unit with all belongings via wheelchair.
--- NOTE | 2022-01-16 19:59 | DS ---
DATE OF DISCHARGE: 01/16/2022 PRIMARY DIAGNOSES: 1. Multiple cat bites and scratches with early infection of the same. 2. Insulin-dependent diabetic. 3. Recent episode of diabetic ketoacidosis. 4. Diabetic retinopathy. CHIEF COMPLAINT AND HISTORY OF PRESENT ILLNESS: This 56-year-old type 1 diabetic since age 13 was unprovokedly attacked by her cat in her bedroom involving both arms and legs with multiple scratches and bites. She was given a rabies prophylaxis in the Emergency Room, started on IV Unasyn and admitted for the same. SUMMARY OF STAY: The patient was admitted, continued on IV Unasyn through the stay and transitioned to Augmentin at discharge. Her major complaint on the day of discharge was that of her right hand with still very limited flexion and extension of her fingers and fairly marked swelling; however, there was no excessive heat, redness etc and it was felt that Augmentin should be a good option and a lot of the swelling and stuff was just traumatic in nature. She was felt she could be dismissed with close outpatient followup and this was accomplished. DISPOSITION: The patient is discharged to home,. DIET: ADA diet. ACTIVITY: As tolerated, office this week at Dr. Warren's office. DISCHARGE MEDICATIONS: Listed on the med rec and have been addressed. MONTSE/DHARMESH/MOH DR: MONTSE/annamarie TID: [id number] CC: TOMA WARREN MD
== END 2022-01-16 15:15 | disposition home or self-care (01) | DRG 605 ==
LOC: ER 19:15 → 2 NORTH 20:20 → 4 NORTH 01-15 13:16
PROVIDERS: ADMIT Family Medicine; ATTEND Family Medicine
DX: S61.451A Open bite of right hand, initial encounter (principal); S81.851A Open bite, right lower leg, initial encounter; W55.01XA Bitten by cat, initial encounter; Z79.4 Long term (current) use of insulin; F32.A Depression, unspecified; F41.9 Anxiety disorder, unspecified; E11.319 Type 2 diabetes mellitus with unspecified diabetic retinopathy without macular edema; Y93.89 Activity, other specified; Y92.89 Other specified places as the place of occurrence of the external cause; Y99.8 Other external cause status
CPT/HCPCS: 36415; 80053; 82962; 85025; 87040; 90375; 90471; 90675; 90715; G0379; J0295; J1815; J3010; J7060; G0378